=== PATIENT | male | born 1995 | race Caucasian/White ===

== ENCOUNTER 2020-02-17 11:00 | Emergency (ER) | payer SELFPAY ==
[2020-02-17 11:10] VITALS: BP 143/96; RESP 20; TEMP 36.9; O2SAT 96; BMI 27.3
--- NOTE | 2020-02-17 11:22 | CT_ITS ---
WS: [id number] CT ORBITS, NONCONTRAST. HISTORY: right orbit injury Technique: All CT scans at [facility] use at least one of these dose optimization techniq ues: automated exposure control; mA and/or kV adjustment per patient size (includes targeted exams wh ere dose is matched to clinical indication); or iterative reconstruction. DLP: 389.32 mGy.cm COMPARISON: None available. No acute fractures are identified. Nasal bones and zygomatic arches are intact. No air-fluid levels i n the sinuses. Herrera of the orbits are intact. Lamina papyracea are still intact also. There is moder ate soft tissue edema and swelling centered over the RIGHT orbit, maxillary sinus and zygomatic arch. Soft tissue edema extends over the globe. There is no post septal hematoma or edema. Globe is intact . CT/CT orbit BI wo con* [id number] IMPRESSION: 1. No orbital fracture. 2. Large amount of soft tissue edema and hematoma centered over the RIGHT glob e, orbit and facial bones.
[2020-02-17 11:27] VITALS: BP 159/107; PULSE 71; RESP 16; O2SAT 97
--- NOTE | 2020-02-17 11:27 | ED_ITS ---
HPI - Headache General: Chief Complaint: Eye Problems Stated Complaint: Right eye Time Seen by Provider: 02/17/20 11:03 History of Present Illness: HPI Narrative: 24-year-old male patient presents to the emergency department with right eye injury/pain/black eye. States was playing baseball last night when the baseball hit him in the eye, he reports eye is swollen shut, complaining of periorbital right eye pain. He states did not lose consciousness, did not vomit, he reports blurred vision from the right eye when he tries to open it. He does report some dizziness. Pertinent past history: recent trauma Onset (ago): hour(s) (12) Location: right and other (Periorbital) Severity: moderate Quality & Timing: aching and throbbing Exacerbating factors: movement of head/neck Relieving factors: rest Context: occurred with exertion/activity and recent head injury Associated symptoms: Reports no associated symptoms; Deny chest pain, confusion, diaphoresis, fever(s), nausea, rash or vomiting Treatments prior to arrival: none Review of Systems General: Reports: 10 or more systems reviewed and unremarkable except in HPI and below Const: Denies: fever(s), chills or diaphoresis Eyes: Denies: blurry vision or eye redness ENMT: Denies: throat pain, dental pain or disequilibrium Card: Denies: chest pain, palpitations or irregular heart rhythm Resp: Denies: dyspnea, productive cough, non-productive cough or wheezing GI: Denies: abdominal pain, nausea or vomiting : Denies: dysuria Musc: Denies: back pain Skin/Breast: Denies: rash or pruritus Neuro: Reports: headache(s) and dizziness; Denies: weakness in extremities, difficulty walking, confusion, behavioral changes or difficulty communicating thoughts Tiago/Lymph: Denies: easy bruising Physical Exam Const: COMMON NORMALS: no acute distress, patient oriented x3, healthy appearing and alert GENERAL APPEARANCE: cooperative, comfortable and well hydrated HENMT: COMMON NORMALS: external ears normal, TM's normal bilaterally, Normal external nose present, Normal nasal mucous membranes and turbinates present and moist oral mucous membranes HEAD & SCALP: occipital foramen tenderness (with ecchymosis) on the right FACE & SINUS: sinus tenderness maxillary and erythema; no abrasion, no laceration and no maxillary instability NOSE: Normal external nose present, Normal nares present, Normal nasal mucous membranes and turbinates present, No nasal discharge present and Abnormal external nose present EXTERNAL EAR: Yes external ears normal TYMPANIC MEMBRANE: TM's normal bilaterally MOUTH: Normal oral and palatal mucosa present THROAT: posterior oropharynx normal Eye: COMMON NORMALS: Equal, round and reactive pupils present and EOMs intact bilaterally VISUAL CHUN: No peripheral vision loss and No central vision loss PERIORBITAL: periorbital findings abnormal positive right EYELID: eyelid abnormality (with edema and ecchymosis) right upper eyelid and right lower eyelid CORNEA: Yes corneas normal, fluorescein used and other (difficult exam due to eyelid edema) PUPIL: Yes Equal, round and reactive pupils present, Yes pupil size - right Right pupil size (mm): 4 and Yes pupil size - left Left pupil size (mm): 4 EOM: No EOM abnormal and No movement deficit Neck/C-Spine: COMMON NORMALS: full ROM and no lymphadenopathy GENERAL: Yes normal visual inspection and Yes trachea midline CERVICAL SPINE: Yes cervical ROM normal, No pain with cervical ROM, No Cervical spine tenderness and No Paracervical muscle tenderness Lymph: LYMPHATIC: no lymphadenopathy noted Chest: COMMONS NORMALS: normal inspection of the chest Resp: COMMON NORMALS: normal respiratory effort and clear to auscultation bilaterally AUSCULTATION: clear to auscultation bilaterally Cardio: COMMON NORMALS: regular rhythm, S1 normal heart sound present and S2 normal heart sound present RHYTHM: regular rhythm HEART SOUNDS: S1 normal heart sound present and S2 normal heart sound present GI: COMMON NORMALS: Soft to palpation and non-tender INSPECTION: Yes normal to inspection PALPATION: Yes Soft to palpation : COMMON NORMALS: Yes no CVA tenderness BLADDER/KIDNEY EXAM: Yes no CVA tenderness Back/Pelvis: COMMON NORMALS: no CVA tenderness and thoracic and lumbar spine normal to inspection Extremity: COMMON NORMALS: normal to inspection and capillary refill normal Neuro: COMMON NORMALS: patient oriented x3 and no focal motor deficits SENSORIUM/ORIENTATION: Yes alert Psych: COMMON NORMALS: mental status grossly normal, Normal thought process present and cooperative ACTIVITY/MOTOR BEHAVIOR: Yes appropriate eye contact THOUGHT PROCESS: Normal thought process present Skin: COMMON NORMALS: no rashes or lesions noted and turgor normal GENERAL SKIN EXAM: no rashes or lesions noted and turgor normal Course ED course: 24-year-old male patient presents to the emergency department with right eye injury. CT of the right orbit did not reveal acute fracture, positive for moderate tissue edema and swelling. Fluorescein stain attempted but was difficult to eyelid edema. No acute corneal abrasion appreciated. Eye tracking intact without deficit. CT results discussed with the patient as well as need to return to the emergency department if he develops the worst headache of his life, confusion and vomiting. Verbalized understanding. Agrees to follow-up with his primary care physician in 4 to 5 days if he fails to improve. He agrees to apply cool compresses and take anti-inflammatories as needed for pain. Vital Signs: Vital signs: Vital Signs Temperature 98.4 F 02/17/20 11:10 Pulse Rate 71 02/17/20 11:27 Respiratory Rate 16 02/17/20 13:19 Blood Pressure 131/99 02/17/20 13:19 Pulse Oximetry 97 02/17/20 11:27 MDM - Headache Imaging Data^: CT Head: Radiologist's impression: [place] [address] CT Scan Report Signed Patient: Aaron Bermeo Unit #: [id number] : 1995 Age/Sex: 24 / M ADM Date: 02/17/20 Loc: ER Room/Bed: Attending Dr: Ordering Provider/Ordering MD: Sandy Bradley Date of Service: 02/17/20 Procedure(s): CT orbit BI wo con* [id number] Accession Number(s): [id number] Report Number: [id number] WS: [id number] CT ORBITS, NONCONTRAST. HISTORY: right orbit injury Technique: All CT scans at [facility] use at least one of these dose optimization techniques: automated exposure control; mA and/or kV adjustment per patient size (includes targeted exams where dose is matched to clinical indication); or iterative reconstruction. DLP: 389.32 mGy.cm COMPARISON: None available. No acute fractures are identified. Nasal bones and zygomatic arches are intact. No air-fluid levels in the sinuses. Herrera of the orbits are intact. Lamina papyracea are still intact also. There is moderate soft tissue edema and swelling centered over the RIGHT orbit, maxillary sinus and zygomatic arch. Soft tissue edema extends over the globe. There is no post septal hematoma or edema. Globe is intact. CT/CT orbit BI wo con* [id number] IMPRESSION: 1. No orbital fracture. 2. Large amount of soft tissue edema and hematoma centered over the RIGHT globe, orbit and facial bones. Dictated By: Christina Lewis DO Signed By: Christina Lewis DO Signed Date/Time: 02/17/20 1240 DD/ 1237 Discharge Plan Discharge Patient Disposition: Home Clinical Impression: Traumatic hematoma of right orbit Qualifiers: Encounter type: initial encounter Qualified Code(s): S05.11XA - Contusion of eyeball and orbital tissues, right eye, initial encounter Facial contusion Qualifiers: Encounter type: initial encounter Qualified Code(s): S00.83XA - Contusion of other part of head, initial encounter Condition: Stable Prescriptions: New IBU 800 mg tablet 800 mg PO TID PRN (Reason: pain) Qty: 30 RF: 0 No Action alprazolam 0.5 mg tablet 0.5 mg PO DAILY PRN (Reason: anxiety) 30 Days Qty: 24 RF: 4 Discharge Orders: Discharge Order (Routine); Ordered 02/17/20 Ordered By: Sandy Bradley Referrals: Aneta Pack MD [Primary Care Provider] - Discharge Diet: Usual diet Discharge Activity: Limit activity as instructed Patient Instructions: Black Eye (ED), Minor Head Injury (ED), Contusion in Adults (ED) Activity Restrictions/Additional Instructions: Limit activity today and tomorrow Keep the head of your bed elevated during sleep and rest, this will help decrease swelling Return to the emergency department if you develop the worst headache of your life, vomiting uncontrollably or confusion Cool compresses to the right eye, this will help with swelling and pain Prescription of ibuprofen has been given to you, do not take [id number] medication with exception of Tylenol as duplicate therapy can occur Return to the emergency department if you experience decreased vision or inability to see from the right eye. Follow-up with your primary care physician if you fail to improve in the next 4 to 5 days. Discharge Date/Time: 02/17/20 13:22 Coding Level of Care Code ED Cash Processing Specialist for Dalila Fwd Exam Comprehensive
[2020-02-17] MEDS: acetaminophen 500 mg Tablet 1000 MG PO (12:02)
[2020-02-17] MEDS: fluorescein 1 mg Strip EYE-RIGHT (12:09)
[2020-02-17] MEDS: tetracaine 0.5% Op Soln 4 mL Btl 1 DROP EYE-RIGHT (12:10)
[2020-02-17] MEDS: eye irrigation 30 mL Btl EYE-RIGHT (12:10)
[2020-02-17 13:19] VITALS: BP 131/99; RESP 16
== END 2020-02-17 13:22 | disposition home or self-care (01) ==
PROVIDERS: Emergency Provider Nurse Practitioner Family; PCP Family Medicine
DX: S05.11XA Contusion of eyeball and orbital tissues, right eye, initial encounter (principal); S00.83XA Contusion of other part of head, initial encounter; W21.03XA Struck by baseball, initial encounter; Y93.64 Activity, baseball
CPT/HCPCS: 12345; 70480; 99281; 99283

== ENCOUNTER 2020-11-01 20:33 | Observation (INO) | payer SELFPAY ==
[2020-11-01 20:39] VITALS: BP 136/85; PULSE 123; RESP 16; TEMP 37.2; O2SAT 96; BMI 27.3
[2020-11-01 20:44] VITALS: PULSE 123; RESP 18; O2SAT 97
--- NOTE | 2020-11-01 20:46 | CTR_ITS ---
PROCEDURE INFORMATION: Exam: CT Head Without Contrast Exam date and time: 11/01/2020 8:46 PM Age: 25 years old Clinical indication: Condition or disease; Convulsions or seizures; Additional info: Seizure TECHNIQUE: Imaging protocol: Computed tomography of the head without contrast. Radiation optimization: All CT scans at this facility use at least one of these dose optimization techniques: automated exposure control; mA and/or kV adjustment per patient size (includes targeted exams where dose is matched to clinical indication); or iterative reconstruction. COMPARISON: CT orbit BI wo con* [id number] 02/17/2020 12:11 PM RADIATION DOSE METRICS: Total DLP (mGy-cm): 841.46 FINDINGS: Brain: The brain is unremarkable. There is no mass effect or significant white matter disease. There is no acute intracranial hemorrhage. Cerebral ventricles: There is no significant ventricular dilation. The basal cisterns are unremarkable. Paranasal sinuses: The paranasal sinuses are clear. Mastoid air cells: The mastoid air cells are clear. Bones/joints: The calvarium is intact. Soft tissues: The visible extracranial soft tissues are unremarkable. CT/CT head wo con* [id number] IMPRESSION: No acute findings. Radiation Dose CTDIVOL = (mGy): DLP = 841.46 (mGy-cm)
--- NOTE | 2020-11-01 20:48 | XRR_ITS ---
PROCEDURE INFORMATION: Exam: XR Chest Exam date and time: 11/01/2020 8:48 PM Age: 25 years old Clinical indication: Other: Seizure TECHNIQUE: Imaging protocol: XR of the chest. Views: 2 views. COMPARISON: No relevant prior studies available. FINDINGS: Lungs: Unremarkable. No consolidation. Pleural spaces: Unremarkable. No pleural effusion. No pneumothorax. Heart/Mediastinum: Unremarkable. No cardiomegaly. Bones/joints: Unremarkable. XR/XR chest 2V* [id number] IMPRESSION: No acute findings.
[2020-11-01 21:07] LABS: Basophils # 0.1 10^3/uL (0.0-0.1); Basophils % 0.9 %; Eosinophils # 0.1 10^3/uL (0.0-0.8); Eosinophils % 0.8 %; Hematocrit 50.3 % (42.0-52.0); Hemoglobin 16.6 g/dL (11.7-16.6); Lymphocytes # 2.8 10^3/uL (0.8-4.8); Lymphocytes % 26.4 %; Mean Corpuscular Hemoglobin 35.1 pg (28.0-34.0); Mean Corpuscular Volume 106.3 fL (80-94); Monocytes # 1.2 10^3/uL (0.2-0.9); Monocytes % 10.8 %; Neutrophils # 6.41 10^3/uL (1.8-7.7); Neutrophils % 60.2 %; Nucleated Red Blood Cells % 0 %; Platelet Count 243 10^3/cmm (130-400); Red Blood Count 4.73 10^6/uL (4.1-5.3); Red Cell Distribution Width 11.7 % (12.1-15.1); White Blood Count 10.7 10^3/uL (4.0-10.0)
[2020-11-01 21:12] LABS: Amphetamines Screen Urine Negative (Negative); Barbiturates Screen Urine Negative (Negative); Benzodiazepines Screen Urine Positive (Negative); Cocaine Screen Urine Negative (Negative); Opiate Screen Urine Negative (Negative); PCP Screen Urine Negative (Negative); THC Screen Urine Negative (Negative)
[2020-11-01 21:23] LABS: Add Urine Culture? No; Add Urine Microscopic? YES; Bacteria Urine TRACE /hpf; Bilirubin Urine Neg (Negative); Blood Urine 3+ (Negative); Glucose Urine UA Norm (Normal); Hyaline Casts Urine 25-40 /lpf; Ketones Urine 1+ (Negative); Leukocyte Esterase Urine Negative (Negative); Mucus Urine 1+ /hpf; Nitrate Urine Negative (Negative); Protein Urine 2+ (Negative); RBC Urine 0-4 /hpf (0-2); Squamous Epithelial Cell Urine 0-4 /hpf (0-5); Urine Appearance Clear (CLEAR); Urine Color Yellow (Yellow); Urobilinogen Urine Norm (Negative); WBC Urine 0-4 /hpf (0-5); pH Urine 5 (5-7)
[2020-11-01 21:28] VITALS: BP 128/84; PULSE 96; RESP 19; O2SAT 100
[2020-11-01 21:34] LABS: Alanine Aminotransferase 98 U/L (0-41); Albumin Level 5.3 g/dL (3.5-5.2); Alkaline Phosphatase 124 IU/L (40-130); Anion Gap 41.5 (5-19); Aspartate Amino Transferase 131 U/L (0-40); Blood Urea Nitrogen 12 mg/dL (6-20); C Reactive Protein 3.5 mg/L (0.0-4.9); Calcium 9.7 mg/dL (8.5-10.5); Carbon Dioxide 10 mmol/L (22-29); Chloride 91 mmol/L (98-107); Globulin 3.5 g/dL (1.3-4.6); Glomerular Filtration Rate 45.8 mL/min (90-130); Glucose 156 mg/dL (65-115); Osmolality Calculated 291 mOsm/kg (285-295); Potassium 3.5 mmol/L (3.5-5.1); Sodium 139 mmol/L (136-145); Thyroid Stimulating Hormone 3.58 uIU/mL (0.27-4.20); Total Bilirubin 0.8 mg/dL (0.15-1.2); Total Protein 8.8 g/dL (6.6-8.7)
[2020-11-01 21:35] LABS: Creatine Phosphokinase 403 U/L (39-308)
[2020-11-01] MEDS: acetaminophen 500 mg Tablet 1000 MG PO (21:47)
[2020-11-01] MEDS: sodium chloride 0.9% 1,000 ML 999 ML IV (21:47)
[2020-11-01 22:34] LABS: Alcohol Level 25 mg/dL (0-10)
[2020-11-01 23:02] VITALS: BP 127/80; PULSE 88; RESP 18; O2SAT 99
[2020-11-01 23:21] LABS: Lactic Sepsis W/Reflex 1.2 mmol/L (0.5-2.2)
[2020-11-01 23:25] LABS: ABG PCO2 32.5 mmHg (35-45); ABG PH Result 7.44 (7.35-7.45); Arterial Blood Gas Hematocrit 45.5 % (42-52); Base Excess ABG -1.5 mmol/L (-2.0-2.0); Blood Gas Allen Test Pos; Blood Gas Sample Site Radial, right; Blood Gas Sample Type Arterial; HCO3 ABG 21.9 mmol/L (22-26); Oxygen Device ROOM AIR; PO2 ABG 89.5 mmHg (80.0-100.0)
--- NOTE | 2020-11-02 | P.HP_ITS ---
Providers/Chief Complaint Primary Care Provider: Aneta Pack MD Chief Complaint: SEIZURE History of Present Illness Aaron Bermeo is a 25 year old male with no known medical history presented today with chief complaint of an episode of seizure. 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 His seizure was witnessed by his fianc?e. Seizure duration 30 seconds. He bit his tongue however no rectal or urinary incontinence. No previous history of seizure. Of note he has been experiencing headache which she is describing as throbbing frontal pain without rhinorrhea. He has not noticed any weakness in his arms or legs or vision change. He chews tobacco and does drink beer on occasional basis. Denies IV drug abuse. Diagnostics in the ER revealed mild leukocytosis, KIMBERLY, signs of dehydration, CPK 400, normal TSH, CT head and chest x-ray unremarkable, currently being admitted for IV fluid hydration because of KIMBERLY and signs of dehydration Review of Systems Const: Denies: fever(s) Eyes: Denies: change in vision ENMT: Denies: throat pain Card: Denies: chest pain Resp: Denies: dyspnea GI: Denies: abdominal pain : Denies: flank pain Musc: Denies: neck pain Skin/Breast: Denies: rash Neuro: Reports: headache(s) and seizure-like activity Psych: Denies: anxiety Endo: Denies: polyuria Tiago/Lymph: Denies: easy bruising All/Imm: Denies: urticaria Medications/Allergies Home Medications Medication Instructions Recorded Confirmed Last Taken Type alprazolam 0.5 mg tablet 0.5 mg PO DAILY PRN 60 Days #60 tab 07/15/20 07/15/20 Unknown Rx Allergies Allergy/AdvReac Type Severity Reaction Status Date / Time seafood Allergy itching Uncoded 11/01/20 20:44 PFSH Acute PFSH: Medical History (Updated 11/02/20 @ 01:57 by Paris Soria MD) Anxiety Insomnia Surgical History (Updated 11/02/20 @ 01:57 by Paris Soria MD) No pertinent past surgical history Family History (Updated 11/02/20 @ 01:57 by Paris Soria MD) Other CAD (coronary artery disease) Cancer Social History (Updated 11/02/20 @ 01:57 by Paris Soria MD) Smoking and tobacco status: current some day smoker smokeless tobacco Alcohol intake: current Alcohol intake frequency: holidays/special occasions only Substance/Drug Use: never Housing: House Vitals/I&O/Wt Last Vital Signs Temp 98.9 F 11/01/20 20:39 Pulse 88 11/01/20 23:02 Resp 18 11/01/20 23:02 BP 127/80 11/01/20 23:02 Pulse Ox 99 11/01/20 23:02 11/01/20 11/01/20 11/02/20 14:59 22:59 06:59 Intake Total 1000 / 1000 Balance 1000 / 1000 Weight last 48 hrs Weight 81.647 kg Physical Exam Narrative: EXAM NARRATIVE: Young male currently laying comfortably in his bed Sinus rhythm, no active chest pain Looks clinically dehydrated w flushed skin Tongue bite wound noted No abdominal pain No neurological deficit awake alert and attentive GCS 15 Appropriate mood and affect No joint swelling EOMI, PERRLA No signs of meningitis no audible stridor or wheezing Data : 11/01/20 20:20 11/01/20 20:20 A&P Assessment and plan (1) Seizure: Status: Acute (2) Dehydration: Status: Acute (3) KIMBERLY (acute kidney injury): Status: Acute Additional A&P Information Seizure, tonic-clonic for 30 seconds Patient is complaining of headache which he is attributing to lack of sleep he takes alprazolam for sleep and last 48 hours he only slept 1 to 2 hours, no fever, chest pain, shortness of breath, patient is endorsing headache which he describing as throbbing in nature, no rhinorrhea, his headache does not get worse with sneezing or coughing, no signs of meningitis No severe electrolyte abnormality No etiology found for this isolated event of seizure, CT head unremarkable, CPK 403 with signs of dehydration Continue fluid resuscitation He will need outpatient neurology follow-up Mild KIMBERLY: Anticipating improvement with fluid resuscitation Patient denies Vaps, endorses chewing tobacco and occasional beer usage Full code Regular diet DVT prophylaxis not indicated Attestations Medical Necessity Statement*: Anticipating discharge within 48 hours, overnight monitoring needed because of IV fluid hydration requirement for improvement of KIMBERLY Time Spent in Patient Care: 30mins Coding Level of Care Code Acute Theater Set Production Designer for Chg Fwd Diagnoses Seizure R56.9 Dehydration E86.0 KIMBERLY (acute kidney injury) N17.9
--- NOTE | 2020-11-02 00:59 | ED_ITS ---
HPI - Seizure General: Chief Complaint: ER Hold Stated Complaint: SEIZURE Time Seen by Provider: 11/01/20 20:40 Source: patient and EMS Mode of arrival: EMS Limitations: no limitations History of Present Illness: HPI Narrative: This is a 25 year old male with no prior history of seizures, who was brought in to the ED via EMS with complaints of a witnessed seizure. It was described as generalized tonic clonic and lasted about 45 seconds. He was subsequently in a post ictal period for about 4 minutes. He thinks he may have had a heat stroke as he had been out working all day in the heat. He then subsequently played soft ball. No fever, no prior illness. He denies chest pain or shortness or dizziness. complaint: seizure Onset (ago): minute(s) (30) Description of Episode: tonic-clonic movement Duration of episode: 45 -: second(s) Witnessed: Yes - by Bystander Trauma: No Seizure History: No Place: Outdoors Possible Precipitating Event: none Associated symptoms: Deny chest pain, chills, confusion, cough, diaphoresis, fever(s), anorexia, malaise, rash, short of breath, syncope or weakness Review of Systems General: Reports: 10 or more systems reviewed and unremarkable except in HPI and below Const: Denies: fever(s), chills, malaise or diaphoresis Card: Denies: chest pain or syncope Neuro: Denies: confusion PFSH ED PFSH: Medical History (Updated 11/19/20 @ 16:13 by Liberty Calvo MD, [facility] [place]) Anxiety Insomnia Seizure Surgical History No pertinent past surgical history Family History Other CAD (coronary artery disease) Cancer Social History Smoking and tobacco status: current some day smoker smokeless tobacco Alcohol intake: current Alcohol intake frequency: holidays/special occasions only Housing: House Physical Exam Const: COMMON NORMALS: no acute distress, average body habitus, patient oriented x3, no limitations, healthy appearing, alert and well nourished HENMT: COMMON NORMALS: normocephalic, atraumatic and moist oral mucous membranes HEAD & SCALP: normocephalic and atraumatic Eye: COMMON NORMALS: Equal, round and reactive pupils present, EOMs intact bilaterally, conjunctivae normal and no scleral icterus CONJUNCTIVA: Yes conjunctivae normal PUPIL: Yes Equal, round and reactive pupils present Neck/C-Spine: COMMON NORMALS: no meningeal signs and no JVD Resp: COMMON NORMALS: normal respiratory effort, No retractions, No use of accessory muscles, clear to auscultation bilaterally and percussion normal AUSCULTATION: clear to auscultation bilaterally PERCUSSION: percussion normal Cardio: COMMON NORMALS: no JVD, regular rate, regular rhythm, S1 normal heart sound present, S2 normal heart sound present, No gallops present (Cardio), No clicks present (Cardio), No murmurs present (Cardio), No rub (Cardio) and Peripheral pulses 2+ throughout RATE: regular rate RHYTHM: regular rhythm HEART SOUNDS: S1 normal heart sound present and S2 normal heart sound present PERIPHERAL PULSES: Peripheral pulses 2+ throughout GI: COMMON NORMALS: Normal to inspection, nondistended, normoactive bowel sounds present, Soft to palpation, non-tender, No hepatosplenomegaly present, no masses and no bruits PALPATION: Yes Soft to palpation and Yes No hepatosplenomegaly present Extremity: COMMON NORMALS: normal to inspection, full ROM, capillary refill normal, no calf tenderness and no pedal edema Neuro: COMMON NORMALS: patient oriented x3 SENSORIUM/ORIENTATION: Yes alert MENINGEAL SIGNS: Yes no meningeal signs Skin: COMMON NORMALS: no rashes or lesions noted, no wounds, turgor normal, no jaundice, no petechiae and no mottling GENERAL SKIN EXAM: no rashes or lesions noted and turgor normal Course Consultations: Consultation #1: Discussed the patient with Dr. Soria, hospitalist and he kindly accepted the patient to his service for overnight admission. Time: 22:50 Vital Signs: Vital signs: Vital Signs Temperature 98.4 F 11/02/20 09:55 Pulse Rate 63 11/02/20 09:55 Respiratory Rate 16 11/02/20 09:55 Blood Pressure 124/82 11/02/20 09:55 Pulse Oximetry 98 11/02/20 09:55 MDM - Seizure MDM Narrative: Medical decision making narrative: This is a 25 year old male who presents to the ED following a seizure. In the ED evaluation showed he had KIMBERLY. He also had a mild elevation of CPK. His head CT was negative. He is being admitted to the hospital for further evaluation and management. Medical Records: Attestation: I reviewed the patient's medical records. Lab Data: Attestation: I reviewed the patient's lab results. Labs: Lab Results 11/01/20 11/01/20 11/01/20 Range/Units 20:20 20:20 20:20 WBC 10.7 H (4.0-10.0) 10^3/ uL RBC 4.73 (4.1-5.3) 10^6/u L Hgb 16.6 (11.7-16.6) g/dL Hct 50.3 (42.0-52.0) % MCV 106.3 H (80-94) fL MCH 35.1 H (28.0-34.0) pg MCHC 33.0 (30.0-36.0) g/dL RDW 11.7 L (12.1-15.1) % Plt Count 243 (130-400) 10^3/c mm MPV 11.0 H (7.4-10.4) fL Neut % (Auto) 60.2 % Lymph % (Auto) 26.4 % [place] % (Auto) 10.8 % Eos % (Auto) 0.8 % Baso % (Auto) 0.9 % Neut # (Auto) 6.41 (1.8-7.7) 10^3/u L Lymph # (Auto) 2.8 (0.8-4.8) 10^3/u L [place] # (Auto) 1.2 H (0.2-0.9) 10^3/u L Eos # (Auto) 0.1 (0.0-0.8) 10^3/u L Baso # (Auto) 0.1 (0.0-0.1) 10^3/u L Nucleated RBC % (a uto) 0 % Nucleated RBCs # 0.0 /100WBC Sodium 139 (136-145) mmol/L Potassium 3.5 (3.5-5.1) mmol/L Chloride 91 L (98-107) mmol/L Carbon Dioxide 10 L (22-29) mmol/L Anion Gap 41.5 H (5-19) BUN 12 (6-20) mg/dL Creatinine 1.8 H (0.7-1.2) mg/dL GFR Calculation 45.8 L (90-130) mL/min Glucose 156 H (65-115) mg/dL Calculated Osmolal ity 291 (285-295) mOsm/k g Calcium 9.7 (8.5-10.5) mg/dL Total Bilirubin 0.8 (0.15-1.2) mg/dL AST 131 H (0-40) U/L ALT 98 H (0-41) U/L Alkaline Phosphata se 124 (40-130) IU/L Creatine Kinase 403 H* (39-308) U/L C-Reactive Protein 3.5 (0.0-4.9) mg/L Total Protein 8.8 H (6.6-8.7) g/dL Albumin 5.3 H (3.5-5.2) g/dL Globulin 3.5 (1.3-4.6) g/dL Vitamin B12 (232-1245) pg/mL Folate (4.5-32.2) ng/mL TSH 3.58 (0.27-4.20) uIU/ mL Prolactin (4.0-15.2) ng/mL Urine Color (Yellow) Urine Appearance (CLEAR) Urine pH (5-7) Ur Specific Gravit y (1.005-1.030) Urine Protein (Negative) Urine Glucose (UA) (Normal) Urine Ketones (Negative) Urine Blood (Negative) Urine Nitrate (Negative) Urine Bilirubin (Negative) Urine Urobilinogen (Negative) mg/dL Ur Leukocyte Elham ase (Negative) Urine RBC (0-2) /hpf Urine WBC (0-5) /hpf Ur Squamous Epith Cells (0-5) /hpf Amorphous Sediment Urine Bacteria (NONE) /hpf Hyaline Casts /lpf Urine Mucus /hpf Urine Opiates Scre en (Negative) ng/mL Ur Barbiturates Sc reen (Negative) ng/mL Ur Phencyclidine S crn (Negative) ng/mL Ur Amphetamines Sc reen (Negative) ng/mL U Benzodiazepines Scrn (Negative) ng/mL Urine Cocaine Scre en (Negative) ng/mL U Marijuana (THC) Screen (Negative) ng/mL Ethyl Alcohol 25 H (0-10) mg/dL Hepatitis A IgM Ab (Nonreactive) Hep Bs Antigen (Nonreactive) Hep B Core IgM Ab (Nonreactive) Hepatitis C Antibo dy (Nonreactive) 11/01/20 11/01/20 11/01/20 Range/Units 20:20 20:20 20:20 WBC (4.0-10.0) 10^3/ uL RBC (4.1-5.3) 10^6/u L Hgb (11.7-16.6) g/dL Hct (42.0-52.0) % MCV (80-94) fL MCH (28.0-34.0) pg MCHC (30.0-36.0) g/dL RDW (12.1-15.1) % Plt Count (130-400) 10^3/c mm MPV (7.4-10.4) fL Neut % (Auto) % Lymph % (Auto) % [place] % (Auto) % Eos % (Auto) % Baso % (Auto) % Neut # (Auto) (1.8-7.7) 10^3/u L Lymph # (Auto) (0.8-4.8) 10^3/u L [place] # (Auto) (0.2-0.9) 10^3/u L Eos # (Auto) (0.0-0.8) 10^3/u L Baso # (Auto) (0.0-0.1) 10^3/u L Nucleated RBC % (a uto) % Nucleated RBCs # /100WBC Sodium (136-145) mmol/L Potassium (3.5-5.1) mmol/L Chloride (98-107) mmol/L Carbon Dioxide (22-29) mmol/L Anion Gap (5-19) BUN (6-20) mg/dL Creatinine (0.7-1.2) mg/dL GFR Calculation (90-130) mL/min Glucose (65-115) mg/dL Calculated Osmolal ity (285-295) mOsm/k g Calcium (8.5-10.5) mg/dL Total Bilirubin (0.15-1.2) mg/dL AST (0-40) U/L ALT (0-41) U/L Alkaline Phosphata se (40-130) IU/L Creatine Kinase (39-308) U/L C-Reactive Protein (0.0-4.9) mg/L Total Protein (6.6-8.7) g/dL Albumin (3.5-5.2) g/dL Globulin (1.3-4.6) g/dL Vitamin B12 (232-1245) pg/mL Folate 8.3 (4.5-32.2) ng/mL TSH (0.27-4.20) uIU/ mL Prolactin 54.74 H (4.0-15.2) ng/mL Urine Color (Yellow) Urine Appearance (CLEAR) Urine pH (5-7) Ur Specific Gravit y (1.005-1.030) Urine Protein (Negative) Urine Glucose (UA) (Normal) Urine Ketones (Negative) Urine Blood (Negative) Urine Nitrate (Negative) Urine Bilirubin (Negative) Urine Urobilinogen (Negative) mg/dL Ur Leukocyte Elham ase (Negative) Urine RBC (0-2) /hpf Urine WBC (0-5) /hpf Ur Squamous Epith Cells (0-5) /hpf Amorphous Sediment Urine Bacteria (NONE) /hpf Hyaline Casts /lpf Urine Mucus /hpf Urine Opiates Scre en (Negative) ng/mL Ur Barbiturates Sc reen (Negative) ng/mL Ur Phencyclidine S crn (Negative) ng/mL Ur Amphetamines Sc reen (Negative) ng/mL U Benzodiazepines Scrn (Negative) ng/mL Urine Cocaine Scre en (Negative) ng/mL U Marijuana (THC) Screen (Negative) ng/mL Ethyl Alcohol (0-10) mg/dL Hepatitis A IgM Ab Non-reactive (Nonreactive) Hep Bs Antigen Non-reactive (Nonreactive) Hep B Core IgM Ab Non-reactive (Nonreactive) Hepatitis C Antibo dy Non-reactive (Nonreactive) 11/01/20 11/01/20 11/01/20 Range/Units 20:20 20:55 20:55 WBC (4.0-10.0) 10^3/ uL RBC (4.1-5.3) 10^6/u L Hgb (11.7-16.6) g/dL Hct (42.0-52.0) % MCV (80-94) fL MCH (28.0-34.0) pg MCHC (30.0-36.0) g/dL RDW (12.1-15.1) % Plt Count (130-400) 10^3/c mm MPV (7.4-10.4) fL Neut % (Auto) % Lymph % (Auto) % [place] % (Auto) % Eos % (Auto) % Baso % (Auto) % Neut # (Auto) (1.8-7.7) 10^3/u L Lymph # (Auto) (0.8-4.8) 10^3/u L [place] # (Auto) (0.2-0.9) 10^3/u L Eos # (Auto) (0.0-0.8) 10^3/u L Baso # (Auto) (0.0-0.1) 10^3/u L Nucleated RBC % (a uto) % Nucleated RBCs # /100WBC Sodium (136-145) mmol/L Potassium (3.5-5.1) mmol/L Chloride (98-107) mmol/L Carbon Dioxide (22-29) mmol/L Anion Gap (5-19) BUN (6-20) mg/dL Creatinine (0.7-1.2) mg/dL GFR Calculation (90-130) mL/min Glucose (65-115) mg/dL Calculated Osmolal ity (285-295) mOsm/k g Calcium (8.5-10.5) mg/dL Total Bilirubin (0.15-1.2) mg/dL AST (0-40) U/L ALT (0-41) U/L Alkaline Phosphata se (40-130) IU/L Creatine Kinase (39-308) U/L C-Reactive Protein (0.0-4.9) mg/L Total Protein (6.6-8.7) g/dL Albumin (3.5-5.2) g/dL Globulin (1.3-4.6) g/dL Vitamin B12 782 (232-1245) pg/mL Folate (4.5-32.2) ng/mL TSH (0.27-4.20) uIU/ mL Prolactin (4.0-15.2) ng/mL Urine Color Yellow (Yellow) Urine Appearance Clear (CLEAR) Urine pH 5 (5-7) Ur Specific Gravit y 1.020 (1.005-1.030) Urine Protein 2+ H (Negative) Urine Glucose (UA) Norm (Normal) Urine Ketones 1+ H (Negative) Urine Blood 3+ H (Negative) Urine Nitrate Negative (Negative) Urine Bilirubin Neg (Negative) Urine Urobilinogen Norm (Negative) mg/dL Ur Leukocyte Elham ase Negative (Negative) Urine RBC 0-4 H (0-2) /hpf Urine WBC 0-4 H (0-5) /hpf Ur Squamous Epith Cells 0-4 H (0-5) /hpf Amorphous Sediment Not Reportable Urine Bacteria Trace (NONE) /hpf Hyaline Casts 25-40 H /lpf Urine Mucus 1+ /hpf Urine Opiates Scre en Negative (Negative) ng/mL Ur Barbiturates Sc reen Negative (Negative) ng/mL Ur Phencyclidine S crn Negative (Negative) ng/mL Ur Amphetamines Sc reen Negative (Negative) ng/mL U Benzodiazepines Scrn Positive H (Negative) ng/mL Urine Cocaine Scre en Negative (Negative) ng/mL U Marijuana (THC) Screen Negative (Negative) ng/mL Ethyl Alcohol (0-10) mg/dL Hepatitis A IgM Ab (Nonreactive) Hep Bs Antigen (Nonreactive) Hep B Core IgM Ab (Nonreactive) Hepatitis C Antibo dy (Nonreactive) Imaging Data^: CXR: Attestation: I personally reviewed and interpreted this imaging study as follows: Radiologist's impression: [address] [id number] ReportSigned Patient: Aaron Bermeo RUnsavannah #: [id number]: 1995Acct#:[id number]/Sex: 25 / MADM Date: 11/01/20Loc: ERRoom/Bed:Attending Dr: Ordering Provider/Ordering MD: Liberty Calvo MD, [facility] [place] Date of Service: 11/01/20 Procedure(s): XR chest 2V* [id number] Accession Number(s): [id number] Report Number: [id number] PROCEDURE INFORMATION: Exam: XR Chest Exam date and time: 11/01/2020 8:48 PM Age: 25 years old Clinical indication: Other: Seizure TECHNIQUE: Imaging protocol: XR of the chest. Views: 2 views. COMPARISON: No relevant prior studies available. FINDINGS: Lungs: Unremarkable. No consolidation. Pleural spaces: Unremarkable. No pleural effusion. No pneumothorax. Heart/Mediastinum: Unremarkable. No cardiomegaly. Bones/joints: Unremarkable. XR/XR chest 2V* [id number] IMPRESSION: No acute findings. Dictated By:Lloyd Carpenter MDSigned By:Lloyd Carpenter MDSigned Date/Time:11/01/202126DD/ 24 CT Head: Attestation: I personally reviewed and interpreted this imaging study as follows: Radiologist's impression: [employer] [place] [id number] [facility].[place], [place] [address]LR Scan ReportSigned Patient: Aaron Bermeo #: [id number]: 1995Acct#:[id number]/Sex: 25 / MADM Date: 11/01/20Loc: ERRoom/Bed:Attending Dr: Ordering Provider/Ordering MD: Liberty Calvo MD, [facility] [place] Date of Service: 11/01/20 Procedure(s): CT head wo con* [id number] Accession Number(s): [id number] Report Number: [id number] PROCEDURE INFORMATION: Exam: CT Head Without Contrast Exam date and time: 11/01/2020 8:46 PM Age: 25 years old Clinical indication: Condition or disease; Convulsions or seizures; Additional info: Seizure TECHNIQUE: Imaging protocol: Computed tomography of the head without contrast. Radiation optimization: All CT scans at this facility use at least one of these dose optimization techniques: automated exposure control; mA and/or kV adjustment per patient size (includes targeted exams where dose is matched to clinical indication); or iterative reconstruction. COMPARISON: CT orbit BI wo con* [id number] 02/17/2020 12:11 PM RADIATION DOSE METRICS: Total DLP (mGy-cm): 841.46 FINDINGS: Brain: The brain is unremarkable. There is no mass effect or significant white matter disease. There is no acute intracranial hemorrhage. Cerebral ventricles: There is no significant ventricular dilation. The basal cisterns are unremarkable. Paranasal sinuses: The paranasal sinuses are clear. Mastoid air cells: The mastoid air cells are clear. Bones/joints: The calvarium is intact. Soft tissues: The visible extracranial soft tissues are unremarkable. CT/CT head wo con* [id number] IMPRESSION: No acute findings. Radiation Dose CTDIVOL = (mGy): DLP = 841.46 (mGy-cm) Dictated By:Lloyd Carpenterigned By:Lloyd Carpenterigned Date/Time:11/01/202125DD/ 23 Discharge Plan Discharge Patient Disposition: Placed in Observation Admit Provider: Paris Soria Clinical Impression: KIMBERLY (acute kidney injury), Dehydration Condition: Stable Discharge Orders: Discharge Order (Routine); Ordered 11/02/20 Ordered By: Mitchel Byrd Discharge Diet: Regular Discharge Activity: Increase activity as tolerated Coding Level of Care Code ED Fishing Hand for Dalila Hennessy
[2020-11-02 02:28] VITALS: BP 133/72; O2SAT 98
[2020-11-02 02:44] LABS: Prolactin 54.74 ng/mL (4.0-15.2)
[2020-11-02 03:45] VITALS: BP 126/78; PULSE 79; RESP 17; O2SAT 99
[2020-11-02] MEDS: sodium chloride 0.9% 1,000 ML 100 ML IV (03:45)
[2020-11-02 05:13] VITALS: BP 128/58; PULSE 76; RESP 18; O2SAT 100
[2020-11-02 05:32] LABS: Anion Gap 15.7 (5-19); Blood Urea Nitrogen 12 mg/dL (6-20); Calcium 8.1 mg/dL (8.5-10.5); Carbon Dioxide 25 mmol/L (22-29); Chloride 104 mmol/L (98-107); Glomerular Filtration Rate 90.3 mL/min (90-130); Glucose 86 mg/dL (65-115); Magnesium 2.5 mg/dL (1.7-2.3); Osmolality Calculated 291 mOsm/kg (285-295); Potassium 3.7 mmol/L (3.5-5.1); Sodium 141 mmol/L (136-145)
--- NOTE | 2020-11-02 08:17 | P.DS_ITS ---
Discharge Providers Date of Admission: 11/02/20 03:03 Date of Discharge: November 02, 2020 Attending Provider at Admission: Paris Soria MD Attending Provider at Discharge: Mitchel Byrd MD Primary Care Provider: Aneta Pack MD Diagnoses at Discharge Discharge Diagnosis (1) Seizure: Status: Acute (2) Dehydration: Status: Acute (3) KIMBERLY (acute kidney injury): Status: Acute Reason for Visit Reason for Visit: SEIZURE Hospital Course Hospital Course Aaron is a 25 year old white male who presented to the emergency department with history of collapse, and possible seizure activity. He was found to be dehydrated with acute kidney injury. He had apparently had quite a bit of sleep deprivation prior to the event. During the shaking after the collapse he had bit his tongue but had no loss of bowel or bladder control. He was placed under observation, hydrated, and closely monitored. He had no further seizure episodes. Acidosis, renal failure, and dehydration reserved resolved overnight. He does report he drinks quite a bit of alcohol, a sixpack every night. He does believe he has a drinking problem and would like some literature on this prior to discharge. Patient cannot relate that he had any kind of postictal state to me. He will follow-up with his primary care provider. Admitting physician was very concerned this could have represented a seizure secondary to his elevated prolactin level, presentation, and biting his tongue and he will also follow-up with neurology. I discussed with the patient to stop alcohol and caffeine, increase hydration, and avoid sleep deprivation. Hepatitis screening was negative. I discussed with him the negative side effects of alcohol intake including increased LFTs, liver failure, etc. Physical Exam Narrative: EXAM NARRATIVE: General exam is no apparent distress Cardiovascular regular in rhythm without murmur Lungs clear Abdomen soft with positive bowel sounds Extremities no cyanosis clubbing or edema Neuro no obvious focal deficits, gait normal Discharge Data Data Completed and Pending: Completed Studies During Hospitalization Category Date Time Status CT head wo con* 7 0450 Urgent Cat Scan 11/01/20 20:46 Completed XR chest 2V* [id number] 6 Urgent Exams 11/01/20 20:48 Completed Pending at discharge Category Date Time Status Folate Level Rout ine Lab 11/02/20 08:11 Ordered Hepatitis Acute P alma Routine Lab 11/02/20 07:51 Ordered Vitamin B12 Routi ne Lab 11/02/20 08:11 Ordered Labs from last 24 hours 06/29/21 06/28/21 06/28/21 05:01 23:02 23:00 WBC RBC Hgb Hct MCV MCH MCHC RDW Plt Count MPV Neut % (Auto) Lymph % (Auto) [place] % (Auto) Eos % (Auto) Baso % (Auto) Neut # (Auto) Lymph # (Auto) [place] # (Auto) Eos # (Auto) Baso # (Auto) Nucleated RBC % (a uto) Nucleated RBCs # Specimen Type Arterial Sample Site Radial, right ABG pH 7.44 ABG pCO2 32.5 L ABG pO2 89.5 ABG HCO3 21.9 L ABG Base Excess -1.5 [place] Test Pos Hematocrit 45.5 O2 Delivery Device Room air Professor Of Languages ID ellpe Sodium 141 Potassium 3.7 Chloride 104 Carbon Dioxide 25 Anion Gap 15.7 BUN 12 Creatinine 1.0 GFR Calculation 90.3 Glucose 86 Calculated Osmolal ity 291 Lactic Acid 1.2 Calcium 8.1 L Magnesium 2.5 H Total Bilirubin AST ALT Alkaline Phosphata se Creatine Kinase C-Reactive Protein Total Protein Albumin Globulin TSH Prolactin Urine Color Urine Appearance Urine pH Ur Specific Gravit y Urine Protein Urine Glucose (UA) Urine Ketones Urine Blood Urine Nitrate Urine Bilirubin Urine Urobilinogen Ur Leukocyte [place] ase Urine RBC Urine WBC Ur Squamous Epith Cells Amorphous Sediment Urine Bacteria Hyaline Casts Urine Mucus Urine Opiates Scre en Ur Barbiturates Sc reen Ur Phencyclidine S crn Ur Amphetamines Sc reen U Benzodiazepines Scrn Urine Cocaine Scre en U Marijuana (THC) Screen Ethyl Alcohol Hepatitis A IgM Ab Hep Bs Antigen Hep B Core IgM Ab Hepatitis C Antibo dy 11/01/20 11/01/20 11/01/20 20:55 20:55 20:20 WBC RBC Hgb Hct MCV MCH MCHC RDW Plt Count MPV Neut % (Auto) Lymph % (Auto) [place] % (Auto) Eos % (Auto) Baso % (Auto) Neut # (Auto) Lymph # (Auto) [place] # (Auto) Eos # (Auto) Baso # (Auto) Nucleated RBC % (a uto) Nucleated RBCs # Specimen Type Sample Site ABG pH ABG pCO2 ABG pO2 ABG HCO3 ABG Base Excess [place] Test Hematocrit O2 Delivery Device Professor Of Languages ID Sodium Potassium Chloride Carbon Dioxide Anion Gap BUN Creatinine GFR Calculation Glucose Calculated Osmolal ity Lactic Acid Calcium Magnesium Total Bilirubin AST ALT Alkaline Phosphata se Creatine Kinase C-Reactive Protein Total Protein Albumin Globulin TSH Prolactin Urine Color Yellow Urine Appearance Clear Urine pH 5 Ur Specific Gravit y 1.020 Urine Protein 2+ H Urine Glucose (UA) Norm Urine Ketones 1+ H Urine Blood 3+ H Urine Nitrate Negative Urine Bilirubin Neg Urine Urobilinogen Norm Ur Leukocyte [place] ase Negative Urine RBC 0-4 H Urine WBC 0-4 H Ur Squamous Epith Cells 0-4 H Amorphous Sediment Not Reportable Urine Bacteria Trace Hyaline Casts 25-40 H Urine Mucus 1+ Urine Opiates Scre en Negative Ur Barbiturates Sc reen Negative Ur Phencyclidine S crn Negative Ur Amphetamines Sc reen Negative U Benzodiazepines Scrn Positive H Urine Cocaine Scre en Negative U Marijuana (THC) Screen Negative Ethyl Alcohol Hepatitis A IgM Ab Pending Hep Bs Antigen Pending Hep B Core IgM Ab Pending Hepatitis C Antibo dy Pending 11/01/20 11/01/20 11/01/20 20:20 20:20 20:20 WBC RBC Hgb Hct MCV MCH MCHC RDW Plt Count MPV Neut % (Auto) Lymph % (Auto) [place] % (Auto) Eos % (Auto) Baso % (Auto) Neut # (Auto) Lymph # (Auto) [place] # (Auto) Eos # (Auto) Baso # (Auto) Nucleated RBC % (a uto) Nucleated RBCs # Specimen Type Sample Site ABG pH ABG pCO2 ABG pO2 ABG HCO3 ABG Base Excess [place] Test Hematocrit O2 Delivery Device Professor Of Languages ID Sodium 139 Potassium 3.5 Chloride 91 L Carbon Dioxide 10 L Anion Gap 41.5 H BUN 12 Creatinine 1.8 H GFR Calculation 45.8 L Glucose 156 H Calculated Osmolal ity 291 Lactic Acid Calcium 9.7 Magnesium Total Bilirubin 0.8 AST 131 H ALT 98 H Alkaline Phosphata se 124 Creatine Kinase 403 H* C-Reactive Protein 3.5 Total Protein 8.8 H Albumin 5.3 H Globulin 3.5 TSH 3.58 Prolactin 54.74 H Urine Color Urine Appearance Urine pH Ur Specific Gravit y Urine Protein Urine Glucose (UA) Urine Ketones Urine Blood Urine Nitrate Urine Bilirubin Urine Urobilinogen Ur Leukocyte [place] ase Urine RBC Urine WBC Ur Squamous Epith Cells Amorphous Sediment Urine Bacteria Hyaline Casts Urine Mucus Urine Opiates Scre en Ur Barbiturates Sc reen Ur Phencyclidine S crn Ur Amphetamines Sc reen U Benzodiazepines Scrn Urine Cocaine Scre en U Marijuana (THC) Screen Ethyl Alcohol 25 H Hepatitis A IgM Ab Hep Bs Antigen Hep B Core IgM Ab Hepatitis C Antibo dy 11/01/20 20:20 WBC 10.7 H RBC 4.73 Hgb 16.6 Hct 50.3 MCV 106.3 H MCH 35.1 H MCHC 33.0 RDW 11.7 L Plt Count 243 MPV 11.0 H Neut % (Auto) 60.2 Lymph % (Auto) 26.4 [place] % (Auto) 10.8 Eos % (Auto) 0.8 Baso % (Auto) 0.9 Neut # (Auto) 6.41 Lymph # (Auto) 2.8 [place] # (Auto) 1.2 H Eos # (Auto) 0.1 Baso # (Auto) 0.1 Nucleated RBC % (a uto) 0 Nucleated RBCs # 0.0 Specimen Type Sample Site ABG pH ABG pCO2 ABG pO2 ABG HCO3 ABG Base Excess [place] Test Hematocrit O2 Delivery Device Professor Of Languages ID Sodium Potassium Chloride Carbon Dioxide Anion Gap BUN Creatinine GFR Calculation Glucose Calculated Osmolal ity Lactic Acid Calcium Magnesium Total Bilirubin AST ALT Alkaline Phosphata se Creatine Kinase C-Reactive Protein Total Protein Albumin Globulin TSH Prolactin Urine Color Urine Appearance Urine pH Ur Specific Gravit y Urine Protein Urine Glucose (UA) Urine Ketones Urine Blood Urine Nitrate Urine Bilirubin Urine Urobilinogen Ur Leukocyte [place] ase Urine RBC Urine WBC Ur Squamous Epith Cells Amorphous Sediment Urine Bacteria Hyaline Casts Urine Mucus Urine Opiates Scre en Ur Barbiturates Sc reen Ur Phencyclidine S crn Ur Amphetamines Sc reen U Benzodiazepines Scrn Urine Cocaine Scre en U Marijuana (THC) Screen Ethyl Alcohol Hepatitis A IgM Ab Hep Bs Antigen Hep B Core IgM Ab Hepatitis C Antibo dy Vitals: Last Vital Signs Temp 98.9 F 11/01/20 20:39 Pulse 76 11/02/20 05:13 Resp 18 11/02/20 05:13 BP 128/58 11/02/20 05:13 Pulse Ox 100 11/02/20 05:13 Discharge Plan Discharge Patient Disposition: Home Condition: Stable Prescriptions: Continued alprazolam 0.5 mg tablet 0.5 mg PO DAILY PRN (Reason: anxiety) 60 Days Qty: 60 RF: 2 Discharge Orders: Discharge Order (Routine); Ordered 11/02/20 Ordered By: Mitchel Byrd Referrals: Katerina Holman MD [Physician] - 2 weeks (History of seizure) Aneta Pack MD [Primary Care Provider] - 4-7 days Discharge Diet: Regular Discharge Activity: Increase activity as tolerated Patient Instructions: Opioid Safety Activity Restrictions/Additional Instructions: Encourage fluids. Keep follow up Alcohol rehabilitation resources to be given to the patient. Discharge Attestations Time Spent in Discharge Care*: greater than 30 min Quality Metrics Clinical Quality Measures During this hospital stay, did patient experience: None Coding Level of Care Code Acute Chg [facility] note Diagnoses Seizure R56.9 Dehydration E86.0 KIMBERLY (acute kidney injury) N17.9
[2020-11-02 08:18] VITALS: BP 134/91; PULSE 83; O2SAT 99
--- NOTE | 2020-11-02 08:18 | PC.NURSE ---
Pt walked 5 laps around room and to the restroom. Vital signs were taken upon return. Pt denies SOB or dizziness.
[2020-11-02 08:50] LABS: Hepatitis A Antibody IgM Non-Reactive (Nonreactive); Hepatitis B Core IgM Non-Reactive (Nonreactive); Hepatitis B Surface Antigen Non-Reactive (Nonreactive); Hepatitis C Virus Antibody Non-Reactive (Nonreactive)
[2020-11-02 09:22] LABS: Folate Level 8.3 ng/mL (4.5-32.2)
[2020-11-02 09:25] LABS: Vitamin B12 782 pg/mL (232-1245)
[2020-11-02 09:52] VITALS: BP 127/84; PULSE 62; RESP 18; O2SAT 98
[2020-11-02 09:55] VITALS: BP 124/82; PULSE 63; RESP 16; TEMP 36.9; O2SAT 98
--- NOTE | 2020-11-05 07:45 | PC.RESP ---
SMOKING CESSATION INFORMATION SENT TO PATIENT.
== END 2020-11-02 09:58 | disposition home or self-care (01) ==
LOC: ER 21:43 → ER IP 11-02 07:10 → MEDSURG 11-02 09:32 → ER IP 11-02 09:46
PROVIDERS: Admitting Provider Internal Medicine; Emergency Provider Family Medicine; PCP Family Medicine; Visit Provider Internal Medicine
DX: R56.9 Unspecified convulsions (principal); E86.0 Dehydration; N17.9 Acute kidney failure, unspecified; F17.220 Nicotine dependence, chewing tobacco, uncomplicated; Z82.49 Family history of ischemic heart disease and other diseases of the circulatory system
CPT/HCPCS: 70450; 71046; 80048; 80053; 80074; 80306; 80307; 81001; 82550; 82607; 82746; 82803; 83605; 83735; 84146; 84443; 85025; 86140; 96360; 99285; G0378; J7030

== ENCOUNTER → 2020-11-10 09:44 | Outpatient (BNVA) | payer SELFPAY | PROVIDERS: PCP Family Medicine; Visit Provider Family Medicine | DX: I10 Essential (primary) hypertension (principal); F10.982 Alcohol use, unspecified with alcohol-induced sleep disorder; F41.9 Anxiety disorder, unspecified | CPT/HCPCS: 80053 ==

== ENCOUNTER 2021-01-31 21:31 | Emergency (ER) | payer MEDICAID, SELFPAY ==
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
[2021-01-31 21:41] VITALS: BP 128/86; PULSE 98; RESP 18; TEMP 37.1; O2SAT 93; BMI 25.1
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
[2021-01-31 23:17] LABS: Basophils # 0.1 10^3/uL (0.0-0.1); Eosinophils % 0.5 %; Hematocrit 47.7 % (42.0-52.0); Hemoglobin 16.3 g/dL (11.7-16.6); Lymphocytes # 1.8 10^3/uL (0.8-4.8); Lymphocytes % 28.5 %; Mean Corpuscular HGB Conc 34.2 g/dL (30.0-36.0); Mean Corpuscular Volume 102.4 fl (80-94); Mean Platelet Volume 9.7 fL (7.4-10.4); Monocytes # 0.7 10^3/uL (0.2-0.9); Monocytes % 10.9 %; Neutrophils # 3.69 10^3/uL (1.8-7.7); Neutrophils % 58.9 %; Nucleated Red Blood Cells % 0 %; Platelet Count 193 10^3/cmm (130-400); Red Blood Count 4.66 10^6/uL (4.1-5.3); Red Cell Distribution Width 11.4 % (12.1-15.1); White Blood Count 6.3 10^3/uL (4.0-10.0)
[2021-01-31] MEDS: haloperidol inj 5 mg/mL INJ 1 mL IVP (23:41)
[2021-01-31] MEDS: nicotine 21 mg Patch 1 PATCH TRANSDERMA (23:41)
[2021-01-31] MEDS: LORazepam 2 mg/mL INJ 1 mL IVP (23:41)
[2021-01-31 23:43] LABS: Alanine Aminotransferase 166 U/L (0-41); Albumin Level 4.4 g/dL (3.5-5.2); Alkaline Phosphatase 81 IU/L (40-130); Anion Gap 17.1 (5-19); Aspartate Amino Transferase 176 U/L (0-40); Blood Urea Nitrogen 6 mg/dL (6-20); Calcium 9.3 mg/dL (8.5-10.5); Carbon Dioxide 27 mmol/L (22-29); Chloride 102 mmol/L (98-107); Globulin 3.7 g/dL (1.3-4.6); Glomerular Filtration Rate 136.3 mL/min (90-130); Glucose 96 mg/dL (65-115); Osmolality Calculated 291 mOsm/kg (285-295); Potassium 4.1 mmol/L (3.5-5.1); Sodium 142 mmol/L (136-145); Thyroid Stimulating Hormone 0.89 uIU/mL (0.27-4.20); Total Bilirubin 0.3 mg/dL (0.15-1.2); Total Protein 8.1 g/dL (6.6-8.7)
[2021-01-31 23:44] LABS: Acetaminophen < 5.0 ug/mL (10-30); Salicylate < 0.3 mg/dL (3-10)
[2021-01-31 23:45] LABS: Alcohol Level 344 mg/dL (0-10)
[2021-02-01 00:11] VITALS: BP 132/78; PULSE 99; RESP 18; O2SAT 98
[2021-02-01 00:20] VITALS: PULSE 101; RESP 19
[2021-02-01 00:32] LABS: SARS Covid-2 Antigen Negative (Negative)
[2021-02-01 00:59] VITALS: BP 129/74; PULSE 107; RESP 18; O2SAT 94
[2021-02-01] MEDS: haloperidol inj 5 mg/mL INJ 1 mL IVP (02:11)
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
[2021-02-01 02:19] VITALS: PULSE 122; RESP 22; O2SAT 98
== END 2021-02-01 02:21 ==
LOC: ER 22:49
PROVIDERS: Emergency Provider Nurse Practitioner Family; PCP Family Medicine
DX: R45.851 Suicidal ideations (principal); F17.210 Nicotine dependence, cigarettes, uncomplicated; Z20.822 Contact with and (suspected) exposure to COVID-19
CPT/HCPCS: 70450; 72125; 80053; 80307; 84443; 85025; 87426; 96374; 96375; 96376; 99285; J1630; J2060

== ENCOUNTER 2021-03-23 00:55 | Emergency (ER) | payer MEDICAID, SELFPAY ==
--- NOTE | 2021-03-23 00:56 | ECG_ITS ---
[facility] Test Date: 2021-03-23 Pat Name: Aaron Bermeo Department: Room: Gender: Male Business Support Coordinator: : 1995 Requested By: Meliton Chavira Order Number: [id number] Bravo MD: Jaylyn Hirsch M.D. Measurements Intervals [place] Rate: 79 P: 67 AK: 149 QRS: 60 QRSD: 85 T: 42 QT: 374 QTc: 431 Interpretive Statements SINUS RHYTHM No previous ECG available for comparison Electronically Signed On 03-23-2021 22:49:30 [employer]ATION [employer] by Jaylyn Hirsch M.D. [id number]
[2021-03-23 01:05] VITALS: BP 166/106; PULSE 93; RESP 18; TEMP 36.7; O2SAT 99; BMI 23.6
--- NOTE | 2021-03-23 01:07 | CTR_ITS ---
PROCEDURE INFORMATION: Exam: CT Head Without Contrast Exam date and time: 03/23/2021 1:07 AM Age: 26 years old Clinical indication: Patient HX: Seizure activity. Repeated due to motion. Best exam submitted. TECHNIQUE: Imaging protocol: Computed tomography of the head without contrast. Radiation optimization: All CT scans at this facility use at least one of these dose optimization techniques: automated exposure control; mA and/or kV adjustment per patient size (includes targeted exams where dose is matched to clinical indication); or iterative reconstruction. COMPARISON: CT head wo con* [id number] 01/31/2021 10:25 PM RADIATION DOSE METRICS: Total DLP (mGy-cm): 1013.03 FINDINGS: Brain: Normal. No hemorrhage. Unremarkable white matter. No mass effect. Cerebral ventricles: No ventriculomegaly. Paranasal sinuses: Visualized sinuses are unremarkable. No fluid levels. Mastoid air cells: Visualized mastoid air cells are well aerated. Bones/joints: Unremarkable. No acute fracture. Soft tissues: Unremarkable. Other findings: Examination is limited secondary to motion artifact. CT/CT head wo con* [id number] IMPRESSION: No acute intracranial findings. Radiation Dose CTDIVOL = (mGy): DLP = 1013.03 (mGy-cm)
--- NOTE | 2021-03-23 01:08 | W.ED.GENADLT ---
HPI - General Adult General: Chief complaint: Seizure Stated complaint: seizures Time Seen by Provider: 03/23/21 00:56 History of Present Illness: HPI narrative: HPI: [26]yo patient w/ hx of seizures on aprazolam (last medication taking was over 3 weeks ago) BIBA to the ED with breakthrough episode of the seizure witnessed by family at home. Patient hit his head after he had an episode of tonic clonic seizure 45 minute sago. En route, the patient was posticteral. HDS without any signs of focal neurological deficits. On arrival, the patient is AAOx3, GCS of 15 and answering all questions. The patient denies any associated chest pain, shortness of breath, palpitations, or any focal pain in the arms and legs. Last time breakthrough seizure occurred 4 months ago. Patient has yet to establish care up with Dr. Holman. Has seizure independently of alchol use. Onset: 45 minutes ago Duration: x1 episode Location: home Severity: moderate Review of Systems Narrative: Constitutional: No fever, no chills. HEENT: No vision changes CV: No chest pain, no palpitations PULM: No productive cough, no dyspnea. GI: No abdominal pain, no N/V/D. : No Dysuria MSKEL: No muscle pain SKIN: No new rashes, no lesions. NEURO: No headache, no focal weakness. + 1 episode of seizure HEME: No visible bruises PSYCH: Normal mood PFSH ED PFSH: Medical History Anxiety Insomnia Seizure Surgical History No pertinent past surgical history Family History Other CAD (coronary artery disease) Cancer Social History Smoking and tobacco status: current some day smoker smokeless tobacco Alcohol intake: current Alcohol intake frequency: holidays/special occasions only Housing: House Physical Exam Narrative: EXAM NARRATIVE: Head: Atraumatic Eyes: PERRL, conjunctiva without injection, eyes tracking ENT: Mucous membrane moist NECK: Supple without lymphadenopathy LUNGS: LCTAB CV: RRR ABDOMEN: Soft, nontender in all quadrants, no guarding or rebound tenderness, no CVA or flank tenderness bilaterally EXTREMITY: Normal ROM SKIN: No rash or erythema NEURO: CN II-XII tested and intact. Sensation intact to sharp/dull differentiation in all extremities. Motor: Normal tone and bulk. No abnormal movements appreciated. No pronator drift. Strength tested and 5/5 in bilateral wrist flexion/extension, elbow flexion/extension, shoulder abduction, straight leg raise, knee flexion/extension, ankle dorsiflexion/plantarflexion. Patient ambulates with a steady gait. Coordination: Finger to nose and heel to [place] testing intact bilaterally. Reflexes intact in the ankles, knees, and elbows bilaterally PSYCH: Cooperative mood and affect Course Vital Signs: Vital signs: Vital Signs Temperature 98.1 F 03/23/21 01:05 Pulse Rate 145 H 03/23/21 03:31 Respiratory Rate 18 03/23/21 01:05 Blood Pressure 166/106 03/23/21 01:05 Pulse Oximetry 93 03/23/21 03:31 MDM - General Adult MDM Narrative: Medical decision making narrative: [26]yo patient w/ known hx of seizure previously on aprazalm BIBA after an episode of seizure with unknown duration which occurred 45 minutes ago. Back to baseline on arrival, AAOX3 with non-focal neuro exam. HDS. Exam revealed no focal trauma/deformity/bruises.The episode of seizure was witnessed and without any trauma/injury to the head. No immunosuppression hx and without preceding fever. No history of alcohol abuse or suspicion for toxin ingestion. Hx of prior seizure likely breakthrough seizure in the setting of medication change/non-compliance. H No lips/tongue lacerations. No visible bowel/bladder incontinence Airway protected. No drooling. Sats > 95%. Unlikely to be stroke, neurogenic syncope, acute delirium, intracranial tumor/mass, intracranial bleed, SAH/subdural hematoma/epidural hematoma, meningitis, or intracranial abscess, or from alcohol withdrawal. Workup: CBC, BMP, Magnesium, EKG, CT brain ED Interventions: 1g of keppra, IVF, po challenge EKG: No e/o STEMI. No evidence of Brugada?s sign, delta wave, epsilon wave, significantly prolonged QTc, or malignant arrhythmia. Lab findings: Electrolytes including K and Mg wnl. [1:11pm] On reassessment, patient back to baseline. In the ED, the patient received 1g of keppra in the ED. No other witnessed episodes of seizure while the patient was observed in the ED. Repeat neuro exam is non-focal. Patient tolerated PO in the ED and was able to ambulate without difficulties. 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 Rx keppra 500mg BID x 2 weeks for seizure Disposition: Discharge. Patient is given instruction for follow-up with PCP and Neurology in the next 24-48 hours. Given seizure precautions including no driving, swimming, or bathing until the patient is fully evaluated by specialists. Lab Data: Labs: Lab Results 03/23/21 03/23/21 03/23/21 01:05 01:05 01:05 WBC 3.4 10^3/uL L 10^ 3/uL (4.0-10.0) RBC 3.98 10^6/uL L 10 ^6/uL (4.1-5.3) Hgb 13.8 g/dL g/dL (11.7-16.6) Hct 38.5 % L % (42.0-52.0) MCV 96.7 fl H fl (80-94) MCH 34.7 pg H pg (28.0-34.0) MCHC 35.8 g/dL g/dL (30.0-36.0) RDW 11.5 % L % (12.1-15.1) Plt Count 104 10^3/cmm L 10 ^3/cmm (130-400) MPV 9.8 fL fL (7.4-10.4) Neut % (Auto) 78.4 % % Lymph % (Auto) 8.3 % % [place] % (Auto) 10.6 % % Eos % (Auto) 0.0 % % Baso % (Auto) 1.2 % % Neut # (Auto) 2.66 10^3/uL 10^3 /uL (1.8-7.7) Lymph # (Auto) 0.3 10^3/uL L 10^ 3/uL (0.8-4.8) [place] # (Auto) 0.4 10^3/uL 10^3/ uL (0.2-0.9) Eos # (Auto) 0.0 10^3/uL 10^3/ uL (0.0-0.8) Baso # (Auto) 0.0 10^3/uL 10^3/ uL (0.0-0.1) Nucleated RBC % (a uto) 0 % % Nucleated RBCs # 0.0 /100WBC /100W BC Sodium 132 mmol/L L mmol /L (136-145) Potassium 3.8 mmol/L mmol/L (3.5-5.1) Chloride 85 mmol/L L mmol/ L (98-107) Carbon Dioxide 15 mmol/L L mmol/ L (22-29) Anion Gap 35.8 H (5-19) BUN 9 mg/dL mg/dL (6-20) Creatinine 0.9 mg/dL mg/dL (0.7-1.2) GFR Calculation 101.2 mL/min mL/m in (90-130) Glucose 125 mg/dL H mg/dL (65-115) Calculated Osmolal ity 274 mOsm/kg L mOs m/kg (285-295) Calcium 8.4 mg/dL L mg/dL (8.5-10.5) Magnesium 2.6 mg/dL H mg/dL (1.7-2.3) Total Bilirubin 1.1 mg/dL mg/dL (0.15-1.2) AST 359 U/L H U/L (0-40) ALT 352 U/L H U/L (0-41) Alkaline Phosphata se 68 IU/L IU/L (40-130) Total Protein 7.2 g/dL g/dL (6.6-8.7) Albumin 4.5 g/dL g/dL (3.5-5.2) Globulin 2.7 g/dL g/dL (1.3-4.6) Lipase 532 U/L H U/L (13-60) Discharge Plan Discharge Patient Disposition: Home Clinical Impression: Seizure Condition: Stable Prescriptions: New Keppra 500 mg tablet 500 mg PO BID 14 Days Qty: 28 RF: 0 No Action citalopram 20 mg tablet 20 mg PO DAILY Qty: 30 RF: 0 metronidazole 500 mg tablet 500 mg PO DAILY Qty: 30 RF: 1 alprazolam 1 mg tablet 1 mg PO DAILY PRN (Reason: sleep) Qty: 60 RF: 2 Discharge Orders: Discharge ED (Routine); Ordered 03/23/21 Ordered By: Meliton Chavira Referrals: Aneta Pack MD [Primary Care Provider] - Discharge Diet: Advance as tolerated Discharge Activity: Resume usual activity Patient Instructions: Seizures Activity Restrictions/Additional Instructions: Follow-up with our neurologist Dr. Holman. Our rn case management will schedule for an appointment in the next few days. Please take your medicine as instructed. Avoid swimming, driving, bathing on your own at this time as you had breakthrough seizures. Coding Level of Care Code ED Manufacturing Manager for Dalila Hennessy
[2021-03-23 01:14] LABS: Basophils % 1.2 %; Hematocrit 38.5 % (42.0-52.0); Hemoglobin 13.8 g/dL (11.7-16.6); Lymphocytes # 0.3 10^3/uL (0.8-4.8); Lymphocytes % 8.3 %; Mean Corpuscular HGB Conc 35.8 g/dL (30.0-36.0); Mean Corpuscular Hemoglobin 34.7 pg (28.0-34.0); Mean Corpuscular Volume 96.7 fl (80-94); Mean Platelet Volume 9.8 fL (7.4-10.4); Monocytes # 0.4 10^3/uL (0.2-0.9); Monocytes % 10.6 %; Neutrophils # 2.66 10^3/uL (1.8-7.7); Neutrophils % 78.4 %; Nucleated Red Blood Cells % 0 %; Platelet Count 104 10^3/cmm (130-400); Red Blood Count 3.98 10^6/uL (4.1-5.3); Red Cell Distribution Width 11.5 % (12.1-15.1); White Blood Count 3.4 10^3/uL (4.0-10.0)
[2021-03-23 01:31] LABS: Magnesium 2.6 mg/dL (1.7-2.3)
[2021-03-23] MEDS: sodium chloride 0.9% 1,000 ML 999 ML IV (01:31)
[2021-03-23 01:34] LABS: Alanine Aminotransferase 352 U/L (0-41); Albumin Level 4.5 g/dL (3.5-5.2); Alkaline Phosphatase 68 IU/L (40-130); Anion Gap 35.8 (5-19); Aspartate Amino Transferase 359 U/L (0-40); Blood Urea Nitrogen 9 mg/dL (6-20); Calcium 8.4 mg/dL (8.5-10.5); Carbon Dioxide 15 mmol/L (22-29); Chloride 85 mmol/L (98-107); Globulin 2.7 g/dL (1.3-4.6); Glomerular Filtration Rate 101.2 mL/min (90-130); Glucose 125 mg/dL (65-115); Osmolality Calculated 274 mOsm/kg (285-295); Potassium 3.8 mmol/L (3.5-5.1); Sodium 132 mmol/L (136-145); Total Bilirubin 1.1 mg/dL (0.15-1.2); Total Protein 7.2 g/dL (6.6-8.7)
[2021-03-23 01:44] LABS: Lipase 532 U/L (13-60)
[2021-03-23 03:31] VITALS: PULSE 145; O2SAT 93
== END 2021-03-23 03:33 | disposition home or self-care (01) ==
PROVIDERS: Emergency Provider Emergency Medicine; PCP Family Medicine
DX: R56.9 Unspecified convulsions (principal); F17.210 Nicotine dependence, cigarettes, uncomplicated
CPT/HCPCS: 70450; 80053; 83690; 83735; 85025; 93005; 96361; 96374; 99283; J1953; J7030

== ENCOUNTER 2021-04-07 18:55 | Emergency (ER) | payer MEDICAID, SELFPAY ==
[2021-04-07 19:16] VITALS: BP 142/98; PULSE 100; RESP 18; TEMP 36.9; O2SAT 96; BMI 19.9
--- NOTE | 2021-04-07 19:16 | ED_ITS ---
HPI - Alcohol General: Chief Complaint: Back Pain/Injury Stated Complaint: Psychiatric Symptoms Time Seen by Provider: 04/07/21 19:03 Source: patient Mode of arrival: ambulatory Limitations: no limitations History of Present Illness: HPI narrative: 26-year-old male who has a history of alcoholism is brought up by family due to his alcoholism family states that he has been drinking heavily and has depression they would like him to get detox. Patient here adamantly denies wanting any treatment he states he would just like to go he denies any suicide or homicide states that he knows he drinks too much but does not want to stop. Denies any worsening proving factors. Associated symptoms: Deny abdominal pain, depression, nausea or vomiting Review of Systems Const: Denies: fever(s), chills, body aches or change in appetite Eyes: Denies: blurry vision or eye discomfort ENMT: Denies: throat pain or dental pain Card: Reports: chest pain Resp: Denies: dyspnea GI: Denies: abdominal pain, nausea, vomiting or diarrhea : Denies: dysuria Musc: Denies: neck pain or back pain Skin/Breast: Denies: rash Neuro: Denies: headache(s) Psych: Denies: depression [place]/Lymph: Denies: easy bruising All/Imm: Denies: urticaria PFSH ED PFSH: Medical History Anxiety Compression fracture of vertebra Depression Insomnia Seizure Surgical History No pertinent past surgical history Family History Other CAD (coronary artery disease) Cancer Social History Smoking and tobacco status: current some day smoker smokeless tobacco Alcohol intake: current Alcohol intake frequency: holidays/special occasions only Housing: House Physical Exam Const: COMMON NORMALS: no acute distress, patient oriented x3 and healthy appearing OTHER: intoxicated HENMT: COMMON NORMALS: normocephalic and atraumatic HEAD & SCALP: normocephalic and atraumatic Eye: COMMON NORMALS: Equal, round and reactive pupils present and EOMs intact bilaterally PUPIL: Yes Equal, round and reactive pupils present Neck/C-Spine: COMMON NORMALS: full ROM and supple Chest: COMMONS NORMALS: normal inspection of the chest and normal palpation of entire chest wall Resp: COMMON NORMALS: normal respiratory effort, No retractions, No use of accessory muscles and clear to auscultation bilaterally AUSCULTATION: clear to auscultation bilaterally Cardio: COMMON NORMALS: regular rate, regular rhythm and No murmurs present (Cardio) RATE: regular rate RHYTHM: regular rhythm GI: COMMON NORMALS: Normal to inspection, nondistended, normoactive bowel sounds present, Soft to palpation, non-tender and no masses PALPATION: Yes Soft to palpation Extremity: COMMON NORMALS: normal to inspection and full ROM Neuro: COMMON NORMALS: patient oriented x3, moves all extremities and no focal motor deficits Psych: COMMON NORMALS: mental status grossly normal, Normal thought process present and cooperative THOUGHT PROCESS: Normal thought process present Skin: COMMON NORMALS: no rashes or lesions noted and no wounds GENERAL SKIN EXAM: no rashes or lesions noted Course Vital Signs: Vital signs: Vital Signs Temperature 98.4 F 04/07/21 19:16 Pulse Rate 104 H 04/07/21 19:52 Respiratory Rate 18 04/07/21 20:31 Blood Pressure 138/102 04/07/21 19:52 Pulse Oximetry 96 04/07/21 19:52 MDM - Alcohol MDM Narrative: Medical decision making narrative: Patient presents here with alcohol intoxication he adamantly denies any SI or HI I had him evaluated by psychiatrist Dr. Bingham as well who agrees that he is not a threat to himself or others patient is refused any blood draws or any treatment he is able to ambulate answer my questions appropriately does have medical decision-making capacity patient is discharged at this time. Discharge Plan Discharge Patient Disposition: Home Clinical Impression: Alcohol intoxication Qualifiers: Complication of substance-induced condition: uncomplicated Qualified Code(s): F10.920 - Alcohol use, unspecified with intoxication, uncomplicated Condition: Stable Prescriptions: No Action alprazolam 1 mg tablet 1 mg PO BID PRN (Reason: sleep) Qty: 60 RF: 2 Discharge Orders: Discharge ED (Routine); Ordered 04/07/21 Ordered By: Moises Calix Referrals: Aneta Pack MD [Primary Care Provider] - 1-3 days Discharge Diet: Advance as tolerated Discharge Activity: Resume usual activity Patient Instructions: Alcohol Intoxication (ED) Coding Level of Care Code ED Electronic Equipment Installer for Dalila Fwd Exam Comprehensive
[2021-04-07 19:52] VITALS: BP 138/102; PULSE 104; RESP 17; O2SAT 96
--- NOTE | 2021-04-07 20:18 | PC.NURSE ---
Patient refusal. Patient refused Lab for blood draw and refused order IM injection. Patient found outside of room at 20:10 wanting to leave. ED physician spoke with patient to return to room to speak with [facility].
[2021-04-07 20:31] VITALS: RESP 18
== END 2021-04-07 20:35 | disposition home or self-care (01) ==
PROVIDERS: Emergency Provider Emergency Medicine; PCP Family Medicine
DX: F10.920 Alcohol use, unspecified with intoxication, uncomplicated (principal); F17.210 Nicotine dependence, cigarettes, uncomplicated
CPT/HCPCS: 99281; Q3014

== ENCOUNTER 2021-04-18 23:23 | Emergency (ER) | payer MEDICAID, SELFPAY ==
[2021-04-18 23:40] VITALS: BP 137/103; PULSE 90; RESP 18; TEMP 36.2; O2SAT 98; BMI 24.3
--- NOTE | 2021-04-18 23:43 | XRR_ITS ---
PROCEDURE INFORMATION: Exam: XR Chest Exam date and time: 04/18/2021 11:43 PM Age: 26 years old Clinical indication: Pain; Left-sided TECHNIQUE: Imaging protocol: XR of the chest. Views: 1 view. COMPARISON: CR XR chest 2V* [id number] 11/01/2020 9:10 PM FINDINGS: Lungs: Unremarkable. No consolidation. Pleural spaces: Unremarkable. No pleural effusion. No pneumothorax. Heart/Mediastinum: Unremarkable. No cardiomegaly. Bones/joints: Unremarkable. XR/XR chest 1V portable [id number] IMPRESSION: No acute finding.
--- NOTE | 2021-04-19 00:22 | ED_ITS ---
HPI - General Adult General: Chief complaint: General Medical Stated complaint: Left Rib Pain Time Seen by Provider: 04/18/21 23:35 Source: patient Mode of arrival: ambulatory Limitations: no limitations History of Present Illness: HPI narrative: 26-year-old male who states has been having chest pain since he fractured his ribs a month ago. He denies any shortness of breath states pain sharp nature rates it a 4 out of 10 denies any worst improving factors. Denies any vomiting or diarrhea. Denies fever. Associated symptoms: Reports chest pain; Deny dyspnea, headache(s), nausea, rash or vomiting Review of Systems Const: Denies: fever(s), chills, body aches or change in appetite Eyes: Denies: blurry vision or eye discomfort ENMT: Denies: throat pain or dental pain Card: Reports: chest pain Resp: Denies: dyspnea GI: Denies: abdominal pain, nausea, vomiting or diarrhea : Denies: dysuria Musc: Denies: neck pain or back pain Skin/Breast: Denies: rash Neuro: Denies: headache(s) Psych: Denies: depression [place]/Lymph: Denies: easy bruising All/Imm: Denies: urticaria PFSH ED PFSH: Medical History Anxiety Compression fracture of vertebra Depression Insomnia Seizure Surgical History No pertinent past surgical history Family History Other CAD (coronary artery disease) Cancer Social History Smoking and tobacco status: current some day smoker smokeless tobacco Alcohol intake: current Alcohol intake frequency: holidays/special occasions only Housing: House Physical Exam Const: COMMON NORMALS: no acute distress, patient oriented x3 and healthy appearing HENMT: COMMON NORMALS: normocephalic and atraumatic HEAD & SCALP: normocephalic and atraumatic Eye: COMMON NORMALS: Equal, round and reactive pupils present and EOMs intact bilaterally PUPIL: Yes Equal, round and reactive pupils present Neck/C-Spine: COMMON NORMALS: full ROM and supple Chest: COMMONS NORMALS: normal inspection of the chest OTHER: Slight tend erness to left chest Resp: COMMON NORMALS: normal respiratory effort, No retractions, No use of accessory muscles and clear to auscultation bilaterally AUSCULTATION: clear to auscultation bilaterally Cardio: COMMON NORMALS: regular rate, regular rhythm and No murmurs present (Cardio) RATE: regular rate RHYTHM: regular rhythm GI: COMMON NORMALS: Normal to inspection, nondistended, normoactive bowel sounds present, Soft to palpation, non-tender and no masses PALPATION: Yes Soft to palpation Extremity: COMMON NORMALS: normal to inspection and full ROM Neuro: COMMON NORMALS: patient oriented x3, moves all extremities and no focal motor deficits Psych: COMMON NORMALS: mental status grossly normal, Normal thought process present and cooperative THOUGHT PROCESS: Normal thought process present Skin: COMMON NORMALS: no rashes or lesions noted and no wounds GENERAL SKIN EXAM: no rashes or lesions noted Course Vital Signs: Vital signs: Vital Signs Temperature 97.2 F L 04/18/21 23:40 Pulse Rate 90 04/18/21 23:40 Respiratory Rate 18 04/18/21 23:40 Blood Pressure 137/103 04/18/21 23:40 Pulse Oximetry 98 04/18/21 23:40 MDM - General Adult MDM Narrative: Medical decision making narrative: Patient presents here with chest wall pain has been chronic since he had rib fractures a month ago x-ray shows no acute findings patient given pain meds a stable for discharge return if worsening. Imaging Data^: CXR: Attestation: I personally reviewed and interpreted this imaging study as follows: My impression: No acute abnormality Discharge Plan Discharge Patient Disposition: Home Clinical Impression: Chest wall pain Condition: Stable Prescriptions: New Naprosyn 500 mg tablet 500 mg PO BID PRN (Reason: pain) Qty: 20 RF: 0 No Action alprazolam 1 mg tablet 1 mg PO BID PRN (Reason: sleep) Qty: 60 RF: 2 meloxicam 15 mg tablet 15 mg PO DAILY Qty: 14 RF: 0 Discharge Orders: Discharge ED (Routine); Ordered 04/19/21 Ordered By: Moises Calix Referrals: Aneta Pack MD [Primary Care Provider] - 1-3 days Discharge Diet: Advance as tolerated Discharge Activity: Resume usual activity Patient Instructions: Chest Wall Pain (ED) Coding Level of Care Code ED Formula Technician for Dalila Hennessy
[2021-04-19] MEDS: HYDROcodone-acetaminophen 5-325 mg Tablet 1 TAB PO (00:29)
[2021-04-19 00:38] VITALS: RESP 16
== END 2021-04-19 00:38 | disposition home or self-care (01) ==
PROVIDERS: Emergency Provider Emergency Medicine; PCP Family Medicine
DX: R07.89 Other chest pain (principal); F17.210 Nicotine dependence, cigarettes, uncomplicated
CPT/HCPCS: 71045; 99283

== ENCOUNTER 2021-04-27 09:44 | Inpatient (IN) | payer MEDICAID, SELFPAY ==
[2021-04-27 09:46] VITALS: BP 138/86; PULSE 96; RESP 20; TEMP 36.7; O2SAT 99; BMI 25.8
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
[2021-04-27 10:37] LABS: Basophils # 0.1 10^3/uL (0.0-0.1); Basophils % 1.5 %; Eosinophils # 0.1 10^3/uL (0.0-0.8); Eosinophils % 1.6 %; Hematocrit 37.1 % (42.0-52.0); Hemoglobin 12.6 g/dL (11.7-16.6); Lymphocytes # 1.3 10^3/uL (0.8-4.8); Lymphocytes % 17.8 %; Mean Corpuscular Hemoglobin 35.2 pg (28.0-34.0); Mean Corpuscular Volume 103.6 fl (80-94); Mean Platelet Volume 9.8 fL (7.4-10.4); Monocytes % 12.8 %; Neutrophils # 4.91 10^3/uL (1.8-7.7); Nucleated Red Blood Cells % 0 %; Platelet Count 256 10^3/cmm (130-400); Red Blood Count 3.58 10^6/uL (4.1-5.3); Red Cell Distribution Width 13.5 % (12.1-15.1); White Blood Count 7.4 10^3/uL (4.0-10.0)
--- NOTE | 2021-04-27 10:44 | PC.PHAR ---
pt unable to verify medications-medications entered are what the pharmacy has filled recently
[2021-04-27 10:57] LABS: Alanine Aminotransferase 43 U/L (0-41); Albumin Level 4.8 g/dL (3.5-5.2); Alkaline Phosphatase 73 IU/L (40-130); Anion Gap 30.3 (5-19); Aspartate Amino Transferase 59 U/L (0-40); Blood Urea Nitrogen 13 mg/dL (6-20); Calcium 9.1 mg/dL (8.5-10.5); Carbon Dioxide 17 mmol/L (22-29); Chloride 94 mmol/L (98-107); Glomerular Filtration Rate 72.6 mL/min (90-130); Glucose 71 mg/dL (65-115); Osmolality Calculated 285 mOsm/kg (285-295); Potassium 3.3 mmol/L (3.5-5.1); Sodium 138 mmol/L (136-145); Total Protein 7.8 g/dL (6.6-8.7)
[2021-04-27 10:59] LABS: Salicylate < 0.3 mg/dL (3-10)
[2021-04-27] MEDS: OLANZapine 5 mg TABLET PO (10:59)
[2021-04-27 11:00] LABS: Acetaminophen < 5.0 ug/mL (10-30)
[2021-04-27 11:12] LABS: Amphetamines Screen Urine Positive (Negative); Barbiturates Screen Urine Negative (Negative); Benzodiazepines Screen Urine Positive (Negative); Cocaine Screen Urine Negative (Negative); Opiate Screen Urine Negative (Negative); PCP Screen Urine Negative (Negative); THC Screen Urine Negative (Negative)
[2021-04-27] MEDS: LORazepam 2 mg/mL INJ 1 mL IM (12:33)
[2021-04-27] MEDS: ziprasidone 20 mg/mL SDV 10 MG IM (12:33)
[2021-04-27 13:45] VITALS: BP 138/86; PULSE 96; RESP 20; TEMP 36.7; O2SAT 99
[2021-04-27 20:17] VITALS: BP 115/68; PULSE 87; RESP 19; O2SAT 97
[2021-04-27] MEDS: trazodone 50 mg Tablet PO (21:27)
[2021-04-27] MEDS: levETIRAcetam 500 mg Tablet PO (21:27)
[2021-04-27] MEDS: hyDROXYzine 25 mg Capsule 50 MG PO (21:27)
[2021-04-27] MEDS: naproxen 500 mg Tablet PO (21:27)
--- NOTE | 2021-04-27 21:30 | PC.NURSE ---
Pt at nurse's station and c/o pain in his left foot, and anxiety. Pt reports he normally takes oxy/hydrocodeine. Pt given vistaril 50 mg and alprazolam 1 mg PO for increased anxiety. Trazadone 50mg PO given to help pt sleep. Naproxen 500 mg PO given to pt for pain.
[2021-04-27 22:00] VITALS: BP 115/68; PULSE 87; RESP 19; TEMP 36.7; O2SAT 97
[2021-04-28 06:00] VITALS: BP 116/68; PULSE 74; RESP 15; O2SAT 99
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
[2021-04-28] MEDS: naproxen 500 mg Tablet PO ×2 (09:07→20:31)
[2021-04-28] MEDS: levETIRAcetam 500 mg Tablet PO ×2 (09:07→20:21)
[2021-04-28] MEDS: folic acid 1 mg Tablet PO (09:09)
[2021-04-28] MEDS: multivitamin therapeutic Tablet 1 TAB PO (09:09)
[2021-04-28] MEDS: thiamine 100 mg Tablet PO (09:09)
[2021-04-28] MEDS: sertraline 50 mg Tablet PO (09:09)
[2021-04-28] MEDS: nicotine 2 mg Gum BUCCAL ×5 (10:53→20:31)
--- NOTE | 2021-04-28 12:59 | NPU.GN ---
[facility] NeuroPsych Unit Group Topic:Darya Activities General Mood of Group Aaron did not attend or participate in group today he was sleeping. Aaron did meet with this writer producer and was aided by this writer producer to complete the [facility] new patient packet.
[2021-04-28 14:00] VITALS: BP 108/66; PULSE 60; RESP 18; TEMP 36.7; O2SAT 99
[2021-04-28] MEDS: hyDROXYzine 25 mg Capsule 50 MG PO (20:21)
[2021-04-28] MEDS: trazodone 50 mg Tablet PO (20:21)
[2021-04-28 20:30] LABS: Adenovirus Not Detected (NOT DETECT); Chlamydia Pneumoniae Not Detected (NOT DETECT); Coronavirus 229E,HKU1,NL63,OC4 Not Detected (NOT DETECT); Human Metapneumovirus Not Detected (NOT DETECT); Human Rhinovirus/Enterovirus Detected (NOT DETECT); Influenza A Not Detected (NOT DETECT); Influenza A H1 Not Detected (NOT DETECT); Influenza A H1-2009 Not Detected (NOT DETECT); Influenza A H3 Not Detected (NOT DETECT); Influenza B Not Detected (NOT DETECT); Mycoplasma Pneumoniae Not Detected (NOT DETECT); Parainfluenza Virus Type 1 Not Detected (NOT DETECT); Parainfluenza Virus Type 2 Not Detected (NOT DETECT); Parainfluenza Virus Type 3 Not Detected (NOT DETECT); Parainfluenza Virus Type 4 Not Detected (NOT DETECT); Respiratory Syncytial Virus A Not Detected (NOT DETECT); Respiratory Syncytial Virus B Not Detected (NOT DETECT); SARS-COV-2 Not Detected (NOT DETECT)
[2021-04-28 20:32] LABS: Human Metapneumovirus Not Detected (NOT DETECT); Human Rhinovirus/Enterovirus Detected (NOT DETECT); Results from Genmark
--- NOTE | 2021-04-28 21:56 | PC.NURSE ---
Vistaril 50 mg & Xanax 1 mg administered for severe anxiety and Trazadone administered for sleep aide.
[2021-04-28 22:00] VITALS: BP 112/77; PULSE 75; RESP 18; TEMP 36.8; O2SAT 99
[2021-04-29 06:00] VITALS: RESP 16
[2021-04-29] MEDS: multivitamin therapeutic Tablet 1 TAB PO (09:12)
[2021-04-29] MEDS: naproxen 500 mg Tablet PO (09:12)
[2021-04-29] MEDS: nicotine 2 mg Gum BUCCAL (09:13)
[2021-04-29] MEDS: levETIRAcetam 500 mg Tablet PO (09:14)
[2021-04-29] MEDS: sertraline 50 mg Tablet PO (09:14)
[2021-04-29] MEDS: thiamine 100 mg Tablet PO (09:14)
[2021-04-29] MEDS: folic acid 1 mg Tablet PO (09:14)
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
[2021-04-29 11:01] VITALS: BP 112/77; PULSE 75; RESP 16; TEMP 36.8; O2SAT 99
== END 2021-04-29 13:18 | disposition home or self-care (01) | DRG 897 ==
LOC: ER 10:19 → NP 13:28
PROVIDERS: Admitting Provider Psychiatry & Neurology Psychiatry; Emergency Provider Family Medicine; PCP Family Medicine; Visit Provider Psychiatry & Neurology Psychiatry
DX: F15.151 Other stimulant abuse with stimulant-induced psychotic disorder with hallucinations (principal); F33.1 Major depressive disorder, recurrent, moderate; F10.982 Alcohol use, unspecified with alcohol-induced sleep disorder; F41.9 Anxiety disorder, unspecified; I10 Essential (primary) hypertension; G47.00 Insomnia, unspecified; F17.220 Nicotine dependence, chewing tobacco, uncomplicated; F19.10 Other psychoactive substance abuse, uncomplicated
CPT/HCPCS: 80053; 80306; 80307; 85025; 87635; 87801; 96372; 97165; 99285; J2060; J3486

== ENCOUNTER 2021-06-24 14:53 | Emergency (ER) | payer MEDICAID, SELFPAY ==
[2021-06-24 14:57] VITALS: BP 143/106; PULSE 99; RESP 17; TEMP 36.6; O2SAT 96; BMI 27.3
--- NOTE | 2021-06-24 15:31 | ECG_ITS ---
[facility] Test Date: 2021-06-24 Pat Name: Aaron Bermeo Department: Room: Gender: Male Lead Scientist: : [id number] Requested By: Meliton Chavira Order Number: [id number] Bravo MD: Angelica Valadez M.D. Measurements Intervals [place] Rate: 80 P: 65 W[place]: 150 QRS: 66 QRSD: 87 T: 52 QT: 379 QTc: 438 Interpretive Statements SINUS RHYTHM WITH SINUS ARRHYTHMIA Compared to ECG 03/23/2021 01:10:54 No significant changes Electronically Signed On 06-25-2021 10:28:34 TRAUMA COORDINATOR by Angelica Valadez M.D. [email or web address]
[2021-06-24 15:43] LABS: Basophils # 0.1 10^3/uL (0.0-0.1); Basophils % 0.9 %; Eosinophils # 0.1 10^3/uL (0.0-0.8); Hematocrit 44.8 % (42.0-52.0); Hemoglobin 15.4 g/dL (11.7-16.6); Lymphocytes # 2.5 10^3/uL (0.8-4.8); Lymphocytes % 43.6 %; Mean Corpuscular HGB Conc 34.4 g/dL (30.0-36.0); Mean Corpuscular Hemoglobin 35.2 pg (28.0-34.0); Mean Corpuscular Volume 102.5 fl (80-94); Monocytes # 0.3 10^3/uL (0.2-0.9); Monocytes % 5.5 %; Neutrophils # 2.83 10^3/uL (1.8-7.7); Neutrophils % 48.8 %; Nucleated Red Blood Cells % 0 %; Platelet Count 223 10^3/cmm (130-400); Red Blood Count 4.37 10^6/uL (4.1-5.3); Red Cell Distribution Width 12.2 % (12.1-15.1); White Blood Count 5.8 10^3/uL (4.0-10.0)
[2021-06-24] MEDS: sodium chloride 0.9% 1,000 ML 999 ML IV (15:56)
--- NOTE | 2021-06-24 15:58 | CT_ITS ---
WS: [id number] CT HEAD NONCONTRAST HISTORY: fall TECHNIQUE: Contiguous axial imaging performed through the brain in 2.5 mm imaging. Bone and soft tiss ue windows. Sagittal and coronal reformats reviewed. All CT scans at [facility] use at least one of these dose optimization techniques: automated exposure control; mA and/or kV adjustment per pa tient size (includes targeted exams where dose is matched to clinical indication); or iterative recon struction. DLP: 768.85 mGy.cm COMPARISON: 03/23/2021 and 10/08/2013 No acute intracranial hemorrhage. There is an area of encephalomalacia in the LEFT temporal lobe. Thi s corresponds to a prior hemorrhage noted on 01/31/2021. No acute blood products are identified today. No recent infarct. Ventricles: Normal size with no hydrocephalus. Paranasal sinuses: Mild mucoperiosteal thickening in the ethmoid and sphenoid and frontal ethmoid rec esses. 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 Mastoid air cells: Well pneumatized. Calvarium and scalp: Skull is intact with no soft tissue edema or swelling. CT/CT head wo con* [id number] IMPRESSION: 1. No acute intracranial hemorrhage or edema. 2. 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
--- NOTE | 2021-06-24 16:01 | ED_ITS ---
HPI - Seizure General: Chief Complaint: Seizure Stated Complaint: SEIZURES Time Seen by Provider: 06/24/21 15:24 History of Present Illness: Seizure History: Yes Place: Home PFSH ED PFSH: Medical History Anxiety Compression fracture of vertebra Depression Insomnia Seizure Surgical History No pertinent past surgical history Family History Other CAD (coronary artery disease) Cancer Social History Smoking and tobacco status: current some day smoker smokeless tobacco Alcohol intake: current Alcohol intake frequency: holidays/special occasions only Housing: House Course Vital Signs: Vital signs: Vital Signs Temperature 97.9 F 06/24/21 14:57 Pulse Rate 99 06/24/21 14:57 Respiratory Rate 17 06/24/21 14:57 Blood Pressure 143/106 06/24/21 14:57 Pulse Oximetry 96 06/24/21 14:57 MDM - Seizure Lab Data Result diagrams: 06/24/21 15:00 06/24/21 15:00 Labs: Laboratory Results WBC 5.8 10^3/uL (4.0-10.0) 06/24/21 15:00 RBC 4.37 10^6/uL (4.1-5.3) 06/24/21 15:00 Hgb 15.4 g/dL (11.7-16.6) 06/24/21 15:00 Hct 44.8 % (42.0-52.0) 06/24/21 15:00 MCV 102.5 fl (80-94) H 06/24/21 15:00 MCH 35.2 pg (28.0-34.0) H 06/24/21 15:00 MCHC 34.4 g/dL (30.0-36.0) 06/24/21 15:00 RDW 12.2 % (12.1-15.1) 06/24/21 15:00 Plt Count 223 10^3/cmm (130-400) 06/24/21 15:00 MPV 9.0 fL (7.4-10.4) 06/24/21 15:00 Neut % (Auto) 48.8 % 06/24/21 15:00 Lymph % (Auto) 43.6 % 06/24/21 15:00 [place] % (Auto) 5.5 % 06/24/21 15:00 Eos % (Auto) 1.0 % 06/24/21 15:00 Baso % (Auto) 0.9 % 06/24/21 15:00 Neut # (Auto) 2.83 10^3/uL (1.8-7.7) 06/24/21 15:00 Lymph # (Auto) 2.5 10^3/uL (0.8-4.8) 06/24/21 15:00 [place] # (Auto) 0.3 10^3/uL (0.2-0.9) 06/24/21 15:00 Eos # (Auto) 0.1 10^3/uL (0.0-0.8) 06/24/21 15:00 Baso # (Auto) 0.1 10^3/uL (0.0-0.1) 06/24/21 15:00 Nucleated RBC % (auto) 0 % 06/24/21 15:00 Nucleated RBCs # 0.0 /100WBC 06/24/21 15:00 Discharge Plan Discharge Condition: Stable Prescriptions: No Action alprazolam 1 mg tablet 1 mg PO BID PRN (Reason: sleep) Qty: 60 2RF levetiracetam [Keppra] 500 mg tablet 500 mg PO BID Qty: 180 1RF sertraline 50 mg tablet 50 mg PO DAILY 0RF Referrals: Aneta Pack MD [Primary Care Provider] - Coding Level of Care Code ED Chemical Unit Operator for Kennedyg Minoo
--- NOTE | 2021-06-24 16:17 | PC.NURSE ---
pt placed on continuous spo2, nibp, and cm.
--- NOTE | 2021-06-24 16:26 | ED_ITS ---
HPI - General Adult General: Chief complaint: Seizure Stated complaint: SEIZURES Time Seen by Provider: 06/24/21 15:24 History of Present Illness: Patient is a 26-year-old male history alcohol dependence presenting to the emergency room with witnessed episode of seizure at home. Per EMS, patient had episode with a seizure around 1:30 PM this afternoon. Patient's mom became concerned and brought patient here to the emergency room. Patient last drank alcohol earlier this morning. On arrival, patient is AAOx3. Patient has no other focal complaints of any chest pain, shortness breath, palpitation, nausea/vomiting, diarrhea, melena hematochezia, complaints, headache, focal weakness, vision changes, slurring of speech, or any new extreme complaints. Onset: 1:30pm Duration:once Location:home Severity:moderate Associated symptoms: Deny chest pain, dyspnea, nausea, rash, palpitations or vomiting Review of Systems Const: Denies: fever(s) or chills Eyes: Denies: change in vision ENMT: Denies: mouth pain Card: Denies: chest pain or palpitations Resp: Denies: dyspnea or non-productive cough GI: Denies: abdominal pain, nausea, vomiting or diarrhea : Denies: dysuria Musc: Denies: extremity pain Skin/Breast: Denies: rash or new lesions Neuro: Denies: weakness in extremities Psych: Reports: other (Normal mood) [place]/Lymph: Denies: easy bruising PFSH ED PFSH: Medical History Anxiety Compression fracture of vertebra Depression Insomnia Seizure Surgical History No pertinent past surgical history Family History Other CAD (coronary artery disease) Cancer Social History Smoking and tobacco status: current some day smoker smokeless tobacco Alcohol intake: current Alcohol intake frequency: holidays/special occasions only Housing: House Physical Exam Const: COMMON NORMALS: alert HENMT: COMMON NORMALS: atraumatic HEAD & SCALP: atraumatic MOUTH: moist mucous membranes not abnormal Eye: COMMON NORMALS: EOMs intact bilaterally and conjunctivae normal CONJUNCTIVA: Yes conjunctivae normal Neck/C-Spine: COMMON NORMALS: full ROM and supple Resp: COMMON NORMALS: normal respiratory effort and clear to auscultation bilaterally AUSCULTATION: clear to auscultation bilaterally Cardio: COMMON NORMALS: regular rate RATE: regular rate GI: COMMON NORMALS: Soft to palpation and non-tender PALPATION: Yes Soft to palpation Extremity: COMMON NORMALS: full ROM Neuro: SENSORIUM/ORIENTATION: Yes alert MOTOR EXAM: No Abnormal motor strength present and Other motor observations present (no focal motor deficits) OTHER: Mental status? Awake, alert, and oriented to self, year, month, location, and situation.? Following simple axial and appendicular commands.? Has appropriate fund of knowledge, comprehension, and insight.? Able to recall and understands pertinent aspects of medical history and current treatment status.? ? Language? Speech is fluent without word-finding difficulties.? Intact naming, expression, operator receptionist, and repetition.? ? Cranial nerves? 2,3,4,6: PERRL, EOMI with no nystagmus. 5: Intact sensation to light touch, symmetric? 7: Smile symmetrical, no facial droop.? 8: Hearing grossly intact.? 9,10: Normal palate movement.? 11: Normal strength in trapezius bilaterally 12: Tongue protrudes midline.? ? Motor examination? Normal bulk & tone. Strength as follows (R/L): Delts (5/5), Biceps (5/5), Triceps (5/5), Wrist ext (5/5), hip flexors (5/5), plantarflexors (5/5), dorsiflexors (5/5). ? Sensation? Light Touch: Grossly intact and equal in upper and lower extremities bilaterally? Romberg: Negative.? Distal joint position sense intact ? Coordination? Lrgwxx-ka-szyt-finger movements intact without dysmetria or past-pointing.? Rapid fingertaps: preserved amplitude without decriment.? No tremor, myoclonus or truncal ataxia.? ? Gait/stance? Steady, normal narrow base gait with appropriate arm swing and turning.? Tandem gait without hesitation or loss of balance. Psych: COMMON NORMALS: speech normal SPEECH: Yes normal speech MOOD & AFFECT: Yes euthymic mood Course Vital Signs: Vital signs: Vital Signs Temperature 97.9 F 06/24/21 14:57 Pulse Rate 99 06/24/21 14:57 Respiratory Rate 17 06/24/21 14:57 Blood Pressure 143/106 06/24/21 14:57 Pulse Oximetry 96 06/24/21 14:57 MDM - General Adult Medical Decision Making [26]yo patient w/ known hx of seizure on parazolam medications BIBA after a new episode of seizure with unknown duration which occurred 1:30pm. At baseline on arrival. The episode of seizure was witnessed and without any trauma/injury to the head. No immunosuppression hx and without preceding fever. - history of alcohol abuse or suspicion for toxin ingestion. Hx of prior seizure likely breakthrough seizure in the setting of medication change/non-compliance. HDS. Exam revealed no focal trauma/deformity/bruises. No lips/tongue lacerations. No visible bowel/bladder incontinence Airway protected. No drooling. Sats > 95%. Unlikely to be stroke, neurogenic syncope, acute delirium, intracranial tumor/mass, intracranial bleed, SAH/subdural hematoma/epidural hematoma, meningitis, or intracranial abscess, or from alcohol withdrawal. Workup: CBC, BMP, Magnesium, EKG CT brain if fall or ruling out other pathologies ED Interventions: 1g of keppra, PO challenge, serial reassessment EKG: No e/o STEMI. No evidence of Brugada?s sign, delta wave, epsilon wave, significantly prolonged QTc, or malignant arrhythmia. Lab findings: Electrolytes including K and Mg wnl. [4:28pm] On reassessment, patient back to baseline. In the ED, the patient received 1g of keppra in the ED. No other witnessed episodes of seizure while the patient was observed in the ED. Repeat neuro exam is non-focal and repeat ROS today is negative. Patient takes aprazolam for his seizures and tells me the seizure to medicine no working. Patient is on 500mg BID of keppra will increase to 750mg BID of keppra. Patient tolerated PO in the ED and was able to ambulate without difficulties. Unlikely to be alternative causes of seizures since the patient has no hx of immunosuppression, no recent fevers, no recent abx/WASTE HAND shunt, no recent toxic exposure, no unilateral or focal weakness, or trauma. Repeat neurological exam is intact after patient is fully awake. No suspicion for TIA/stroke/SAH/brain bleed/ or infection for seizure episode. I have given patient follow up with our adult protective caseworker to be seen by our outpatient [facility] for management of breakthrough seizures. Patient aware of a call from our adult protective caseworker to schedule for appointment(s) and verbalizes understanding of the importance of following up. Rx keppra 750 BID daily Disposition: Discharge. Patient is given instruction for follow-up with PCP and Neurology in the next 24-48 hours. Given seizure precautions including no driving, swimming, or bathing until the patient is fully evaluated by speciali sts. Lab Data : 06/24/21 15:00 06/24/21 16:[address] 06/24/21 15:58 IMPRESSION: 1. No acute intracranial hemorrhage or edema. 2. 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 Laboratory Results WBC 5.8 10^3/uL (4.0-10.0) 06/24/21 15:00 RBC 4.37 10^6/uL (4.1-5.3) 06/24/21 15:00 Hgb 15.4 g/dL (11.7-16.6) 06/24/21 15:00 Hct 44.8 % (42.0-52.0) 06/24/21 15:00 MCV 102.5 fl (80-94) H 06/24/21 15:00 MCH 35.2 pg (28.0-34.0) H 06/24/21 15:00 MCHC 34.4 g/dL (30.0-36.0) 06/24/21 15:00 RDW 12.2 % (12.1-15.1) 06/24/21 15:00 Plt Count 223 10^3/cmm (130-400) 06/24/21 15:00 MPV 9.0 fL (7.4-10.4) 06/24/21 15:00 Neut % (Auto) 48.8 % 06/24/21 15:00 Lymph % (Auto) 43.6 % 06/24/21 15:00 [place] % (Auto) 5.5 % 06/24/21 15:00 Eos % (Auto) 1.0 % 06/24/21 15:00 Baso % (Auto) 0.9 % 06/24/21 15:00 Neut # (Auto) 2.83 10^3/uL (1.8-7.7) 06/24/21 15:00 Lymph # (Auto) 2.5 10^3/uL (0.8-4.8) 06/24/21 15:00 [place] # (Auto) 0.3 10^3/uL (0.2-0.9) 06/24/21 15:00 Eos # (Auto) 0.1 10^3/uL (0.0-0.8) 06/24/21 15:00 Baso # (Auto) 0.1 10^3/uL (0.0-0.1) 06/24/21 15:00 Nucleated RBC % (auto) 0 % 06/24/21 15:00 Nucleated RBCs # 0.0 /100WBC 06/24/21 15:00 Sodium 144 mmol/L (136-145) 06/24/21 16:22 Potassium 3.8 mmol/L (3.5-5.1) 06/24/21 16:22 Chloride 107 mmol/L (98-107) 06/24/21 16:22 Carbon Dioxide 26 mmol/L (22-29) 06/24/21 16:22 Anion Gap 14.8 (5-19) 06/24/21 16:22 BUN 9 mg/dL (6-20) 06/24/21 16:22 Creatinine 0.7 mg/dL (0.7-1.2) 06/24/21 16:22 GFR Calculation 135.3 mL/min (90-130) H 06/24/21 16:22 Glucose 97 mg/dL (65-115) 06/24/21 16:22 Calculated Osmolality 297 mOsm/kg (285-295) H 06/24/21 16:22 Calcium 8.1 mg/dL (8.5-10.5) L 06/24/21 16:22 Magnesium 2.1 mg/dL (1.7-2.3) 06/24/21 16:22 Total Bilirubin 0.3 mg/dL (0.15-1.2) 06/24/21 16:22 AST 33 U/L (0-40) 06/24/21 16:22 ALT 19 U/L (0-41) 06/24/21 16:22 Alkaline Phosphatase 68 IU/L (40-130) 06/24/21 16:22 Total Protein 6.8 g/dL (6.6-8.7) 06/24/21 16:22 Albumin 4.0 g/dL (3.5-5.2) 06/24/21 16:22 Globulin 2.8 g/dL (1.3-4.6) 06/24/21 16:22 Lipase 60 U/L (13-60) 06/24/21 16:22 Imaging Data Other Imaging: Radiologist's impression: [address] [place] [address] CT Scan Report Signed Patient: Aaron Bermeo Unit #: [id number] : 1995 Age/Sex: 26 / M ADM Date: 06/24/21 Loc: ER Room/Bed: Attending Dr: Ordering Provider/Ordering MD: Meliton Chavira MD Date of Service: 06/24/21 Procedure(s): CT head wo con* [id number] Accession Number(s): [id number] Report Number: [id number] WS: [id number] CT HEAD NONCONTRAST HISTORY: fall TECHNIQUE: Contiguous axial imaging performed through the brain in 2.5 mm imaging. Bone and soft tissue windows. Sagittal and coronal reformats reviewed.? [facility] scans at [facility] use at least one of these dose optimization techniques: automated exposure control; mA and/or kV adjustment per patient size (includes targeted exams where dose is matched to clinical indication); or iterative reconstruction. DLP: 768.85 mGy.cm COMPARISON: 03/23/2021 and 10/08/2013 No acute intracranial hemorrhage. There is an area of encephalomalacia in the LEFT temporal lobe. This corresponds to a prior hemorrhage noted on 01/31/2021. No acute blood products are identified today. No recent infarct. Ventricles:? Normal size with no hydrocephalus. Paranasal sinuses: Mild mucoperiosteal thickening in the ethmoid and sphenoid and frontal ethmoid recesses. 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 Mastoid air cells: Well pneumatized. Calvarium and scalp: Skull is intact with no soft tissue edema or swelling. CT/CT head wo con* [id number] IMPRESSION: ? 1.? No acute intracranial hemorrhage or edema. 2.? 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 ? Dictated By: Christina Lewis DO Signed By: Christina Lewis DO Signed Date/Time: 06/24/211625 DD/ 20 Discharge Plan Discharge Patient Disposition: Home Clinical Impression: Seizure, Alcohol dependence Condition: Stable Prescriptions: New Keppra 750 mg tablet 750 mg PO BID 28 Days Qty: 56 0RF Discontinued levetiracetam [Keppra] 500 mg tablet 500 mg PO BID Qty: 180 1RF No Action alprazolam 1 mg tablet 1 mg PO BID PRN (Reason: sleep) Qty: 60 2RF sertraline 50 mg tablet 50 mg PO DAILY 0RF Discharge Orders: Discharge ED (Routine); Ordered 06/24/21 Ordered By: Meliton Chavira Referrals: Aneta Pack MD [Primary Care Provider] - Discharge Diet: Advance as tolerated Discharge Activity: Increase activity as tolerated Patient Instructions: Epilepsy (ED) Activity Restrictions/Additional Instructions: Please come back to the emergency room for any more breakthrough episodes of seizure. Come back if any weakness in her arms, drooling, difficulty speaking, any neurological symptoms. Please do not swim bathe or drive a vehicle unattended. Coding Level of Care Code ED Crap Shooter for Kennedyg Fwd Exam Comprehensive
[2021-06-24 17:07] LABS: Alanine Aminotransferase 19 U/L (0-41); Alkaline Phosphatase 68 IU/L (40-130); Aspartate Amino Transferase 33 U/L (0-40); Blood Urea Nitrogen 9 mg/dL (6-20); Calcium 8.1 mg/dL (8.5-10.5); Carbon Dioxide 26 mmol/L (22-29); Chloride 107 mmol/L (98-107); Globulin 2.8 g/dL (1.3-4.6); Glomerular Filtration Rate 135.3 mL/min (90-130); Glucose 97 mg/dL (65-115); Lipase 60 U/L (13-60); Magnesium 2.1 mg/dL (1.7-2.3); Osmolality Calculated 297 mOsm/kg (285-295); Sodium 144 mmol/L (136-145); Total Bilirubin 0.3 mg/dL (0.15-1.2); Total Protein 6.8 g/dL (6.6-8.7)
[2021-06-24 17:09] LABS: Anion Gap 14.8 (5-19); Potassium 3.8 mmol/L (3.5-5.1)
[2021-06-24 17:23] VITALS: BP 143/92; PULSE 88; RESP 12; O2SAT 97
--- NOTE | 2021-06-27 14:57 | DCPLANNER ---
Addendum entered by Daxa Sutton 07/01/21 14:43: Clinic attempted to contact patient to schedule an appointment, but clinic has not been able to reach patient, phone number is unavailable. Original Note: regional loss prevention manager had message to schedule a follow up appointment for patient with neurology. regional loss prevention manager emailed patients information to the neurology clinic. Patients information will be printed and reviewed. Clinic will call patient with appointment information. Patient sees Dr. Pack for primary care. regional loss prevention manager called the office of Dr. Pack to let physician know that his patient was seen in the ER.
== END 2021-06-24 17:36 | disposition home or self-care (01) ==
PROVIDERS: Emergency Provider Emergency Medicine; PCP Family Medicine
DX: R56.9 Unspecified convulsions (principal); F10.20 Alcohol dependence, uncomplicated; F17.220 Nicotine dependence, chewing tobacco, uncomplicated
CPT/HCPCS: 70450; 80053; 83690; 83735; 85025; 93005; 96365; 99283; J1953; J7030

== ENCOUNTER 2021-07-02 13:31 | Emergency (ER) | payer MEDICAID, SELFPAY ==
[2021-07-02 13:33] VITALS: BP 161/125; PULSE 94; RESP 17; TEMP 36.9; O2SAT 96
[2021-07-02 13:59] LABS: Basophils # 0.1 10^3/uL (0.0-0.1); Basophils % 1.3 %; Eosinophils % 0.8 %; Hematocrit 45.1 % (42.0-52.0); Hemoglobin 15.8 g/dL (11.7-16.6); Lymphocytes # 1.7 10^3/uL (0.8-4.8); Lymphocytes % 44.4 %; Mean Corpuscular Hemoglobin 35.2 pg (28.0-34.0); Mean Corpuscular Volume 100.4 fl (80-94); Mean Platelet Volume 9.3 fL (7.4-10.4); Monocytes # 0.3 10^3/uL (0.2-0.9); Monocytes % 8.6 %; Neutrophils # 1.68 10^3/uL (1.8-7.7); Neutrophils % 44.9 %; Nucleated Red Blood Cells % 0 %; Platelet Count 187 10^3/cmm (130-400); Red Blood Count 4.49 10^6/uL (4.1-5.3); Red Cell Distribution Width 12.7 % (12.1-15.1); White Blood Count 3.7 10^3/uL (4.0-10.0)
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
[2021-07-02 14:11] LABS: Add Urine Microscopic? NO; Charge for UA Resulting for Rev
[2021-07-02 14:17] LABS: Partial Thromboplastin Time 25.5 SECONDS (23.9-36.7)
[2021-07-02 14:18] LABS: Ammonia 34 umol/L (16-60)
[2021-07-02 14:20] LABS: Alanine Aminotransferase 23 U/L (0-41); Alkaline Phosphatase 75 IU/L (40-130); Anion Gap 17.9 (5-19); Aspartate Amino Transferase 44 U/L (0-40); Blood Urea Nitrogen 12 mg/dL (6-20); Calcium 9.2 mg/dL (8.5-10.5); Carbon Dioxide 27 mmol/L (22-29); Chloride 103 mmol/L (98-107); Globulin 2.7 g/dL (1.3-4.6); Glomerular Filtration Rate 135.3 mL/min (90-130); Glucose 101 mg/dL (65-115); Osmolality Calculated 298 mOsm/kg (285-295); Potassium 3.9 mmol/L (3.5-5.1); Sodium 144 mmol/L (136-145); Total Bilirubin 0.3 mg/dL (0.15-1.2); Total Protein 7.7 g/dL (6.6-8.7)
[2021-07-02 14:22] LABS: Alcohol Level 337 mg/dL (0-10)
[2021-07-02 14:25] LABS: Amphetamines Screen Urine Negative (Negative); Barbiturates Screen Urine Negative (Negative); Benzodiazepines Screen Urine Positive (Negative); Cocaine Screen Urine Negative (Negative); Opiate Screen Urine Negative (Negative); PCP Screen Urine Negative (Negative); THC Screen Urine Negative (Negative)
[2021-07-02 14:36] LABS: Bilirubin Urine Neg (Negative); Blood Urine Neg (Negative); Glucose Urine UA Norm (Normal); Ketones Urine Negative (Negative); Leukocyte Esterase Urine Negative (Negative); Nitrate Urine Negative (Negative); Protein Urine Neg (Negative); Sulfosalicylic Acid Urine Negative (Negative); Urine Appearance Clear (CLEAR); Urine Color Yellow (Yellow); Urobilinogen Urine Norm (Negative); pH Urine 8 (5-7)
[2021-07-02 14:38] VITALS: BP 145/117; PULSE 86; RESP 14; O2SAT 99
== END 2021-07-02 14:40 | disposition home or self-care (01) ==
PROVIDERS: Emergency Provider Family Medicine; PCP Family Medicine
DX: F10.129 Alcohol abuse with intoxication, unspecified (principal); Y90.8 Blood alcohol level of 240 mg/100 ml or more; F17.210 Nicotine dependence, cigarettes, uncomplicated
CPT/HCPCS: 80053; 80306; 80307; 81003; 82140; 85025; 85610; 85730; 99282

== ENCOUNTER 2022-10-31 19:04 | Emergency (ER) | payer MEDICAID, SELFPAY ==
[2022-10-31 19:08] VITALS: BP 138/105; PULSE 100; TEMP 38.1; O2SAT 96; BMI 20.9
--- NOTE | 2022-10-31 19:08 | ED_ITS ---
HPI - Seizure General: Chief Complaint: Seizure Stated Complaint: SEIZURE Time Seen by Provider: 10/31/22 19:06 Limitations: altered mental status History of Present Illness: HPI Narrative: Mr. Bermeo is a 27-year-old gentleman with history of temporal lobe epilepsy presenting to the emergency department for evaluation of seizure. History is mildly limited as the patient appears still mildly postictal. He reports having a sore throat and feeling mildly generally unwell for the past few days and apparently had a witnessed seizure. Did have tongue bite and loss of urinary continence. He reports compliance with his medication regimen. Denies drinking today. No other specific changes in health, exacerbating, or alleviating factors identified. Seizure History: Yes Review of Systems General: Reports: ROS unobtainable due to medical condition PFSH ED PFSH: Medical History Anxiety Compression fracture of vertebra Depression Insomnia Seizure Surgical History No pertinent past surgical history Family History Other CAD (coronary artery disease) Cancer Social History Smoking and tobacco status: current every day smoker smokeless tobacco Alcohol intake: current Alcohol intake frequency: holidays/special occasions only Substance/Drug Use: never Housing: House Physical Exam Const: COMMON NORMALS: alert GENERAL APPEARANCE: cooperative and well developed HENMT: COMMON NORMALS: normocephalic and atraumatic HEAD & SCALP: normocephalic and atraumatic THROAT: posterior oropharynx normal OTHER: tongue bite present, no active bleeding. Eye: COMMON NORMALS: conjunctivae normal CONJUNCTIVA: Yes conjunctivae normal SCLERA: sclerae normal Neck/C-Spine: COMMON NORMALS: supple GENERAL: Yes trachea midline Resp: COMMON NORMALS: clear to auscultation bilaterally EFFORT & INSPECTION: Yes able to speak in complete sentences AUSCULTATION: clear to auscultation bilaterally Cardio: COMMON NORMALS: regular rate and regular rhythm RATE: regular rate RHYTHM: regular rhythm GI: COMMON NORMALS: Soft to palpation PALPATION: Yes Soft to palpation and No Tenderness to palpation present (GI) PERCUSSION: normal to percussion : OTHER: Lost continence of urine Extremity: GENERAL: Yes normal exam except as noted and No edema Neuro: COMMON NORMALS: moves all extremities SENSORIUM/ORIENTATION: Yes alert and Yes Orientation impaired OTHER: Appears postictal Psych: COMMON NORMALS: mental status grossly normal and Normal thought process present THOUGHT PROCESS: Normal thought process present Course Vital Signs: Vital signs: Vital Signs Temperature 100.5 F H 10/31/22 19:08 Pulse Rate 96 10/31/22 21:37 Respiratory Rate 16 10/31/22 21:37 Blood Pressure 133/92 10/31/22 21:37 Pulse Oximetry 95 10/31/22 21:37 Oxygen Delivery Me thod Room Air 10/31/22 21:37 MDM - Seizure MDM Narrative Medical decision making narrative: 27-year-old male with seizure disorder presenting with seizure. Patient appears postictal. No focal neurodeficits. Nontoxic. No meningismus. EKG demonstrates sinus rhythm with normal axis and intervals, no STEMI. Hemoconcentration and likely changes related to seizure noted on labs. Alcohol level negative. Strep negative. No indication for imaging. Patient given Keppra load. Potassium management, fluids, analgesia. Improved and back to baseline on reassessment. Seizure cautions were discussed. Discussed with neuro, plan for outpatient close management and follow-up. The results of ED evaluation were discussed with the patient including prescriptions and/or symptomatic cares (if applicable) including appropriate and responsible use, followup plan, and return precautions. The patient verbalized understanding and felt safe for discharge. Medical Records Attestation: I reviewed the patient's medical records. Lab Data Attestation: I reviewed the patient's lab results. 10/31/22 19:18 10/31/22 19:18 Labs: Radiology Impressions Lumbar Spine X-Ray 10/31/22 20:50 IMPRESSION: No acute fracture of the lumbar spine. CT scan would be recommended if there is continuing clinical concern for fracture. Laboratory Results WBC 13.7 10^3/uL (4.0-10.0) H 10/31/22 19:18 RBC 5.04 10^6/uL (4.1-5.3) 10/31/22 19:18 Hgb 17.3 g/dL (11.7-16.6) H 10/31/22 19:18 Hct 50.3 % (42.0-52.0) 10/31/22 19:18 MCV 99.8 fl (80-94) H 10/31/22 19:18 MCH 34.3 pg (28.0-34.0) H 10/31/22 19:18 MCHC 34.4 g/dL (30.0-36.0) 10/31/22 19:18 RDW 12.1 % (12.1-15.1) 10/31/22 19:18 Plt Count 84 10^3/cmm (130-400) L 10/31/22 19:18 MPV 11.3 fL (7.4-10.4) H 10/31/22 19:18 Neut % (Auto) 81.2 % 10/31/22 19:18 Lymph % (Auto) 9.1 % 10/31/22 19:18 [place] % (Auto) 7.9 % 10/31/22 19:18 Eos % (Auto) 0.1 % 10/31/22 19:18 Baso % (Auto) 0.3 % 10/31/22 19:18 Neut # (Auto) 11.13 10^3/uL (1.8-7.7) H 10/31/22 19:18 Lymph # (Auto) 1.2 10^3/uL (0.8-4.8) 10/31/22 19:18 [place] # (Auto) 1.1 10^3/uL (0.2-0.9) H 10/31/22 19:18 Eos # (Auto) 0.0 10^3/uL (0.0-0.8) 10/31/22 19:18 Baso # (Auto) 0.0 10^3/uL (0.0-0.1) 10/31/22 19:18 Nucleated RBC % (auto) 0 % 10/31/22 19:18 Nucleated RBCs # 0.0 /100WBC 10/31/22 19:18 Sodium 131 mmol/L (136-145) L 10/31/22 19:18 Potassium 2.9 mmol/L (3.5-5.1) L 10/31/22 19:18 Chloride 84 mmol/L (98-107) L 10/31/22 19:18 Carbon Dioxide 10 mmol/L (22-29) L 10/31/22 19:18 Anion Gap 39.9 (5-19) H 10/31/22 19:18 BUN 7 mg/dL (6-20) 10/31/22 19:18 Creatinine 1.4 mg/dL (0.7-1.2) H 10/31/22 19:18 GFR Calculation 60.3 mL/min (90-130) L 10/31/22 19:18 Glucose 200 mg/dL (65-115) H 10/31/22 19:18 Calculated Osmolality 276 mOsm/kg (285-295) L 10/31/22 19:18 Calcium 9.1 mg/dL (8.5-10.5) 10/31/22 19:18 Levetiracetam 19.9 mcg/mL (6.0-46.0) 10/31/22 21:20 Ethyl Alcohol < 10 mg/dL (0-10) 10/31/22 19:18 Group A Strep Rapid Negative (Negative) 10/31/22 20:20 Discharge Plan Discharge Patient Disposition: Home Clinical Impression: Seizure, Epileptic seizure Condition: Stable Prescriptions: New diazepam 10 mg/spray (0.1 mL) spray,non-aerosol 10 mg intranasal Q10M PRN (Reason: seizures) Qty: 2 2RF Rx Instructions: for seizures longer than 5 minutes or multiple without return to baseline No Action amlodipine 5 mg tablet 5 mg PO ONCE 90 Days Qty: 90 3RF levetiracetam [Keppra] 750 mg tablet 750 mg PO TID Qty: 270 3RF alprazolam 0.5 mg tablet 0.5 mg PO BID PRN (Reason: anxiety) 30 Days Qty: 45 2RF Discharge Orders: Discharge ED (Routine); Ordered 10/31/22 Ordered By: Vahid Silva Referrals: Aneta Pack MD [Primary Care Provider] - Discharge Diet: Usual diet Discharge Activity: Limit activity as instructed Patient Instructions: Recurrent Seizures in Adults (ED) Activity Restrictions/Additional Instructions: Thank you for visiting the emergency department. You were seen and evaluated for seizure. The most likely cause of your seizure is related to underlying seizure disorder. Please continue your previously prescribed medications. 3 tablets of levetiracetam 750 mg extended release once daily. I will message case management for follow-up with Dr. Holman. Please follow all previously given instructions and precautions including standard seizure precautions such as no driving, no operating machinery, no swimming in a swimming pool or bathing in a tub with standing water, do not cook over open flames or stand over fire, do not climb tall objects. Do not other richardson perform tasks that would be dangerous if you were to have another seizure. Return for anything else that you are concerned about and feel needs emergency department evaluation. Coding Level of Care Code ED Communication Analyst for Dalila Hennessy
--- NOTE | 2022-10-31 19:20 | ECG_ITS ---
[facility] Test Date: 2022-10-31 Pat Name: Aaron Bermeo Department: Room: Gender: Male Sciences Dean: : 1995 Requested By: Vahid Silva Order Number: [id number] Bravo MD: Jaylyn Hirsch M.D. Measurements Intervals [place] Rate: 95 P: 64 FL: 147 QRS: 64 QRSD: 86 T: 56 QT: 330 QTc: 415 Interpretive Statements SINUS RHYTHM Compared to ECG 06/24/2021 16:25:08 Sinus arrhythmia no longer present Electronically Signed On 11-02-2022 10:03:47 CDT by Jaylyn Hirsch M.D. [id number]
[2022-10-31 19:33] VITALS: BP 154/113; PULSE 93; RESP 21; O2SAT 98
[2022-10-31] MEDS: sodium chloride 0.9% 1,000 ML 999 ML IV (19:33)
[2022-10-31 19:55] LABS: Basophils % 0.3 %; Eosinophils % 0.1 %; Hematocrit 50.3 % (42.0-52.0); Hemoglobin 17.3 g/dL (11.7-16.6); Lymphocytes # 1.2 10^3/uL (0.8-4.8); Lymphocytes % 9.1 %; Mean Corpuscular HGB Conc 34.4 g/dL (30.0-36.0); Mean Corpuscular Hemoglobin 34.3 pg (28.0-34.0); Mean Corpuscular Volume 99.8 fl (80-94); Mean Platelet Volume 11.3 fL (7.4-10.4); Monocytes # 1.1 10^3/uL (0.2-0.9); Monocytes % 7.9 %; Neutrophils # 11.13 10^3/uL (1.8-7.7); Neutrophils % 81.2 %; Nucleated Red Blood Cells % 0 %; Platelet Count 84 10^3/cmm (130-400); Red Blood Count 5.04 10^6/uL (4.1-5.3); Red Cell Distribution Width 12.1 % (12.1-15.1); White Blood Count 13.7 10^3/uL (4.0-10.0)
[2022-10-31 20:07] LABS: Anion Gap 39.9 (5-19); Blood Urea Nitrogen 7 mg/dL (6-20); Calcium 9.1 mg/dL (8.5-10.5); Carbon Dioxide 10 mmol/L (22-29); Chloride 84 mmol/L (98-107); Glomerular Filtration Rate 60.3 mL/min (90-130); Glucose 200 mg/dL (65-115); Osmolality Calculated 276 mOsm/kg (285-295); Sodium 131 mmol/L (136-145)
[2022-10-31 20:08] LABS: Alcohol Level < 10 mg/dL (0-10)
[2022-10-31 20:11] LABS: Potassium 2.9 mmol/L (3.5-5.1)
[2022-10-31] MEDS: potassium chloride oral liq 20 mEq/15 mL UDC 60 MEQ PO (20:17)
[2022-10-31 20:38] LABS: Rapid Strep A Test Negative (Negative)
--- NOTE | 2022-10-31 20:50 | XRR_ITS ---
PROCEDURE INFORMATION: Exam: XR Lumbosacral Spine Exam date and time: 10/31/2022 8:59 PM Age: 27 years old Clinical indication: Low back pain TECHNIQUE: Imaging protocol: Radiologic exam of the lumbosacral spine. Views: 2 or 3 views. COMPARISON: No relevant prior studies available. FINDINGS: Bones/joints: Vertebral body height is maintained. No subluxation. Normal bone mineralization. No acute fracture. Soft tissues: No paravertebral soft tissue abnormality. No radiopaque foreign body. XR/XR lumbar spine 2-3V* [id number] IMPRESSION: No acute fracture of the lumbar spine. CT scan would be recommended if there is continuing clinical concern for fracture.
[2022-10-31] MEDS: ketorolac 30 mg/mL INJ 15 MG IVP (21:30)
[2022-10-31] MEDS: acetaminophen 500 mg Tablet 1000 MG PO (21:30)
[2022-10-31 21:37] VITALS: BP 133/92; PULSE 96; RESP 16; O2SAT 95
--- NOTE | 2022-11-01 08:23 | PC.SOCIAL ---
Addendum entered by Daxa Sutton 11/30/22 07:23: Patient had a follow up appointment scheduled with neurology -patient did attend appointment Addendum entered by Daxa Sutton 11/20/22 16:11: Patient has a follow up appointment scheduled for Monday, November 21, 2022 at 12:30 with at neurology. Original Note: Neuro Referral Referral sent to neuro at this time. Clinic to contact patient with appt date/time.
[2022-11-02 11:19] LABS: Levetiracetam Immunoassy 19.9 mcg/mL (6.0-46.0)
== END 2022-10-31 22:10 | disposition home or self-care (01) ==
PROVIDERS: Emergency Provider Emergency Medicine; PCP Family Medicine
DX: G40.909 Epilepsy, unspecified, not intractable, without status epilepticus (principal); F17.220 Nicotine dependence, chewing tobacco, uncomplicated
CPT/HCPCS: 36415; 72100; 80048; 80177; 80307; 85025; 87081; 87880; 93005; 96374; 96375; 99285; J1885; J1953; J7030

== ENCOUNTER 2023-04-22 16:20 | Observation (INO) | payer MEDICAID, SELFPAY ==
[2023-04-22] VITALS (14 sets, daily range): BP systolic 127–156; BP diastolic 82–108; PULSE 76–128; RESP 18–24; TEMP 37–37.6; O2SAT 94–98; BMI 25.8; BMI 24.3
--- NOTE | 2023-04-22 16:29 | W.ED.AMS ---
Documented by User: TG West 04/22/23 17:41 HPI - Altered Mental Status General: Chief Complaint: Altered Mental Status Stated Complaint: AMS Time Seen by Provider: 04/22/23 16:24 Source: patient and EMS Mode of arrival: EMS Limitations: no limitations History of Present Illness: Patient presents to the emergency department today brought by EMS for evaluation treatment of episode of unresponsiveness. EMS states that they were called to the [employer] [facility] for an unresponsive patient in their vehicle. EMS states when they arrived, patient was conscious but was having some difficulty answering questions. Patient is alert and oriented here in the emergency department. He states he remembers going to the gas station but does not recall going unconscious. He reports it has been a long time since he has had a seizure and states he still takes his morning seizure medication every day. He reports taking his medicine today. Patient denies recent illness including fevers, cough, or congestion. He states he has not used any drugs or alcohol. Patient is reporting a significant headache at this time. He also states that he has had a brain bleed in the past-chart review confirms CT finding of left temporal brain bleed in January 2021. Patient denies nausea or vomiting. He denies visual changes at this time. Patient's medication list in his chart shows prescriptions for Keppra, Xanax, Valium, and Depakote. He is to take Keppra and Depakote daily, Xanax as needed for anxiety and the diazepam intranasally for seizures. Review of Systems General: Reports: 10 or more systems reviewed and unremarkable except in HPI and below PFSH ED PFSH: Medical History Thoracic and lumbosacral neuritis Back pain Compression fracture of vertebra Depression Seizure Insomnia Anxiety Surgical History No pertinent past surgical history Family History Other CAD (coronary artery disease) Cancer Social History Smoking and tobacco/nicotine status: current every day tobacco/nicotine user smokeless tobacco Alcohol intake: current Alcohol intake frequency: holidays/special occasions only Substance/Drug Use: never Housing: House Physical Exam Const: COMMON NORMALS: no acute distress, patient oriented x3 and alert Eye: COMMON NORMALS: Equal, round and reactive pupils present, EOMs intact bilaterally and conjunctivae normal CONJUNCTIVA: Yes conjunctivae normal PUPIL: Yes Equal, round and reactive pupils present Neck/C-Spine: COMMON NORMALS: no JVD Lymph: LYMPHATIC: no lymphadenopathy noted Resp: COMMON NORMALS: normal respiratory effort, No retractions and No use of accessory muscles Cardio: COMMON NORMALS: no JVD and regular rate RATE: regular rate GI: OTHER: Abdomen is soft. Nontender on palpation. : COMMON NORMALS: Yes no CVA tenderness BLADDER/KIDNEY EXAM: Yes no CVA tenderness Back/Pelvis: COMMON NORMALS: no CVA tenderness, thoracic and lumbar spine normal to inspection and thoraco-lumbar ROM normal Extremity: COMMON NORMALS: normal to inspection, full ROM and no pedal edema Neuro: COMMON NORMALS: patient oriented x3 SENSORIUM/ORIENTATION: Yes alert Psych: COMMON NORMALS: mental status grossly normal, Normal thought process present, cooperative, normal affect, speech normal and activity/motor behavior normal SPEECH: Yes normal speech THOUGHT PROCESS: Normal thought process present Skin: COMMON NORMALS: no rashes or lesions noted and turgor normal GENERAL SKIN EXAM: no rashes or lesions noted and turgor normal Course Vital Signs: Vital signs: Vital Signs Temperature 98.6 F 04/22/23 16:20 Pulse Rate 107 H 04/22/23 18:19 Respiratory Rate 18 04/22/23 18:19 Blood Pressure 141/96 04/22/23 18:40 Pulse Oximetry 97 04/22/23 18:40 Oxygen Delivery Me thod Room Air 04/22/23 18:40 MDM - Altered Mental Status Medical Decision Making Patient presented to the emergency department today brought by EMS after calls for an unconscious individual in their vehicle found at the [facility]. Patient states that he remembers going to the [employer] station but does not recall whether or not he had a seizure. He does have a significant seizure history but reported is been quite sometime since he has had 1. He reports he still takes his seizure medication as prescribed daily. Patient denied any pain upon his arrival other than a significant headache. With a headache, episode of unconsciousness, and a history of brain bleed we did do a CT scan which revealed no acute changes today. Lab work had quite a few concerns including low potassium and a low CO2 with a high anion gap. I did discuss the case with Dr. Angulo as further workup seemed warranted. Dr. Angulo was kind enough to continue monitoring and treating this patient for his acute findings today. Lab Data 04/22/23 16:00 04/22/23 16:[address] 04/22/23 16:30 IMPRESSION: No acute intracranial abnormality. Laboratory Results WBC 15.93 10^3/uL (3.29-11.43) H 04/22/23 16:00 RBC 5.03 10^6/uL (3.85-5.65) 04/22/23 16:00 Hgb 17.20 g/dL (11.27-16.99) H 04/22/23 16:00 Hct 50.5 % (37-53) 04/22/23 16:00 MCV 100.4 fl (82-101) 04/22/23 16:00 MCH 34.2 pg (27-33) H 04/22/23 16:00 MCHC 34.1 g/dL (30-55) 04/22/23 16:00 RDW 10.8 % (12.1-15.1) L 04/22/23 16:00 Plt Count 299 10^3/cmm (157-399) 04/22/23 16:00 MPV 10.5 fL (7.4-10.4) H 04/22/23 16:00 Neut % (Auto) 62.0 % 04/22/23 16:00 Lymph % (Auto) 29.3 % 04/22/23 16:00 Stearns % (Auto) 7.2 % 04/22/23 16:00 Eos % (Auto) 0.4 % 04/22/23 16:00 Baso % (Auto) 0.8 % 04/22/23 16:00 Neut # (Auto) 9.88 10^3/uL (1.8-7.7) H 04/22/23 16:00 Lymph # (Auto) 4.7 10^3/uL (0.8-4.8) 04/22/23 16:00 Stearns # (Auto) 1.1 10^3/uL (0.2-0.9) H 04/22/23 16:00 Eos # (Auto) 0.1 10^3/uL (0.0-0.8) 04/22/23 16:00 Baso # (Auto) 0.1 10^3/uL (0.0-0.1) 04/22/23 16:00 Nucleated RBC % (auto) 0 % 04/22/23 16:00 Nucleated RBCs # 0.0 /100WBC 04/22/23 16:00 Specimen Type Arterial 04/22/23 19:31 Sample Site Radial, right 04/22/23 19:31 ABG pH 7.49 (7.35-7.45) H 04/22/23 19:31 ABG pCO2 34.3 mmHg (35-45) L 04/22/23 19:31 ABG pO2 87.3 mmHg (80.0-100.0) 04/22/23 19:31 ABG PO2/FiO2 Ratio 0 04/22/23 19:31 ABG HCO3 26.1 mmol/L (22-26) H 04/22/23 19:31 ABG O2 Saturation 97.6 04/22/23 19:31 ABG Base Excess 3.2 mmol/L (-2.0-2.0) H 04/22/23 19:31 [place] Test Pos 04/22/23 19:31 A-a O2 Gradient 2.4 mmHg (5-10) L 04/22/23 19:31 Hematocrit 47.4 % (42-52) 04/22/23 19:31 Hgb O2 Saturation 96.2 % (95-100) 04/22/23 19:31 Carboxyhemoglobin 1.1 %THgb (0.4-20.1) 04/22/23 19:31 Methemoglobin 0.3 % (0.4-1.5) L 04/22/23 19:31 Total Hemoglobin 15.5 g/dL (14-18) 04/22/23 19:31 Sodium 135.0 mmol/L (131-143) 04/22/23 19:31 Potassium 3.4 mmol/L (3.5-5.0) L 04/22/23 19:31 Glucose 96.0 mg/dL (70-115) 04/22/23 19:31 Ionized Calcium 1.1 mmol/L (1.1-1.4) 04/22/23 19:31 O2 Delivery Device Room air 04/22/23 19:31 FiO2 21.0 % 04/22/23 19:31 Plating Department Helper MATTY Simon 04/22/23 19:31 Sodium 135 mmol/L (136-145) L 04/22/23 16:00 Potassium 2.9 mmol/L (3.5-5.1) L 04/22/23 16:00 Chloride 85 mmol/L (98-107) L 04/22/23 16:00 Carbon Dioxide 9 mmol/L (22-29) L 04/22/23 16:00 Anion Gap 43.9 (5-19) H 04/22/23 16:00 BUN 10 mg/dL (6-20) 04/22/23 16:00 Creatinine 1.4 mg/dL (0.7-1.2) H 04/22/23 16:00 GFR Calculation 59.9 mL/min (90-130) L 04/22/23 16:00 Glucose 215 mg/dL (65-115) H 04/22/23 16:00 Calculated Osmolality 286 mOsm/kg (285-295) 04/22/23 16:00 Lactic Acid 4.5 mmol/L (0.5-2.2) H* 04/22/23 17:43 Calcium 9.9 mg/dL (8.5-10.5) 04/22/23 16:00 Total Bilirubin 1.2 mg/dL (0.15-1.2) 04/22/23 16:00 AST 81 U/L (0-40) H 04/22/23 16:00 ALT 59 U/L (0-41) H 04/22/23 16:00 Alkaline Phosphatase 100 U/L (40-130) 04/22/23 16:00 Ammonia 36 umol/L (16-60) 04/22/23 18:05 Total Protein 8.2 g/dL (6.6-8.7) 04/22/23 16:00 Albumin 4.9 g/dL (3.5-5.2) 04/22/23 16:00 Globulin 3.3 g/dL (1.3-4.6) 04/22/23 16:00 Urine Color Straw (Yellow) 04/22/23 16:41 Urine Appearance Clear (CLEAR) 04/22/23 16:41 Urine pH 5 (5-7) 04/22/23 16:41 Ur Specific [place] 1.020 (1.005-1.030) 04/22/23 16:41 Urine Protein 3+ (Negative) H 04/22/23 16:41 Urine Glucose (UA) Norm (Normal) 04/22/23 16:41 Urine Ketones 1+ (Negative) H 04/22/23 16:41 Urine Blood 3+ (Negative) H 04/22/23 16:41 Urine Nitrate Negative (Negative) 04/22/23 16:41 Urine Bilirubin Neg (Negative) 04/22/23 16:41 Urine Urobilinogen Norm mg/dL (Negative) 04/22/23 16:41 Ur Leukocyte Esterase Negative (Negative) 04/22/23 16:41 Urine RBC 5-10 /hpf (0-2) H 04/22/23 16:41 Urine WBC 0-4 /hpf (0-5) H 04/22/23 16:41 Ur Squamous Epith Cells None /hpf (0-5) 04/22/23 16:41 Amorphous Sediment Not Reportable 04/22/23 16:41 Urine Bacteria 1+ /hpf (NONE) H 04/22/23 16:41 Hyaline Casts 15-25 /lpf H 04/22/23 16:41 Urine Mucus 1+ /hpf 04/22/23 16:41 Salicylates < 0.3 mg/dL (3-10) L 04/22/23 16:00 Urine Opiates Screen Negative ng/mL (Negative) 04/22/23 16:41 Ur Barbiturates Screen Negative ng/mL (Negative) 04/22/23 16:41 Ur Phencyclidine Scrn Negative ng/mL (Negative) 04/22/23 16:41 Ur Amphetamines Screen Negative ng/mL (Negative) 04/22/23 16:41 U Benzodiazepines Scrn Positive ng/mL (Negative) H 04/22/23 16:41 Urine Cocaine Screen Negative ng/mL (Negative) 04/22/23 16:41 U Marijuana (THC) Screen Negative ng/mL (Negative) 04/22/23 16:41 Ethyl Alcohol < 10 mg/dL (0-10) 04/22/23 16:00 Serum Ketones Negative (Negative) 04/22/23 16:00 EKG Data EKG 1: EKG interpretation date: 04/22/23 EKG interpretation time: 16:36 Computer generated interpretation: Sinus Tach at 127 bpm Discharge Plan Discharge Patient Disposition: Admitted As Inpatient Clinical Impression: Metabolic acidosis Altered mental status Qualifiers: Altered mental status type: disorientation Qualified Code(s): R41.0 - Disorientation, unspecified Condition: Stable Coding Level of Care Code ED [facility] Documented by User: Austen Angulo MD 04/22/23 20:12 HPI - Altered Mental Status General: Chief Complaint: Altered Mental Status Stated Complaint: AMS Time Seen by Provider: 04/22/23 16:24 Review of Systems Const: Reports: fatigue and malaise Neuro: Reports: dizziness, confusion and Slurred speech present PFSH ED PFSH: Medical History Thoracic and lumbosacral neuritis Back pain Compression fracture of vertebra Depression Seizure Insomnia Anxiety Surgical History No pertinent past surgical history Family History Other CAD (coronary artery disease) Cancer Social History Smoking and tobacco/nicotine status: current every day tobacco/nicotine user smokeless tobacco Alcohol intake: current Alcohol intake frequency: holidays/special occasions only Substance/Drug Use: never Housing: House Course Vital Signs: Vital signs: Vital Signs Temperature 98.6 F 04/22/23 16:20 Pulse Rate 107 H 04/22/23 18:19 Respiratory Rate 18 04/22/23 18:19 Blood Pressure 141/96 04/22/23 18:40 Pulse Oximetry 97 04/22/23 18:40 Oxygen Delivery Me thod Room Air 04/22/23 18:40 MDM - Altered Mental Status Medical Records I reviewed the patient's medical records. Lab Data I reviewed the patient's lab results. 04/22/23 16:00 04/22/23 16:[address] 04/22/23 16:30 IMPRESSION: No acute intracranial abnormality. Laboratory Results WBC 15.93 10^3/uL (3.29-11.43) H 04/22/23 16:00 RBC 5.03 10^6/uL (3.85-5.65) 04/22/23 16:00 Hgb 17.20 g/dL (11.27-16.99) H 04/22/23 16:00 Hct 50.5 % (37-53) 04/22/23 16:00 MCV 100.4 fl (82-101) 04/22/23 16:00 MCH 34.2 pg (27-33) H 04/22/23 16:00 MCHC 34.1 g/dL (30-55) 04/22/23 16:00 RDW 10.8 % (12.1-15.1) L 04/22/23 16:00 Plt Count 299 10^3/cmm (157-399) 04/22/23 16:00 MPV 10.5 fL (7.4-10.4) H 04/22/23 16:00 Neut % (Auto) 62.0 % 04/22/23 16:00 Lymph % (Auto) 29.3 % 04/22/23 16:00 Stearns % (Auto) 7.2 % 04/22/23 16:00 Eos % (Auto) 0.4 % 04/22/23 16:00 Baso % (Auto) 0.8 % 04/22/23 16:00 Neut # (Auto) 9.88 10^3/uL (1.8-7.7) H 04/22/23 16:00 Lymph # (Auto) 4.7 10^3/uL (0.8-4.8) 04/22/23 16:00 Stearns # (Auto) 1.1 10^3/uL (0.2-0.9) H 04/22/23 16:00 Eos # (Auto) 0.1 10^3/uL (0.0-0.8) 04/22/23 16:00 Baso # (Auto) 0.1 10^3/uL (0.0-0.1) 04/22/23 16:00 Nucleated RBC % (auto) 0 % 04/22/23 16:00 Nucleated RBCs # 0.0 /100WBC 04/22/23 16:00 Specimen Type Arterial 04/22/23 19:31 Sample Site Radial, right 04/22/23 19:31 ABG pH 7.49 (7.35-7.45) H 04/22/23 19:31 ABG pCO2 34.3 mmHg (35-45) L 04/22/23 19:31 ABG pO2 87.3 mmHg (80.0-100.0) 04/22/23 19:31 ABG PO2/FiO2 Ratio 0 04/22/23 19:31 ABG HCO3 26.1 mmol/L (22-26) H 04/22/23 19:31 ABG O2 Saturation 97.6 04/22/23 19:31 ABG Base Excess 3.2 mmol/L (-2.0-2.0) H 04/22/23 19:31 [place] Test Pos 04/22/23 19:31 A-a O2 Gradient 2.4 mmHg (5-10) L 04/22/23 19:31 Hematocrit 47.4 % (42-52) 04/22/23 19:31 Hgb O2 Saturation 96.2 % (95-100) 04/22/23 19:31 Carboxyhemoglobin 1.1 %THgb (0.4-20.1) 04/22/23 19:31 Methemoglobin 0.3 % (0.4-1.5) L 04/22/23 19:31 Total Hemoglobin 15.5 g/dL (14-18) 04/22/23 19:31 Sodium 135.0 mmol/L (131-143) 04/22/23 19:31 Potassium 3.4 mmol/L (3.5-5.0) L 04/22/23 19:31 Glucose 96.0 mg/dL (70-115) 04/22/23 19:31 Ionized Calcium 1.1 mmol/L (1.1-1.4) 04/22/23 19:31 O2 Delivery Device Room air 04/22/23 19:31 FiO2 21.0 % 04/22/23 19:31 Plating Department Helper ID Monro 04/22/23 19:31 Sodium 135 mmol/L (136-145) L 04/22/23 16:00 Potassium 2.9 mmol/L (3.5-5.1) L 04/22/23 16:00 Chloride 85 mmol/L (98-107) L 04/22/23 16:00 Carbon Dioxide 9 mmol/L (22-29) L 04/22/23 16:00 Anion Gap 43.9 (5-19) H 04/22/23 16:00 BUN 10 mg/dL (6-20) 04/22/23 16:00 Creatinine 1.4 mg/dL (0.7-1.2) H 04/22/23 16:00 GFR Calculation 59.9 mL/min (90-130) L 04/22/23 16:00 Glucose 215 mg/dL (65-115) H 04/22/23 16:00 Calculated Osmolality 286 mOsm/kg (285-295) 04/22/23 16:00 Lactic Acid 4.5 mmol/L (0.5-2.2) H* 04/22/23 17:43 Calcium 9.9 mg/dL (8.5-10.5) 04/22/23 16:00 Total Bilirubin 1.2 mg/dL (0.15-1.2) 04/22/23 16:00 AST 81 U/L (0-40) H 04/22/23 16:00 ALT 59 U/L (0-41) H 04/22/23 16:00 Alkaline Phosphatase 100 U/L (40-130) 04/22/23 16:00 Ammonia 36 umol/L (16-60) 04/22/23 18:05 Total Protein 8.2 g/dL (6.6-8.7) 04/22/23 16:00 Albumin 4.9 g/dL (3.5-5.2) 04/22/23 16:00 Globulin 3.3 g/dL (1.3-4.6) 04/22/23 16:00 Urine Color Straw (Yellow) 04/22/23 16:41 Urine Appearance Clear (CLEAR) 04/22/23 16:41 Urine pH 5 (5-7) 04/22/23 16:41 Ur Specific [place] 1.020 (1.005-1.030) 04/22/23 16:41 Urine Protein 3+ (Negative) H 04/22/23 16:41 Urine Glucose (UA) Norm (Normal) 04/22/23 16:41 Urine Ketones 1+ (Negative) H 04/22/23 16:41 Urine Blood 3+ (Negative) H 04/22/23 16:41 Urine Nitrate Negative (Negative) 04/22/23 16:41 Urine Bilirubin Neg (Negative) 04/22/23 16:41 Urine Urobilinogen Norm mg/dL (Negative) 04/22/23 16:41 Ur Leukocyte Esterase Negative (Negative) 04/22/23 16:41 Urine RBC 5-10 /hpf (0-2) H 04/22/23 16:41 Urine WBC 0-4 /hpf (0-5) H 04/22/23 16:41 Ur Squamous Epith Cells None /hpf (0-5) 04/22/23 16:41 Amorphous Sediment Not Reportable 04/22/23 16:41 Urine Bacteria 1+ /hpf (NONE) H 04/22/23 16:41 Hyaline Casts 15-25 /lpf H 04/22/23 16:41 Urine Mucus 1+ /hpf 04/22/23 16:41 Salicylates < 0.3 mg/dL (3-10) L 04/22/23 16:00 Urine Opiates Screen Negative ng/mL (Negative) 04/22/23 16:41 Ur Barbiturates Screen Negative ng/mL (Negative) 04/22/23 16:41 Ur Phencyclidine Scrn Negative ng/mL (Negative) 04/22/23 16:41 Ur Amphetamines Screen Negative ng/mL (Negative) 04/22/23 16:41 U Benzodiazepines Scrn Positive ng/mL (Negative) H 04/22/23 16:41 Urine Cocaine Screen Negative ng/mL (Negative) 04/22/23 16:41 U Marijuana (THC) Screen Negative ng/mL (Negative) 04/22/23 16:41 Ethyl Alcohol < 10 mg/dL (0-10) 04/22/23 16:00 Serum Ketones Negative (Negative) 04/22/23 16:00 All radiology interpretation(s) finalized by discharge Critical Care Time Critical Care Time: Critical Care Time: Yes Total Critical Care Time: 75 Attestation: This case had a high probability of a clinically significant, sudden, or life threatening deterioration of this patient's condition which required my full and direct attention, intervention and personal management. Discharge Plan Discharge Patient Disposition: Admitted As Inpatient Clinical Impression: Metabolic acidosis Altered mental status Qualifiers: Altered mental status type: disorientation Qualified Code(s): R41.0 - Disorientation, unspecified Condition: Stable Coding Level of Care Code ED [facility] Dalila Hennessy
--- NOTE | 2023-04-22 16:30 | CTR_ITS ---
PROCEDURE INFORMATION: Exam: CT Head Without Contrast Exam date and time: 04/22/2023 4:48 PM Age: 28 years old Clinical indication: Other: Seizure; Additional info: Headache, episode of unresponsiveness, HX seizure and brain bleed. TECHNIQUE: Imaging protocol: Computed tomography of the head without contrast. Radiation optimization: All CT scans at this facility use at least one of these dose optimization techniques: automated exposure control; mA and/or kV adjustment per patient size (includes targeted exams where dose is matched to clinical indication); or iterative reconstruction. REPORTING DATA: Count of CT and Cardiac NM exams in prior 12 months: This patient has received 0 known CTs and 0 known cardiac nuclear medicine studies in the 12 months prior to the current study. COMPARISON: CT head wo con* [id number] 06/24/2021 4:08 PM RADIATION DOSE METRICS: Total DLP (mGy-cm): 1034.58 FINDINGS: Brain: Focal encephalomalacia left lateral temporal lobe. This was present on prior brain CT. There is mild parenchymal volume loss. No midline shift. No mass, acute infarct, hemorrhage, or extra-axial fluid collection. Cerebral ventricles: No ventriculomegaly. Paranasal sinuses: Visualized sinuses are unremarkable. No fluid levels. Mastoid air cells: Visualized mastoid air cells are well aerated. Bones/joints: Unremarkable. No acute fracture. Soft tissues: Unremarkable. CT/CT head wo con* [id number] IMPRESSION: No acute intracranial abnormality.
[2023-04-22 16:34] LABS: Basophils # 0.1 10^3/uL (0.0-0.1); Basophils % 0.8 %; Eosinophils # 0.1 10^3/uL (0.0-0.8); Eosinophils % 0.4 %; Hematocrit 50.5 % (37-53); Lymphocytes # 4.7 10^3/uL (0.8-4.8); Lymphocytes % 29.3 %; Mean Corpuscular HGB Conc 34.1 g/dL (30-55); Mean Corpuscular Hemoglobin 34.2 pg (27-33); Mean Corpuscular Volume 100.4 fl (82-101); Mean Platelet Volume 10.5 fL (7.4-10.4); Monocytes # 1.1 10^3/uL (0.2-0.9); Monocytes % 7.2 %; Neutrophils # 9.88 10^3/uL (1.8-7.7); Nucleated Red Blood Cells % 0 %; Platelet Count 299 10^3/cmm (157-399); Red Blood Count 5.03 10^6/uL (3.85-5.65); Red Cell Distribution Width 10.8 % (12.1-15.1); White Blood Count 15.93 10^3/uL (3.29-11.43)
[2023-04-22 16:52] LABS: Alanine Aminotransferase 59 U/L (0-41); Albumin Level 4.9 g/dL (3.5-5.2); Alkaline Phosphatase 100 U/L (40-130); Anion Gap 43.9 (5-19); Aspartate Amino Transferase 81 U/L (0-40); Blood Urea Nitrogen 10 mg/dL (6-20); Calcium 9.9 mg/dL (8.5-10.5); Chloride 85 mmol/L (98-107); Globulin 3.3 g/dL (1.3-4.6); Glomerular Filtration Rate 59.9 mL/min (90-130); Glucose 215 mg/dL (65-115); Osmolality Calculated 286 mOsm/kg (285-295); Sodium 135 mmol/L (136-145); Total Bilirubin 1.2 mg/dL (0.15-1.2); Total Protein 8.2 g/dL (6.6-8.7)
[2023-04-22 17:00] LABS: Alcohol Level < 10 mg/dL (0-10)
[2023-04-22 17:01] LABS: Carbon Dioxide 9 mmol/L (22-29); Potassium 2.9 mmol/L (3.5-5.1)
--- NOTE | 2023-04-22 17:12 | ECG_ITS ---
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 Measurements Intervals [place] Rate: 127 P: 73 CT: 137 QRS: 64 QRSD: 89 T: 60 QT: 315 QTc: 458 Interpretive Statements SINUS TACHYCARDIA ABNORMAL RHYTHM ECG Compared to ECG 10/31/2022 19:34:05 Sinus rhythm no longer present Electronically Signed On 04-22-2023 19:54:23 MULTIPLE PRESSURE RIVETER OPERATOR by Jaylyn Hirsch M.D. [email or web address]
[2023-04-22 17:25] LABS: Amphetamines Screen Urine Negative (Negative); Barbiturates Screen Urine Negative (Negative); Benzodiazepines Screen Urine Positive (Negative); Cocaine Screen Urine Negative (Negative); Opiate Screen Urine Negative (Negative); PCP Screen Urine Negative (Negative); THC Screen Urine Negative (Negative)
[2023-04-22 17:35] LABS: Ketone (Acetest) Serum Negative (Negative)
[2023-04-22 17:43] LABS: Add Urine Microscopic? YES; Bacteria Urine 1+ /hpf; Bilirubin Urine Neg (Negative); Blood Urine 3+ (Negative); Glucose Urine UA Norm (Normal); Ketones Urine 1+ (Negative); Leukocyte Esterase Urine Negative (Negative); Mucus Urine 1+ /hpf; Nitrate Urine Negative (Negative); Protein Urine 3+ (Negative); Urine Appearance Clear (CLEAR); Urine Color Straw (Yellow); Urobilinogen Urine Norm (Negative); WBC Urine 0-4 /hpf (0-5); pH Urine 5 (5-7)
[2023-04-22 17:44] LABS: Add Urine Culture? No; Hyaline Casts Urine 15-25 /lpf
[2023-04-22 17:45] LABS: Salicylate < 0.3 mg/dL (3-10)
[2023-04-22] MEDS: potassium phosphate (mEq K) 40 MEQ in sodium chloride 0.9% (100 ml) 100 ML 27.27 MEQ IV (17:54)
[2023-04-22] MEDS: sodium chloride 0.9% 1,000 ML 250 ML IV (17:54)
[2023-04-22] MEDS: potassium chloride ER 20 mEq Tablet 40 MEQ PO (18:00)
[2023-04-22 18:06] LABS: Lactic Sepsis W/Reflex 4.5 mmol/L (0.5-2.2)
[2023-04-22 18:28] LABS: Ammonia 36 umol/L (16-60)
[2023-04-22 19:33] LABS: Reflex Lactate Order REFLEX LACTIC ORDERD
[2023-04-22 19:44] LABS: ABG PCO2 34.3 mmHg (35-45); ABG PH Result 7.49 (7.35-7.45); Alveolar-Arterial Oxygen Gradi 2.4 mmHg (5-10); Arterial Blood Gas Hematocrit 47.4 % (42-52); Base Excess ABG 3.2 mmol/L (-2.0-2.0); Blood Gas Allen Test Pos; Blood Gas Operator Identificat MONRO; Blood Gas Sample Site Radial, right; Blood Gas Sample Type Arterial; Carboxyhemoglobin 1.1 %THgb (0.4-20.1); HCO3 ABG 26.1 mmol/L (22-26); HGB O2 Sat 96.2 % (95-100); Ionized Calcium Level - ABG 1.1 mmol/L (1.1-1.4); Methemoglobin 0.3 % (0.4-1.5); Oxygen Device ROOM AIR; Oxygen Saturation ABG 97.6; PO2 ABG 87.3 mmHg (80.0-100.0); PO2 FiO2 Ratio Arterial Blood 0; Potassium Level - ABG 3.4 mmol/L (3.5-5.0); Total Hemoglobin 15.5 g/dL (14-18)
[2023-04-22] MEDS: cefTRIAXone 1,000 MG in sodium chloride 0.9% (plus) 50 ML 100 MG IV (20:05)
[2023-04-22 20:16] LABS: Lactic Acid level (Lactate) 1.6 mmol/L (0.5-2.2)
--- NOTE | 2023-04-22 20:24 | P.HP_ITS ---
Providers/Chief Complaint 2 Admitting Physician: Paris Soria MD Primary Care Provider: Aneta Pack MD Chief Complaint: AMS History of Present Illness Aaron Bermeo is a 28 year old male with history of temporal lobe epilepsy, on antiepileptics, alcohol dependence, presented after syncopal event. Patient is stating that today when she was feeling his cars gas tank he felt weird, he could feel tingling sensation all over his extremities, He knew he was in an ambulance. In the ER he was diagnosed with severe metabolic acidosis, he was given antibiotics, blood cultures were taken, urine ketones negative, hypokalemia, lactic acidemia which has improved after IV fluid hydration, abnormal transaminases prolactin is high Patient is stating that he does drink beer every day, last alcohol consumption was yesterday evening, he normally drinks 6-8 beers a day, lives alone, not endorsing use of marijuana or methamphetamine As per Dr. Holman's recommendation MRI was ordered however it was on hold because of prior authorization Review of Systems 2 Const: Denies: fever(s) Eyes: Denies: change in vision ENMT: Denies: throat pain Card: Denies: chest pain Resp: Denies: dyspnea GI: Denies: abdominal pain : Denies: flank pain Musc: Denies: neck pain Skin/Breast: Denies: rash Medications/Allergies Home Medications Medication Instructions Recorded Confirmed Last Taken Type amlodipine 5 mg tablet 5 mg PO ONCE 90 days #90 tabs 05/17/22 01/04/23 Unknown Rx alprazolam 0.5 mg tablet 0.5 mg PO BID PRN anxiety 30 days 08/18/22 01/04/23 Unknown Rx #45 tabs diazepam 10 mg/spray (0.1 mL) 10 mg (0.1 mL) intranasal Q10M PRN 10/31/22 01/04/23 Unknown Rx nasal spray seizures #2 sprays divalproex 500 mg tablet,extended 1,000 mg (2 x 500 mg) PO DAILY #60 11/21/22 01/04/23 Unknown Rx release 24 hr (Depakote ER) tabs levetiracetam 750 mg 1,500 mg (2 x 750 mg) PO DAILY #60 11/21/22 01/04/23 Unknown Rx tablet,extended release 24 hr tabs (Keppra XR) Allergies Allergy/AdvReac Type Severity Reaction Status Date / Time seafood Allergy itching Uncoded 04/22/23 16:29 PFSH Acute 2 PFSH: Medical History Thoracic and lumbosacral neuritis Back pain Compression fracture of vertebra Depression Seizure Insomnia Anxiety Surgical History No pertinent past surgical history Family History Other CAD (coronary artery disease) Cancer Social History Smoking and tobacco/nicotine status: current every day tobacco/nicotine user smokeless tobacco Alcohol intake: current Alcohol intake frequency: holidays/special occasions only Substance/Drug Use: never Housing: House Vitals/I&O/Wt Last Vital Signs Temp 98.6 F 04/22/23 16:20 Pulse 107 H 04/22/23 18:19 Resp 18 04/22/23 18:19 BP 141/96 04/22/23 18:40 Pulse Ox 97 04/22/23 18:40 O2 Del Method Room Air 04/22/23 18:40 04/22/23 04/22/23 04/22/23 06:59 14:59 22:59 Intake Total 1065.448 / 1065.448 Balance 1065.448 / 1065.448 Weight last 48 hrs Weight 77.111 kg Physical Exam 2 Narrative: Awake and alert Dehydrated GCS 15 Pleasant and cooperative No active seizure Hemodynamically stable Currently on room air Nonfocal neuroexam S1, S2 Tachycardia Data 04/22/23 16:00 04/22/23 16:00 Micro: Microbiology 04/22/23 19:49 Blood Culture - Preliminary Blood SPECIMEN COLLECTED 04/22/23 19:49 Blood Culture - Preliminary Blood SPECIMEN COLLECTED A&P Assessment and plan (1) Alcoh dep NEC/NOS, unspec: (2) Essential hypertension: (3) Dehydration: (4) KIMBERLY (acute kidney injury): (5) Metabolic acidosis: (6) Altered mental status: Qualifiers: Altered mental status type: disorientation Qualified Code(s): R41.0 - Disorientation, unspecified (7) Seizure: (8) Temporal lobe epilepsy: (9) Compression fracture of vertebra: Qualifiers: Encounter type: subsequent encounter Fracture of vertebra location: l umbar Lumbar vertebra fracture level: unspecified lumbar vertebra Fracture healing: with routine healing Qualified Code(s): S32.000D - Wedge compression fracture of unspecified lumbar vertebra, subsequent encounter for fracture with routine healing Plan Breakthrough seizure I will give him IV Keppra Check Depakote and Keppra levels Will do MRI head in the morning Prolactin is high Altered mental status was likely related to postictal confusion I will keep him on CIWA protocol Admit to ICU Severe metabolic acidosis due to lactic acidemia Patient is not diabetic Will discontinue bicarb drip as potassium is extremely low at 2 point KIMBERLY related to dehydration Continue IV fluid hydration Alcohol abuse, add CIWA protocol Full code Cardiac diet DVT prophylaxis on board Review of records revealed that patient was seen by neurologist Dr. Holman who recommended head MRI Self interpretation of EKG, sinus tachycardia, Will request D-dimer Attestations 2 Medical Necessity Statement*: Anticipating discharge within 48 hours Will need monitoring in ICU for breakthrough seizures and to follow-up epilepsy which could become intractable he may require intubation if that is the case, Diagnoses Alcoh dep NEC/NOS, unspec F10.20 Essential hypertension I10 Dehydration E86.0 KIMBERLY (acute kidney injury) N17.9 Metabolic acidosis E87.20 Altered mental status R41.0 Altered mental status type: disorientation Seizure R56.9 Temporal lobe epilepsy G40.109 Compression fracture of lumbar vertebra with routine healing, unspecified lumbar vertebral level, subsequent encounter S32.000D Encounter type: subsequent encounter Fracture of vertebra location: lumbar Lumbar vertebra fracture level: unspecified lumbar vertebra Fracture healing: with routine healing
[2023-04-22 20:40] LABS: Prolactin 73.56 ng/mL (4.0-15.2)
[2023-04-22 21:17] LABS: D Dimer 9.33 ug/mLFEU (0-0.59)
[2023-04-22] MEDS: acetaminophen 500 mg Tablet PO (21:53)
[2023-04-22] MEDS: magnesium oxide 400 mg tablet PO (21:53)
[2023-04-22] MEDS: sodium chlor 0.9% + KCl 20 mEq 20 MEQ/1,000 ML BAG 100 MEQ IV (21:57)
[2023-04-22] MEDS: enoxaparin 40 mg/0.4 mL Syringe SUBCUT (21:58)
[2023-04-22] MEDS: levETIRAcetam 1,000 MG/100 ML PREMIX 400 MG IV (22:03)
--- NOTE | 2023-04-22 22:30 | PC.NURSE ---
Arrival to ICU 10: Pt arrived to ICU 10 from ER via stretcher @0229. Pt is A&Ox2 on arrival but after about an hour was able to answer all orientation questions correctly. Pt refused a full body skin assessment and reports that he has no open wounds. Pt reported that he can usually tell when he is fixing to have a seizure, stating that something feels off . Pt was educated to notify nursing staff if he has that feeling.
[2023-04-22 22:35] LABS: Thyroid Stimulating Hormone 1.67 uIU/mL (0.27-4.20)
[2023-04-22 22:50] LABS: Valproic Acid Level < 2.8 ug/mL (50-100)
[2023-04-23] VITALS (33 sets, daily range): BP systolic 105–142; BP diastolic 67–95; PULSE 54–100; RESP 10–24; TEMP 36.2–37.9; O2SAT 95–99
[2023-04-23 01:53] LABS: Vitamin B12 423 pg/mL (232-1245)
[2023-04-23] MEDS: acetaminophen 500 mg Tablet PO ×2 (04:09→15:43)
[2023-04-23 04:32] LABS: Basophils # 0.1 10^3/uL (0.0-0.1); Basophils % 0.9 %; Eosinophils # 0.1 10^3/uL (0.0-0.8); Eosinophils % 1.6 %; Hematocrit 38.9 % (37-53); Lymphocytes # 1.9 10^3/uL (0.8-4.8); Lymphocytes % 25.1 %; Mean Corpuscular HGB Conc 35.7 g/dL (30-55); Mean Corpuscular Hemoglobin 34.6 pg (27-33); Mean Corpuscular Volume 96.8 fl (82-101); Mean Platelet Volume 10.2 fL (7.4-10.4); Monocytes # 0.7 10^3/uL (0.2-0.9); Monocytes % 9.4 %; Neutrophils # 4.72 10^3/uL (1.8-7.7); Neutrophils % 62.9 %; Nucleated Red Blood Cells % 0 %; Platelet Count 164 10^3/cmm (157-399); Red Blood Count 4.02 10^6/uL (3.85-5.65); White Blood Count 7.52 10^3/uL (3.29-11.43)
[2023-04-23 04:58] LABS: Anion Gap 11.4 (5-19); Blood Urea Nitrogen 11 mg/dL (6-20); Calcium 8.2 mg/dL (8.5-10.5); Carbon Dioxide 27 mmol/L (22-29); Chloride 105 mmol/L (98-107); Glomerular Filtration Rate 88.3 mL/min (90-130); Glucose 90 mg/dL (65-115); Magnesium 2.5 mg/dL (1.7-2.3); Osmolality Calculated 289 mOsm/kg (285-295); Phosphorus 3.5 mg/dL (2.5-4.5); Potassium 3.4 mmol/L (3.5-5.1); Sodium 140 mmol/L (136-145)
[2023-04-23 07:17] LABS: Glucose Point of Care 86 mg/dL (70-110)
--- NOTE | 2023-04-23 09:17 | NM_ITS ---
WS: [id number] NUCLEAR MEDICINE VENTILATION/PERFUSION LUNG SCAN HISTORY: abnormal ddimer COMPARISON: Chest radiograph 04/23/2023 and 04/18/2021 TECHNIQUE: Ventilation: 24.0 mCi of Technetium 99 DTPA aerosol inhaled. Perfusion: 4.5 mCi of technetium 99m MAA IV. Normal perfusion. There are no wedge-shaped defects or artifacts. No unmatched or matched defects. IMPRESSION: Normal VQ scan.
[2023-04-23] MEDS: potassium chloride ER 20 mEq Tablet PO (09:25)
[2023-04-23] MEDS: multivitamin therapeutic Tablet 1 TAB PO (09:25)
[2023-04-23] MEDS: folic acid 1 mg Tablet PO (09:25)
[2023-04-23] MEDS: magnesium oxide 400 mg tablet PO ×2 (09:25→17:10)
[2023-04-23] MEDS: divalproex ER 500 mg Tablet (24H) 1000 MG PO (09:25)
[2023-04-23] MEDS: sodium chlor 0.9% + KCl 20 mEq 20 MEQ/1,000 ML BAG 100 MEQ IV (09:25)
[2023-04-23] MEDS: thiamine 100 mg Tablet PO (09:25)
[2023-04-23] MEDS: levETIRAcetam 1,000 MG/100 ML PREMIX 400 MG IV ×2 (09:31→21:20)
--- NOTE | 2023-04-23 16:20 | XRR_ITS ---
PROCEDURE INFORMATION: Exam: XR Chest Exam date and time: 04/23/2023 6:57 PM Age: 28 years old Clinical indication: Fever TECHNIQUE: Imaging protocol: Radiologic exam of the chest. Views: 1 view. COMPARISON: CR XR chest 1V portable [id number] 04/18/2021 11:52 PM FINDINGS: Lungs: No consolidation. Pleural spaces: No pleural effusion. No pneumothorax. Heart/Mediastinum: No cardiomegaly. Bones/joints: Unremarkable. Intraperitoneal space: There is no free intraperitoneal air. XR/XR chest 1V portable [id number] IMPRESSION: No acute cardiopulmonary disease.
[2023-04-23 17:07] LABS: SARS Covid-2 Antigen negative (Negative)
[2023-04-23 17:08] LABS: Influenza A by IFA negative (Negative); Influenza B by IFA negative (Negative)
--- NOTE | 2023-04-23 17:15 | P.PN_ITS ---
Subjective 2 Subjective: He reports he is feeling better today. Has had no recurrence of seizure. Denies chest pain or pressure. Denies trouble breathing. States that he had run out of his medications over the last 3 weeks or so, has not been able to take them including anticonvulsants. He also states that he had increased alcohol intake. Later in the day having a low-grade fever. Reporting some headache. Vitals/I&O/Wt Last Vital Signs Temp 99.3 F 04/23/23 16:41 Pulse 54 L 04/23/23 16:00 Resp 13 04/23/23 12:00 BP 126/84 04/23/23 14:00 Pulse Ox 99 04/23/23 16:00 O2 Del Method Room Air 04/23/23 09:53 04/23/23 04/23/23 04/23/23 06:59 14:59 22:59 Intake Total 800 / 2270.448 775 / 775 240 / 1015 Output Total 525 / 525 Balance 275 / 1745.448 775 / 775 240 / 1015 Weight last 48 hrs Weight 72.484 kg Weight 77.111 kg Physical Exam 2 Const: COMMON NORMALS: patient oriented x3 and alert GENERAL APPEARANCE: c ooperative ORIENTATION/CONSCIOUSNESS: Yes awake HENMT: COMMON NORMALS: oropharynx normal Neck/C-Spine: COMMON NORMALS: no JVD Resp: COMMON NORMALS: normal respiratory effort and clear to auscultation bilaterally AUSCULTATION: clear to auscultation bilaterally Cardio: COMMON NORMALS: no JVD, regular rhythm, S1 normal heart sound present, S2 normal heart sound present and No murmurs present (Cardio) RHYTHM: regular rhythm HEART SOUNDS: S1 normal heart sound present and S2 normal heart sound present GI: COMMON NORMALS: Normal to inspection, nondistended, normoactive bowel sounds present, Soft to palpation and non-tender PALPATION: Yes Soft to palpation Extremity: COMMON NORMALS: no joint enlargement and no pedal edema Neuro: COMMON NORMALS: patient oriented x3 and moves all extremities S ENSORIUM/ORIENTATION: Yes alert Skin: COMMON NORMALS: no rashes or lesions noted GENERAL SKIN EXAM: no rashes or lesions noted Data 04/23/23 03:56 04/23/23 03:56 Micro: Microbiology 04/22/23 19:49 Blood Culture - Preliminary Blood SPECIMEN COLLECTED 04/22/23 19:49 Blood Culture - Preliminary Blood SPECIMEN COLLECTED A&P Assessment and plan (1) Alcoh dep NEC/NOS, unspec: (2) Essential hypertension: (3) Dehydration: (4) KIMBERLY (acute kidney injury): (5) Metabolic acidosis: (6) Altered mental status: Qualifiers: Altered mental status type: disorientation Qualified Code(s): R41.0 - Disorientation, unspecified (7) Seizure: (8) Temporal lobe epilepsy: (9) Compression fracture of vertebra: Qualifiers: Encounter type: subsequent encounter Fracture of vertebra location: l umbar Lumbar vertebra fracture level: unspecified lumbar vertebra Fracture healing: with routine healing Qualified Code(s): S32.000D - Wedge compression fracture of unspecified lumbar vertebra, subsequent encounter for fracture with routine healing Plan Breakthrough seizure Without recurrence so far. He states that he had run out of his medications. Will need refills. Reinforced with him to make sure to contact his physicians office before he runs out of medications to make sure he gets refills in time to avoid recurrence of seizure, discussed risk of recurrent seizure. Has undergone had MRI, reviewed results, discussed with him noted prior CVA. He reports being aware of it. Possibly this is the focus of his seizures with left temporal lobe prior CVA. Transferred to medical surgical floor. Continue observation for now given fever, risk for alcohol withdrawal. Follow-up with neurology after discharge. Elevated D-dimer: D-dimer obtained overnight noted elevated, at 9.3. Additional assessment requested with VQ scan, still pending. Fever: Later in the afternoon low-grade fever 100.3 Fahrenheit. Reviewed vitals, CBC, ABG, CMP, UA, noted without leukocytosis. Possible aspiration during seizure. Requesting chest x-ray. Requested respiratory viral panel, although currently there is a shortage. Requested rapid influenza and COVID. Reassess. Will repeat CBC. Monitor oxygenation. EtOH use disorder: Discussed with him EtOH lowers seizure threshold. He states that nowadays he may have several beers, avoids hard liquor, denies recreational drug use. States understanding he should avoid alcohol entirely. Discussed consideration of rehabilitation. Discussed with case management to offer options. Monitor for withdrawal. Severe metabolic acidosis due to lactic acidemia Patient is not diabetic Hypokalemia: Repleted replacement. Follow-up chemistry requested. KIMBERLY related to dehydration: Reviewed renal function, KIMBERLY resolved. Stop IV fluid. Full code Cardiac diet DVT prophylaxis on board Review of records revealed that patient was seen by neurologist Dr. Holman who recommended head MRI. Attestations 2 Medical Necessity Statement*: Continue admission for additional assessment following breakthrough seizure, with fever, elevated D-dimer. Risk of alcohol withdrawal. and High MDM includes amount and/or complexity of data reviewed/ordered [ resulted lab(s)/test(s) and other healthcare professional discussion] as documented Diagnoses Alcoh dep NEC/NOS, unspec F10.20 Essential hypertension I10 Dehydration E86.0 KIMBERLY (acute kidney injury) N17.9 Metabolic acidosis E87.20 Altered mental status R41.0 Altered mental status type: disorientation Seizure R56.9 Temporal lobe epilepsy G40.109 Compression fracture of lumbar vertebra with routine healing, unspecified lumbar vertebral level, subsequent encounter S32.000D Encounter type: subsequent encounter Fracture of vertebra location: lumbar Lumbar vertebra fracture level: unspecified lumbar vertebra Fracture healing: with routine healing
--- NOTE | 2023-04-23 19:00 | MR_ITS ---
WS: [id number] MRI BRAIN WITHOUT CONTRAST HISTORY: epilepsy COMPARISON: CT head 04/22/2023 TECHNIQUE: Diffusion imaging, multiplanar T1, T2 and FLAIR imaging obtained. No evidence for acute infarct or hemorrhage. Mark-white matter differentiation is normal. Encephalomalacia LEFT temporal lobe with gliosis. No hemorrhage is identified. The hippocampal format ions appear symmetric. There is a small amount of increased CSF surrounding the LEFT hippocampus but this is related to the prior infarct. Ventricles and extra-axial spaces are normal. No inferior displacement of cerebellar tonsils. The sella turcica and pituitary gland are unremarkabl e. Dural venous sinuses and [place] of [place] demonstrate no abnormality on this unenhanced studies. Paranasal sinuses: Mild mucoperiosteal thickening in the paranasal sinuses. Mastoid air cells: Normal. Calvarium and scalp: Intact. IMPRESSION: 1. No acute hemorrhage or infarct. Diffusion imaging is normal. 2. Remote infarct with encephalomalacia in the LEFT temporal lobe. No interval change.
[2023-04-24] VITALS (7 sets, daily range): BP systolic 111–142; BP diastolic 71–83; PULSE 53–103; RESP 15–17; TEMP 36.4–36.9; O2SAT 96–99
--- NOTE | 2023-04-24 01:37 | PC.NURSE ---
Report called to Sindy on [facility].
[2023-04-24 06:46] LABS: Basophils # 0.1 10^3/uL (0.0-0.1); Basophils % 1.2 %; Eosinophils # 0.4 10^3/uL (0.0-0.8); Eosinophils % 6.2 %; Hematocrit 41.4 % (37-53); Lymphocytes # 1.8 10^3/uL (0.8-4.8); Lymphocytes % 31.7 %; Mean Corpuscular HGB Conc 34.5 g/dL (30-55); Mean Corpuscular Hemoglobin 34.1 pg (27-33); Mean Corpuscular Volume 98.8 fl (82-101); Mean Platelet Volume 10.7 fL (7.4-10.4); Monocytes # 0.5 10^3/uL (0.2-0.9); Monocytes % 8.5 %; Neutrophils # 2.96 10^3/uL (1.8-7.7); Neutrophils % 52.2 %; Nucleated Red Blood Cells % 0 %; Platelet Count 141 10^3/cmm (157-399); Red Blood Count 4.19 10^6/uL (3.85-5.65); Red Cell Distribution Width 11.1 % (12.1-15.1); White Blood Count 5.67 10^3/uL (3.29-11.43)
[2023-04-24 07:05] LABS: Alanine Aminotransferase 35 U/L (0-41); Albumin Level 3.7 g/dL (3.5-5.2); Alkaline Phosphatase 65 U/L (40-130); Anion Gap 11.9 (5-19); Aspartate Amino Transferase 44 U/L (0-40); Blood Urea Nitrogen 6 mg/dL (6-20); Calcium 8.5 mg/dL (8.5-10.5); Carbon Dioxide 26 mmol/L (22-29); Chloride 104 mmol/L (98-107); Globulin 2.4 g/dL (1.3-4.6); Glomerular Filtration Rate 114.3 mL/min (90-130); Glucose 92 mg/dL (65-115); Osmolality Calculated 283 mOsm/kg (285-295); Potassium 3.9 mmol/L (3.5-5.1); Sodium 138 mmol/L (136-145); Total Bilirubin 0.6 mg/dL (0.15-1.2); Total Protein 6.1 g/dL (6.6-8.7)
--- NOTE | 2023-04-24 07:52 | PC.SOCIAL ---
Rehab information given to patient
--- NOTE | 2023-04-24 07:53 | PC.SOCIAL ---
Social Service: Added [facility] walk in and Crisis Stabilization to DC plan @ this time.
--- NOTE | 2023-04-24 08:46 | P.DS_ITS ---
Discharge Providers Date of Admission: 04/22/23 21:24 Date of Discharge: April 24, 2023 Attending Provider at Admission: Paris Soria MD Attending Provider at Discharge: Michael Petty Primary Care Provider: Aneta Pack MD Diagnoses at Discharge Discharge Diagnosis (1) Alcoh dep NEC/NOS, unspec: Status: Acute (2) Essential hypertension: Status: Acute (3) Dehydration: Status: Acute (4) KIMBERLY (acute kidney injury): Status: Acute (5) Metabolic acidosis: Status: Acute (6) Altered mental status: Status: Acute Qualifiers: Altered mental status type: disorientation Qualified Code(s): R41.0 - Disorientation, unspecified (7) Seizure: Status: Acute (8) Temporal lobe epilepsy: Status: Acute (9) Compression fracture of vertebra: Status: Acute Qualifiers: Encounter type: subsequent encounter Fracture healing: with routine healing Fracture of vertebra location: lumbar Lumbar vertebra fracture level: unspecified lumbar vertebra Qualified Code(s): S32.000D - Wedge compression fracture of unspecified lumbar vertebra, subsequent encounter for fracture with routine healing Reason for Visit Reason for Visit: AMS Hospital Course Hospital Course Pleasant 28-year-old gentleman with history of temporal lobe epilepsy, alcohol use disorder, chronic back pain, smoking, was admitted for assessment management due to altered mental status after breakthrough seizure. He received a dose of IV Keppra, Depakote and Keppra levels were sent out. Prolactin was not high. D-dimer noted abnormal on presentation, followed up with VQ scan which was unremarkable. She did have a low-grade fever, possibly secondary to mild aspiration, no melodie pneumonitis noted on chest x-ray, he was saturating well on room air. His mental status recovered, he did report that he had run out of his medications over the last 3 weeks or so. Discussed with him risks with recurrent seizure, educated to make sure to seek medication refills before they run out which he intends to do. Additionally discussed with him alcohol abstinence, risk of lowered seizure threshold with EtOH. Additionally discussed with case management who provided him with options for rehabilitation. Presentation with severe metabolic acidosis, KIMBERLY, both resolved, received some IV hydration. No recurrence of fever. Respiratory viral panel was sent out and still pending, her, he is feeling well today, without any further issues, wanted to return home and is discharging with refills for Keppra, Depakote, as well as amlodipine, and follow-up. MRI of the brain performed after admission showed old left temporal lobe CVA wi th encephalomalacia, unchanged from prior. Continue to reinforce abstaining from EtOH, encourage smoking cessation, good adherence with medications. Physical Exam Narrative: He is awake, alert. States he is feeling very well. Ready to return home. Const: COMMON NORMALS: patient oriented x3 and alert GENERAL APPEARANCE: cooperative ORIENTATION/CONSCIOUSNESS: Yes awake HENMT: COMMON NORMALS: oropharynx normal Neck/C-Spine: COMMON NORMALS: no JVD Resp: COMMON NORMALS: normal respiratory effort and clear to auscultation bilaterally AUSCULTATION: clear to auscultation bilaterally Cardio: COMMON NORMALS: no JVD, regular rhythm, S1 normal heart sound present, S2 normal heart sound present and No murmurs present (Cardio) RHYTHM: regular rhythm HEART SOUNDS: S1 normal heart sound present and S2 normal heart sound present GI: COMMON NORMALS: Normal to inspection, nondistended, normoactive bowel sounds present, Soft to palpation and non-tender PALPATION: Yes Soft to palpation Extremity: COMMON NORMALS: no joint enlargement and no pedal edema Neuro: COMMON NORMALS: patient oriented x3 and moves all extremities SENSORIUM/ORIENTATION: Yes alert Skin: COMMON NORMALS: no rashes or lesions noted GENERAL SKIN EXAM: no rashes or lesions noted Discharge Data Studies Completed and Pending Completed Studies During Hospitalization Category Date Time Status CT head wo con* [id number] Stat Cat Scan 04/22/23 16:30 Completed CXRP [XR chest 1V portable [id number]] Routine Exams 04/23/23 16:20 Completed MR head wo con* [id number] Routine MRI 04/23/23 19:00 Completed NM pulmonary ventilation and perfusion [NM pul vent and Nuc Med 04/23/23 09:17 Completed perfus* [id number]] Routine Pending at discharge Category Date Time Status Blood Culture Stat Lab 04/22/23 19:49 Results KEPPRA [Levetiracetam Immunoassy] Routine Lab 04/22/23 20:10 Received Respiratory Panel 2 Routine Lab 04/23/23 21:15 Received Radiology Impressions Head CT 04/22/23 16:30 IMPRESSION: No acute intracranial abnormality. Chest X-Ray 04/23/23 16:20 IMPRESSION: No acute cardiopulmonary disease. Laboratory Results WBC 5.67 10^3/uL (3.29-11.43) 04/24/23 06:12 RBC 4.19 10^6/uL (3.85-5.65) 04/24/23 06:12 Hgb 14.30 g/dL (11.27-16.99) 04/24/23 06:12 Hct 41.4 % (37-53) 04/24/23 06:12 MCV 98.8 fl (82-101) 04/24/23 06:12 MCH 34.1 pg (27-33) H 04/24/23 06:12 MCHC 34.5 g/dL (30-55) 04/24/23 06:12 RDW 11.1 % (12.1-15.1) L 04/24/23 06:12 Plt Count 141 10^3/cmm (157-399) L 04/24/23 06:12 MPV 10.7 fL (7.4-10.4) H 04/24/23 06:12 Neut % (Auto) 52.2 % 04/24/23 06:12 Lymph % (Auto) 31.7 % 04/24/23 06:12 [place] % (Auto) 8.5 % 04/24/23 06:12 Eos % (Auto) 6.2 % 04/24/23 06:12 Baso % (Auto) 1.2 % 04/24/23 06:12 Neut # (Auto) 2.96 10^3/uL (1.8-7.7) 04/24/23 06:12 Lymph # (Auto) 1.8 10^3/uL (0.8-4.8) 04/24/23 06:12 [place] # (Auto) 0.5 10^3/uL (0.2-0.9) 04/24/23 06:12 Eos # (Auto) 0.4 10^3/uL (0.0-0.8) 04/24/23 06:12 Baso # (Auto) 0.1 10^3/uL (0.0-0.1) 04/24/23 06:12 Nucleated RBC % (auto) 0 % 04/24/23 06:12 Nucleated RBCs # 0.0 /100WBC 04/24/23 06:12 D-Dimer 9.33 ug/mLFEU (0-0.59) H 04/22/23 16:00 Specimen Type Arterial 04/22/23 19:31 Sample Site Radial, right 04/22/23 19:31 ABG pH 7.49 (7.35-7.45) H 04/22/23 19:31 ABG pCO2 34.3 mmHg (35-45) L 04/22/23 19:31 ABG pO2 87.3 mmHg (80.0-100.0) 04/22/23 19:31 ABG PO2/FiO2 Ratio 0 04/22/23 19:31 ABG HCO3 26.1 mmol/L (22-26) H 04/22/23 19:31 ABG O2 Saturation 97.6 04/22/23 19:31 ABG Base Excess 3.2 mmol/L (-2.0-2.0) H 04/22/23 19:31 [place] Test Pos 04/22/23 19:31 A-a O2 Gradient 2.4 mmHg (5-10) L 04/22/23 19:31 Hematocrit 47.4 % (42-52) 04/22/23 19:31 Hgb O2 Saturation 96.2 % (95-100) 04/22/23 19:31 Carboxyhemoglobin 1.1 %THgb (0.4-20.1) 04/22/23 19:31 Methemoglobin 0.3 % (0.4-1.5) L 04/22/23 19:31 Total Hemoglobin 15.5 g/dL (14-18) 04/22/23 19:31 Sodium 135.0 mmol/L (131-143) 04/22/23 19:31 Potassium 3.4 mmol/L (3.5-5.0) L 04/22/23 19:31 Glucose 96.0 mg/dL (70-115) 04/22/23 19:31 Ionized Calcium 1.1 mmol/L (1.1-1.4) 04/22/23 19:31 O2 Delivery Device Room air 04/22/23 19:31 FiO2 21.0 % 04/22/23 19:31 Senior Communications Engineer ID [place] 04/22/23 19:31 Sodium 138 mmol/L (136-145) 04/24/23 06:12 Potassium 3.9 mmol/L (3.5-5.1) 04/24/23 06:12 Chloride 104 mmol/L (98-107) 04/24/23 06:12 Carbon Dioxide 26 mmol/L (22-29) 04/24/23 06:12 Anion Gap 11.9 (5-19) 04/24/23 06:12 BUN 6 mg/dL (6-20) 04/24/23 06:12 Creatinine 0.8 mg/dL (0.7-1.2) 04/24/23 06:12 GFR Calculation 114.3 mL/min (90-130) 04/24/23 06:12 Glucose 92 mg/dL (65-115) 04/24/23 06:12 POC Glucose 86 mg/dL (70-110) 04/23/23 07:10 Calculated Osmolality 283 mOsm/kg (285-295) L 04/24/23 06:12 Lactic Acid 4.5 mmol/L (0.5-2.2) H* 04/22/23 17:43 Lactic Acid (Sepsis) 1.6 mmol/L (0.5-2.2) 04/22/23 19:49 Calcium 8.5 mg/dL (8.5-10.5) 04/24/23 06:12 Phosphorus 3.5 mg/dL (2.5-4.5) 04/23/23 03:56 Magnesium 2.5 mg/dL (1.7-2.3) H 04/23/23 03:56 Total Bilirubin 0.6 mg/dL (0.15-1.2) 04/24/23 06:12 AST 44 U/L (0-40) H 04/24/23 06:12 ALT 35 U/L (0-41) 04/24/23 06:12 Alkaline Phosphatase 65 U/L (40-130) 04/24/23 06:12 Ammonia 36 umol/L (16-60) 04/22/23 18:05 C-Reactive Protein 4.0 mg/L (0.0-4.9) 04/23/23 03:56 Total Protein 6.1 g/dL (6.6-8.7) L 04/24/23 06:12 Albumin 3.7 g/dL (3.5-5.2) 04/24/23 06:12 Globulin 2.4 g/dL (1.3-4.6) 04/24/23 06:12 Vitamin B12 423 pg/mL (232-1245) 04/22/23 20:10 TSH 1.67 uIU/mL (0.27-4.20) 04/22/23 20:10 Prolactin 73.56 ng/mL (4.0-15.2) H 04/22/23 20:10 Urine Color Straw (Yellow) 04/22/23 16:41 Urine Appearance Clear (CLEAR) 04/22/23 16:41 Urine pH 5 (5-7) 04/22/23 16:41 Ur Specific [place] 1.020 (1.005-1.030) 04/22/23 16:41 Urine Protein 3+ (Negative) H 04/22/23 16:41 Urine Glucose (UA) Norm (Normal) 04/22/23 16:41 Urine Ketones 1+ (Negative) H 04/22/23 16:41 Urine Blood 3+ (Negative) H 04/22/23 16:41 Urine Nitrate Negative (Negative) 04/22/23 16:41 Urine Bilirubin Neg (Negative) 04/22/23 16:41 Urine Urobilinogen Norm mg/dL (Negative) 04/22/23 16:41 Ur Leukocyte Esterase Negative (Negative) 04/22/23 16:41 Urine RBC 5-10 /hpf (0-2) H 04/22/23 16:41 Urine WBC 0-4 /hpf (0-5) H 04/22/23 16:41 Ur Squamous Epith Cells None /hpf (0-5) 04/22/23 16:41 Amorphous Sediment Not Reportable 04/22/23 16:41 Urine Bacteria 1+ /hpf (NONE) H 04/22/23 16:41 Hyaline Casts 15-25 /lpf H 04/22/23 16:41 Urine Mucus 1+ /hpf 04/22/23 16:41 Salicylates < 0.3 mg/dL (3-10) L 04/22/23 16:00 Urine Opiates Screen Negative ng/mL (Negative) 04/22/23 16:41 Ur Barbiturates Screen Negative ng/mL (Negative) 04/22/23 16:41 Valproic Acid < 2.8 ug/mL (50-100) L 04/22/23 20:10 Ur Phencyclidine Scrn Negative ng/mL (Negative) 04/22/23 16:41 Ur Amphetamines Screen Negative ng/mL (Negative) 04/22/23 16:41 U Benzodiazepines Scrn Positive ng/mL (Negative) H 04/22/23 16:41 Urine Cocaine Screen Negative ng/mL (Negative) 04/22/23 16:41 U Marijuana (THC) Screen Negative ng/mL (Negative) 04/22/23 16:41 Ethyl Alcohol < 10 mg/dL (0-10) 04/22/23 16:00 Serum Ketones Negative (Negative) 04/22/23 16:00 Influenza Type A Ag negative (Negative) 04/23/23 16:36 Influenza Type B Ag negative (Negative) 04/23/23 16:36 SARS-CoV-2 Ag (Rapid) negative (Negative) 04/23/23 16:36 Vitals Last Vital Signs Temp 98.3 F 04/24/23 07:45 Pulse 103 H 04/24/23 08:41 Resp 16 04/24/23 08:41 BP 119/79 04/24/23 07:45 Pulse Ox 99 04/24/23 08:41 O2 Del Method Room Air 04/24/23 08:41 Discharge Plan Discharge Patient Disposition: Home Condition: Stable Prescriptions: Continued alprazolam 0.5 mg tablet 0.5 mg PO BID PRN (Reason: anxiety) 30 Days Qty: 45 2RF acetaminophen 500 mg Tablet 1,000 mg PO Q6H PRN (Reason: Pain) potassium gluconate 595 mg (99 mg) Tablet 1,190 mg PO QAM Depakote ER 500 mg tablet extended release 24 hr 1,000 mg PO DAILY Qty: 180 5RF Keppra XR 750 mg tablet extended release 24 hr 1,500 mg PO DAILY Qty: 180 5RF Changed amlodipine 5 mg tablet 5 mg PO QAM PRN (Reason: Hypertension) Qty: 90 0RF Rx Instructions: Blood pressure over 130 systolic or 90 diastolic Discharge Orders: Discharge Order (Routine); Ordered 04/24/23 Ordered By: Michael Petty Referrals: Crisis Stabilization [Other] (7 days/week 8am-6pm. ) [facility] Behavioral Health Care [Outside] (?Follow up as a walk in at [facility], walk in hours are Sunday-Sunday from 7:30AM-3:00PM, first come, first seen. Once you do this assessment you will be referred for appropriate services.) Katerina Holman MD [Physician] - 05/30/23 2:15 pm (Breakthrough seizures) Aneta Pack MD [Primary Care Provider] - 05/03/23 10:30 am Patient Instructions: Amlodipine (By mouth), Epilepsy (GEN), Alcohol Use Disorder (GEN) Activity Restrictions/Additional Instructions: You are given refill on your medications including seizure medications and amlodipine. Please resume antiseizure medications. Please remember to contact your doctors office if you are going to run out of medications/needing a refill at of time. Please abstain from any alcohol as alcohol increases risk of recurrence of seizures by lowering seizure threshold in addition to other adverse effects as discussed. Follow-up with neurology in office. Your MRI brain showed an old stroke and consequent encephalomalacia/scarring in the left temporal lobe, unchanged from before. Your VQ scan was normal, not suggestive of pulmonary emboli. Chest x-ray was unremarkable. If you experience any worsening or new concerning symptoms, seek medical attention. Your viral panel is still pending. Discharge Attestations Time Spent in Discharge Care*: greater than 30 min Quality Metrics Clinical Quality Measures [ No reported AMI, CVA or VTE this stay] Coding Level of Care Code 92531 Total time (in minutes) for Discharge: 40 Diagnoses Alcoh dep NEC/NOS, unspec F10.20 Essential hypertension I10 Dehydration E86.0 KIMBERLY (acute kidney injury) N17.9 Metabolic acidosis E87.20 Altered mental status R41.0 Altered mental status type: disorientation Seizure R56.9 Temporal lobe epilepsy G40.109 Compression fracture of lumbar vertebra with routine healing, unspecified lumbar vertebral level, subsequent encounter S32.000D Encounter type: subsequent encounter Fracture healing: with routine healing Fracture of vertebra location: lumbar Lumbar vertebra fracture level: unspecified lumbar vertebra
[2023-04-24] MEDS: magnesium oxide 400 mg tablet PO (08:53)
[2023-04-24] MEDS: thiamine 100 mg Tablet PO (08:53)
[2023-04-24] MEDS: folic acid 1 mg Tablet PO (08:53)
[2023-04-24] MEDS: divalproex ER 500 mg Tablet (24H) 1000 MG PO (08:53)
[2023-04-24] MEDS: potassium chloride ER 20 mEq Tablet PO (08:53)
[2023-04-24] MEDS: multivitamin therapeutic Tablet 1 TAB PO (08:53)
[2023-04-24 10:15] LABS: Levetiracetam Immunoassy <2.0 mcg/mL (6.0-46.0)
[2023-04-24 16:38] LABS: Adenovirus Not Detected (NOT DETECT); Chlamydia Pneumoniae Not Detected (NOT DETECT); Coronavirus 229E,HKU1,NL63,OC4 Not Detected (NOT DETECT); Human Metapneumovirus Not Detected (NOT DETECT); Human Rhinovirus/Enterovirus Not Detected (NOT DETECT); Influenza A Not Detected (NOT DETECT); Influenza A H1 Not Detected (NOT DETECT); Influenza A H1-2009 Not Detected (NOT DETECT); Influenza A H3 Not Detected (NOT DETECT); Influenza B Not Detected (NOT DETECT); Mycoplasma Pneumoniae Not Detected (NOT DETECT); Parainfluenza Virus Type 1 Not Detected (NOT DETECT); Parainfluenza Virus Type 2 Not Detected (NOT DETECT); Parainfluenza Virus Type 3 Not Detected (NOT DETECT); Parainfluenza Virus Type 4 Not Detected (NOT DETECT); Respiratory Syncytial Virus A Not Detected (NOT DETECT); Respiratory Syncytial Virus B Not Detected (NOT DETECT); SARS-COV-2 Not Detected (NOT DETECT)
== END 2023-04-24 10:30 | disposition home or self-care (01) ==
LOC: ER 19:44 → ICU 04-23 06:58 → MEDSURG 04-24 01:46
PROVIDERS: Physician Assistant; Admitting Provider Internal Medicine; Emergency Provider Internal Medicine; PCP Family Medicine; Visit Provider Internal Medicine
DX: F10.20 Alcohol dependence, uncomplicated (principal); I10 Essential (primary) hypertension; E86.0 Dehydration; N17.9 Acute kidney failure, unspecified; E87.20 Acidosis, unspecified; R41.0 Disorientation, unspecified; G40.109 Localization-related (focal) (partial) symptomatic epilepsy and epileptic syndromes with simple partial seizures, not intractable, without status epilepticus; S32.000D Wedge compression fracture of unspecified lumbar vertebra, subsequent encounter for fracture with routine healing; X58.XXXD Exposure to other specified factors, subsequent encounter
CPT/HCPCS: 36415; 36416; 36600; 70450; 70551; 71045; 78014; 80048; 80051; 80053; 80164; 80177; 80306; 80307; 81001; 82009; 82140; 82330; 82607; 82805; 82962; 83605; 83735; 84100; 84146; 84443; 85025; 85378; 86140; 87040; 87426; 87486; 87581; 87633; 87804; 93005; 96365; 96366; 96367; 96372; 96376; 99285; A9540; A9567; G0378; J0696; J1650; J1953; J3411; J3480; J7030

== ENCOUNTER → 2023-05-03 11:40 | Outpatient (BNVA) | payer MEDICAID, SELFPAY | PROVIDERS: PCP Family Medicine; Visit Provider Family Medicine | DX: E87.6 Hypokalemia (principal) | CPT/HCPCS: 80048 ==

== ENCOUNTER 2023-10-15 20:24 | Emergency (ER) | payer SELFPAY ==
[2023-10-15 20:34] VITALS: BP 149/90; PULSE 65; RESP 14; TEMP 36.6; O2SAT 97
--- NOTE | 2023-10-15 21:26 | ED_ITS ---
HPI - Ear Problem General: Chief complaint: Ear Stated complaint: Rt Ear Infection Time Seen by Provider: 10/15/23 20:39 Source: patient Mode of arrival: ambulatory Limitations: no limitations History of Present Illness: Patient is a 28-year-old male presenting to the emergency department complaining of right ear pain onset 1 week. Pain is gradually worsened and he states he is now having drainage from the ear. Also states he is having some right-sided facial pain. Unrelated, he notes crusted lesions to his mouth, bilateral upper extremities, and chest. Denies coming into contact with anything suspicious. He states that he bought 2 [id number] animal antibiotics which she started taking today. Has been taking Tylenol and ibuprofen for pain. No hearing changes, fevers, nausea or vomiting, or other symptoms reported at this time. MD Complaint: ear pain and ear discharge Location: right ear Duration: constant Severity: severe Relieving factors: nothing Exacerbating factors: palpation Discharge from ear: yes - clear Associated symptoms: Reports ear or mastoid pain; Denies fever(s), headache(s), neck pain or tinnitus Treatment prior to arrival: other (Animal antibiotics and pain medications) Review of Systems General: Reports: 10 or more systems reviewed and unremarkable except in HPI and below Const: Denies: fever(s), chills or fatigue Eyes: Denies: change in vision ENMT: Reports: ear or mastoid pain, ear discharge and sinus pain; Denies: throat pain, change in hearing, tinnitus or nasal discharge Card: Denies: chest pain, palpitations, swelling of feet/ankles or lightheadedness Resp: Denies: dyspnea, productive cough or wheezing GI: Denies: abdominal pain, nausea, vomiting, diarrhea or constipation : Denies: flank pain, difficulty urinating, dysuria or urinary frequency Musc: Denies: neck pain, back pain or joint pain Skin/Breast: Reports: rash and erythema Neuro: Denies: headache(s), numbness in extremities or weakness in extremities PFSH ED PFSH: Medical History Thoracic and lumbosacral neuritis Back pain Compression fracture of vertebra Depression Seizure Insomnia Anxiety Surgical History No pertinent past surgical history Family History Other CAD (coronary artery disease) Cancer Social History Smoking and tobacco/nicotine status: current every day tobacco/nicotine user smokeless tobacco Alcohol intake: current Alcohol intake frequency: holidays/special occasions only Substance/Drug Use: never Housing: House Physical Exam Const: COMMON NORMALS: no acute distress and healthy appearing GENERAL APPEARANCE: cooperative, comfortable and well developed HENMT: COMMON NORMALS: normocephalic, atraumatic, hearing grossly normal bilaterally, Normal external nose present and Normal nasal mucous membranes and turbinates present HEAD & SCALP: normal to inspection, normocephalic and atraumatic FACE & SINUS: normal facial exam and sinuses nontender NOSE: Normal external nose present, Normal nares present, No nasal polyps present and Normal nasal mucous membranes and turbinates present EXTERNAL EAR: Yes other (Pain with manipulation of the right external ear) EXTERNAL AUDITORY CANAL: Abnormal EAC present EAC laterality: right Details: erythema, edema, EAC tenderness and otic discharge Details: clear (Crusted) TYMPANIC MEMBRANE: TM normal on the left and TM abnormal TM laterality: right Details: bulging, erythematous and loss of landmarks MOUTH: Normal oral and palatal mucosa present THROAT: posterior oropharynx normal and tonsils normal Eye: COMMON NORMALS: EOMs intact bilaterally, conjunctivae normal and normal visual bui by confrontation GENERAL EYE: appearance normal, both eyes and all related structures CONJUNCTIVA: Yes conjunctivae normal Neck/C-Spine: COMMON NORMALS: full ROM, no lymphadenopathy, supple and no meningeal signs GENERAL: Yes normal visual inspection Chest: COMMONS NORMALS: normal inspection of the chest Resp: COMMON NORMALS: normal respiratory effort and clear to auscultation bilaterally EFFORT & INSPECTION: Yes able to speak in complete sentences AUSCULTATION: clear to auscultation bilaterally Cardio: COMMON NORMALS: regular rate, regular rhythm, S1 normal heart sound present and S2 normal heart sound present RATE: regular rate RHYTHM: regular rhythm HEART SOUNDS: S1 normal heart sound present, S2 normal heart sound present, no gallops, no murmurs and no rubs Extremity: COMMON NORMALS: normal to inspection, full ROM and capillary refill normal Neuro: MENINGEAL SIGNS: Yes no meningeal signs Skin: NARRATIVE SKIN EXAM: Yellow, crusted over lesions noted just right of the patient's mouth, to bilateral upper extremities, and to chest region. Course Vital Signs: Vital signs: Vital Signs Temperature 97.9 F 10/15/23 20:34 Pulse Rate 65 10/15/23 20:34 Respiratory Rate 14 10/15/23 20:34 Blood Pressure 149/90 10/15/23 20:34 Pulse Oximetry 97 10/15/23 20:34 MDM - Ear Medical Decision Making Patient presents with signs and symptoms of a right otitis externa as well as otitis media. He is afebrile on arrival and his vitals unremarkable. Examin ation revealed pain with ambulation of the right ear as well as suspicious findings of the infection, had started taking animal antibiotics today. For his external infection as well as middle ear infection, will prescribe him Ciprodex as well as oral Augmentin. For his rash with the crusted over lesions, which appears consistent with impetigo, I will prescribe mupirocin. He has other satellite/red inflamed lesions that I will prescribe triamcinolone for. I believe his rash is independent of his ear infection, and I informed him to follow-up with primary care later this week for reevaluation. He will continue taking Tylenol and ibuprofen at home for pain. All other questions and concerns addressed at this time. No radiology studies performed this visit Discharge Plan Discharge Patient Disposition: Home Clinical Impression: Otitis externa, Otitis media, Impetigo Condition: Stable Prescriptions: New mupirocin 2 % ointment 1 applic topical BID Qty: 15 0RF amoxicillin-pot clavulanate 875-125 mg tablet 1 tab PO BID 10 Days Qty: 20 0RF triamcinolone acetonide 0.1 % cream 1 applic topical BID Qty: 15 0RF ciprofloxacin-dexamethasone 0.3-0.1 % drops,suspension 4 drp otic (ear) BID 7 Days Qty: 7.5 0RF No Action alprazolam 0.5 mg tablet 0.5 mg PO BID PRN (Reason: anxiety) 15 Days Qty: 30 2RF amlodipine 5 mg tablet 5 mg PO QAM PRN (Reason: Hypertension) Qty: 90 1RF Rx Instructions: Blood pressure over 130 systolic or 90 diastolic Depakote ER 500 mg tablet extended release 24 hr 1,000 mg PO DAILY Qty: 60 0RF Keppra XR 750 mg tablet extended release 24 hr 1,500 mg PO DAILY Qty: 60 0RF acetaminophen 500 mg Tablet 1,000 mg PO Q6H PRN (Reason: Pain) potassium gluconate 595 mg (99 mg) Tablet 1,190 mg PO QAM Discharge Orders: Discharge ED (Routine); Ordered 10/15/23 Ordered By: Brendan Bautista Referrals: Aneta Pack MD [Primary Care Provider] - Discharge Diet: Usual diet Discharge Activity: Increase activity as tolerated Patient Instructions: Otitis Externa - Adult, Impetigo (ED), Ear Infection (ED) Activity Restrictions/Additional Instructions: Augmentin and Ciprodex for ear infection. Impetigo to crusted lesions as directed. Topical steroid to inflamed lesions. Continue taking Tylenol and ibuprofen for any pain or fevers. Follow-up with primary care as discussed. Coding Level of Care Code ED Ip Litigation Associate for Dalila Hennessy
[2023-10-15] MEDS: amoxicillin-clav 875-125 mg Tablet 1 TAB PO (21:28)
[2023-10-15] MEDS: ciprofloxacin-dexameth Otic Susp 7.5 mL Btl 4 DROP EAR-RIGHT (21:29)
[2023-10-15] MEDS: mupirocin oint 22 gm 1 APPLIC TOPICAL (21:29)
== END 2023-10-15 21:36 | disposition home or self-care (01) ==
PROVIDERS: Emergency Provider Physician Assistant; PCP Family Medicine
DX: H60.91 Unspecified otitis externa, right ear (principal); H66.91 Otitis media, unspecified, right ear; L01.00 Impetigo, unspecified; F17.220 Nicotine dependence, chewing tobacco, uncomplicated
CPT/HCPCS: 99283

== ENCOUNTER 2024-09-06 18:11 | Emergency (ER) | payer MEDICAID, SELFPAY ==
[2024-09-06 18:32] VITALS: BP 154/102; PULSE 73; RESP 16; TEMP 36.8; O2SAT 100; BMI 24.3
--- NOTE | 2024-09-06 18:43 | XRR_ITS ---
PROCEDURE INFORMATION: Exam: XR Left Ribs with PA Chest Exam date and time: 09/06/2024 7:24 PM Age: 29 years old Clinical indication: Other: Lt rib pain; Lower back pain with RT sciatica post fall x 4 days ago; Lt lower lateral rib pain post fall (blunt trauma); Additional info: Lower back pain with RT sciatica post fall x 4 days ago; Lt lower lateral rib pain post fall (blunt trauma) TECHNIQUE: Imaging protocol: Radiologic exam of the left ribs with PA chest. Views: 3 views COMPARISON: CR XR chest 1V portable [id number] 04/23/2023 6:57 PM FINDINGS: Lungs: Unremarkable. No consolidation. Pleural spaces: Unremarkable. No pleural effusion. No pneumothorax. Heart/Mediastinum: Unremarkable. No cardiomegaly. Bones/joints: Unremarkable. XR/XR ribs LT mn 3V w CXR1V [id number] IMPRESSION: No acute findings.
--- NOTE | 2024-09-06 18:43 | XRR_ITS ---
PROCEDURE INFORMATION: Exam: XR Lumbosacral Spine Exam date and time: 09/06/2024 7:24 PM Age: 29 years old Clinical indication: Pain; Lumbago; Additional info: Lower back pain with RT sciatica post fall x 4 days ago; Lt lower lateral rib pain post fall (blunt trauma) TECHNIQUE: Imaging protocol: Radiologic exam of the lumbosacral spine. Views: 2 or 3 views. COMPARISON: CR XR lumbar spine 2-3V* [id number] 10/31/2022 8:59 PM FINDINGS: Bones/joints: The vertebral body alignment and stature is intact. No fracture or subluxation. Disc space narrowing at L5-S1 which may be developmental. There is partial sacralization of L5. Soft tissues: Unremarkable. XR/XR lumbar spine 2-3V* [id number] IMPRESSION: No acute findings.
--- NOTE | 2024-09-06 20:05 | ED_ITS ---
HPI - Back Pain/Injury General: Chief Complaint: Back Pain/Injury Stated Complaint: fall rib pain Time Seen by Provider: 09/06/24 18:36 Source: patient Mode of arrival: ambulatory Limitations: no limitations History of Present Illness: 29yo male presents with family for evalu ation of left-sided rib and low back pain. 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 Patient reports it feels like it did when he had fractured ribs in the past. Patient denies difficulty breathing, chest pain, vomiting, use of blood thinners. Associated symptoms: Deny chills or fever(s) Related Data Home Medications ?Medication ?Instructions ?Recorded ?Confirmed acetaminophen 500 mg tablet 1,000 mg PO Q6H PRN Pain 1 06/24/22 11/26/23 Previous Rx's ?Medication ?Instructions ?Recorded mupirocin 2 % topical ointment 1 applic topical BID #1 5 grams 10/15/23 alprazolam 0.5 mg tablet 0.5 mg PO BID PRN anxiety 30 days 06/02/24 #60 tabs divalproex 500 mg tablet,extended See Rx Instructions .Route 06/18/24 release 24 hr .COMPLEX #180 tabs levetiracetam 750 mg See Rx Instructions .Route 0 06/18/24 tablet,extended release 24 hr .COMPLEX #180 tabs amlodipine 5 mg tablet 5 mg PO QAM PRN Hypertension #90 08/28/24 tabs cyclobenzaprine 10 mg tablet 10 mg PO TID PRN muscle s pasm #20 09/06/24 tabs ketorolac 10 mg tablet 10 mg PO Q6H PRN pain 5 days #20 09/06/24 tabs Allergies Allergy/AdvReac Type Severity Reaction Status Date / Time seafood Allergy itching Uncoded 11/26/23 10:04 Review of Systems Const: Denies: fever(s), chills or body aches Card: Denies: chest pain Resp: Reports: other; Denies: dyspnea PFSH ED PFSH: Medical History Thoracic and lumbosacral neuritis Back pain Compression fracture of vertebra Depression Seizure Insomnia Anxiety Surgical History No pertinent past surgical history Family History Other CAD (coronary artery disease) Cancer Social History Smoking and tobacco/nicotine status: current every day tobacco/nicotine user (chews) smokeless tobacco Alcohol intake: current Alcohol intake frequency: holidays/special occasions only Substance/Drug Use: never Housing: House Physical Exam Const: COMMON NORMALS: no acute distress, patient oriented x3, healthy appearing and alert GENERAL APPEARANCE: cooperative OR IENTATION/CONSCIOUSNESS: Yes awake OTHER: Patient is ambulatory to the exam room unassisted. He is sitting upright on the stretcher no acute distress. He is able to give history with no difficulty. He is interactive with exam appropriately. Family is at bedside HENMT: COMMON NORMALS: normocephalic and atraumatic HEAD & SCALP: normocephalic and atraumatic Chest: CHEST: Yes Symmetrical chest wall rise, No localized rib tenderness with anteroposterior compression and Yes tenderness rib (Left lateral) Resp: COMMON NORMALS: normal respiratory effort, No use of accessory muscles and clear to auscultation bilaterally AUSCULTATION: clear to auscultation bilaterally Back/Pelvis: COMMON NORMALS: thoracic and lumbar spine normal to inspection THORACIC SPINE/UPPER BACK: No thoracic spinal tenderness and No paraspinal muscle tenderness LUMBAR SPINE/LOWER BACK: No lumbar spinal tenderness and Yes paraspinal muscle tenderness Extremity: COMMON NORMALS: full ROM Neuro: COMMON NORMALS: patient oriented x3 SENSORIUM/ORIENTATION: Yes alert Psych: COMMON NORMALS: cooperative Course Vital Signs: Vital signs: Vital Signs Temperature 98.2 F 09/06/24 18:32 Pulse Rate 73 09/06/24 18:32 Respiratory Rate 16 09/06/24 18:32 Blood Pressure 154/102 09/06/24 18:32 Pulse Oximetry 100 09/06/24 18:32 Oxygen Delivery Me thod Room Air 09/06/24 18:32 MDM - Back Pain/Injury Medical Decision Making 29yo male presents with family for evaluation of left-sided rib and low back pain. 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 Patient reports it feels like it did when he had fractured ribs in the past. Patient denies difficulty breathing, chest pain, vomiting, use of blood thinners. Patient is nontoxic in appearance. Vital signs are stable. No fracture or acute bony abnormality noted on the x-ray of the ribs or lumbar spine. Discussed findings with patient. Advised that he likely does have rib contusions. Patient did receive ketorolac in the emergency department and prescription of ketorolac and cyclobenzaprine was sent to patient's pharmacy. Discussed activity modification. Recommend follow-up with primary care, call in 2 to 3 days with an update of symptoms and to discuss recheck. Return precautions provided. Patient states understanding and has no further questions or concerns at this time. Medical Records I reviewed the patient's medical records. Labs Radiology Impressions Lumbar Spine X-Ray 09/06/24 18:43 IMPRESSION: No acute findings. Ribs X-Ray 09/06/24 18:43 IMPRESSION: No acute findings. All radiology interpretation(s) finalized by discharge Discharge Plan Discharge Patient Disposition: Home Clinical Impression: Contusion of rib on left side Qualifiers: Encounter type: initial encounter Qualified Code(s): S20.212A - Contusion of left front wall of thorax, initial encounter Low back strain Qualifiers: Encounter type: initial encounter Qualified Code(s): S39.012A - Strain of muscle, fascia and tendon of lower back, initial encounter Condition: Stable Prescriptions: New ketorolac 10 mg tablet 10 mg PO Q6H PRN (Reason: pain) 5 Days Qty: 20 0RF cyclobenzaprine 10 mg tablet 10 mg PO TID PRN (Reason: muscle spasm) Qty: 20 0RF Discontinued prednisone 20 mg tablet 40 mg PO DAILY 5 Days Qty: 10 0RF sulfamethoxazole-trimethoprim [Bactrim DS] 800-160 mg tablet 1 tab PO BID Qty: 10 0RF No Action amlodipine 5 mg tablet 5 mg PO QAM PRN (Reason: Hypertension) Qty: 90 1RF Rx Instructions: Blood pressure over 130 systolic or 90 diastolic alprazolam 0.5 mg tablet 0.5 mg PO BID PRN (Reason: anxiety) 30 Days Qty: 60 3RF levetiracetam 750 mg tablet extended release 24 hr See Rx Instructions .ROUTE .COMPLEX Qty: 180 1RF Dose Instruction: Take 2 tablets by mouth once daily Rx Instructions: Take 2 tablets by mouth once daily divalproex 500 mg tablet extended release 24 hr See Rx Instructions .ROUTE .COMPLEX Qty: 180 1RF Dose Instruction: Take 2 tablets by mouth once daily Rx Instructions: Take 2 tablets by mouth once daily acetaminophen 500 mg Tablet 1,000 mg PO Q6H PRN (Reason: Pain) mupirocin 2 % ointment 1 applic topical BID Qty: 15 0RF Discharge Orders: Discharge ED (Routine); Ordered 09/06/24 Ordered By: Bonifacio Canales Referrals: Aneta Pack MD [Primary Care Provider, [facility]] Discharge Diet: Usual diet Discharge Activity: Increase activity as tolerated Patient Instructions: Low Back Strain (ED), Lower Back Exercises (ED), Rib Contusion (ED), Pain Management Activity Restrictions/Additional Instructions: No fractures or acute bony abnormalities noted on the x-rays today Ketorolac has been sent to the pharmacy to help with the rib pain. Please not take ibuprofen or naproxen while taking ketorolac Cyclobenzaprine has been sent to the pharmacy to help with the back strain. Pl ease do not drive or operate heavy machinery while taking cyclobenzaprine. Activity as tolerated Follow-up with primary care, call in 2 to 3 days with an update of symptoms and to discuss a recheck Return to the emergency department if any rapid worsening symptoms, further injury, and as needed Print Language: Turkmen Coding Level of Care Code ED Medical Receptionist Medical Assistant for Dalila Hennessy
[2024-09-06] MEDS: ketorolac 30 mg/mL INJ IM (21:43)
== END 2024-09-06 21:43 | disposition home or self-care (01) ==
PROVIDERS: Emergency Provider Nurse Practitioner; PCP Family Medicine
DX: S20.212A Contusion of left front wall of thorax, initial encounter (principal); S39.012A Strain of muscle, fascia and tendon of lower back, initial encounter; F17.220 Nicotine dependence, chewing tobacco, uncomplicated; W19.XXXA Unspecified fall, initial encounter
CPT/HCPCS: 71101; 72100; 96372; 99284; J1885